=== PATIENT | male | born 1965 | race Caucasian/White ===

== ENCOUNTER → 2021-05-24 13:08 | Outpatient (BNVA) | payer MEDICAID, SELFPAY | PROVIDERS: PCP Physician Assistant; Visit Provider Physician Assistant Surgical ==

== ENCOUNTER → 2021-05-25 08:15 | Outpatient (BNVA) | payer MEDICAID, SELFPAY | PROVIDERS: PCP Physician Assistant; Visit Provider Surgery ==

== ENCOUNTER 2021-05-30 08:20 | Outpatient (REF) | payer OTHER, SELFPAY ==
--- NOTE | ~2021-05-30 | XR_ITS ---
EXAMINATION: XR CHEST CLINICAL INFORMATION: Obesity. COMPARISON: None TECHNIQUE: 2 views of the chest were obtained. FINDINGS: The lungs are clear. The cardiomediastinal silhouette is normal in size. There is no pleural effusion or pneumothorax. No acute osseous abnormality. XR/XR chest 2V IMPRESSION: No acute cardiopulmonary findings.
--- NOTE | 2021-05-30 08:32 | ECG_ITS ---
Test Reason : morbid obesity Blood Pressure : / mmHG Vent. Rate : 077 BPM Atrial Rate : 000 BPM P-R Int : 000 ms QRS Dur : 100 ms QT Int : 388 ms P-R-T Axes : 000 063 024 degrees QTc Int : 439 ms Atrial fibrillation Abnormal ECG No previous ECGs available Referred By: Darrell Saldana Electronically Signed By:SHANE TINOCO
[2021-05-30 08:46] LABS: MANUAL DIFF FLAG NO
[2021-05-30 09:10] LABS: Estimated Average Glucose 157 mg/dL; Hemoglobin A1c % 7.1 %
[2021-05-30 09:13] LABS: Basophils Percent Auto 0.5 % (0-2); Eosinophils Absolute Auto 0.1 X10*3/uL (0.0-0.4); Eosinophils Percent Auto 1.7 % (0-4); Hematocrit 47.3 % (42.0-52.0); Hemoglobin 16.1 g/dl (14.0-18.0); Imm Gran Abs Auto 0.02 X10*3/uL (0.00-0.03); Imm Gran Pct Auto 0.3 % (0.0-0.4); Lymphocytes Absolute Auto 1.7 X10*3/uL (1.2-4.9); Lymphocytes Percent Auto 25.4 % (20-40); Mean Corpuscular Hemoglobin 31.2 pg (27.0-33.0); Mean Corpuscular Volume 91.7 fL (80.0-98.0); Mean Platelet Volume 10.1 fL (9.4-12.4); Monocytes Absolute Auto 0.7 X10*3/uL (0.1-1.2); Monocytes Percent Auto 10.8 % (2-11); Neutrophils Percent Auto 61.3 % (45-73); Platelet Count 235 X10*3/uL (160-400); Red Blood Count 5.16 X10*6/uL (4.60-5.80); Red Cell Distribution Width 13.3 % (11.0-16.0); White Blood Count 6.5 X10*3/uL (4.8-10.8)
[2021-05-30 09:31] LABS: Alanine Aminotransferase 70 U/L (0-40); Albumin Level 4.3 g/dL (3.5-5.0); Alkaline Phosphatase 73 U/L (39-117); Anion Gap 12 (12-20); Aspartate Amino Transferase 50 U/L (5-37); Bilirubin Total 0.6 mg/dL (0.0-1.0); Blood Urea Nitrogen 18 mg/dL (9-16); C Reactive Protein 0.36 mg/dL (< or = 0.50); Calcium 9.6 mg/dL (8.4-10.2); Carbon Dioxide 23 mmol/L (22-29); Chloride 106 mmol/L (96-108); Cholesterol 82 mg/dL; Estimated Glomerular Filt Rate > 60; Glucose Random 96 mg/dL (60-115); HDL Cholesterol 37 mg/dL; Iron 77 mcg/dL (45-160); LDL Cholesterol Calculated 24 mg/dl; Percent Iron Saturation 21 % (15-50); Potassium 4.4 mmol/L (3.3-5.1); Sodium 137 mmol/L (135-145); Total Iron Binding Capacity 359 mcg/dL (228-428); Total Protein 6.8 g/dL (6.5-8.0); Triglycerides 108 mg/dL; Unsaturated Iron Binding 282 ug/dL
[2021-05-30 09:55] LABS: TSH reflex Free T4 2.19 uIU/mL (0.32-4.0); Vitamin D 25-OH Total 33.7 ng/mL (>30)
[2021-05-30 09:57] LABS: Folate > 20.0 ng/mL (> or = 4.0); Vitamin B12 641 pg/mL (200-900)
[2021-05-30 10:01] LABS: Ferritin 205 ng/mL (20-250); Insulin 15 uU/mL (2-29)
[2021-05-31 11:42] LABS: Calcium (PTHI) 9.4 mg/dL (8.6-10.3); PTHI 130 pg/mL (14-64)
[2021-06-03 10:06] LABS: Vitamin B1 7 nmol/L (8-30)
[2021-06-03 13:56] LABS: Zinc 72 mcg/dL (60-130)
[2021-06-07 22:17] LABS: Vitamin A 73 mcg/dL (38-98)
== END 2021-05-30 08:21 | disposition home or self-care (01) ==
LOC: HO.XRAY 08:20
PROVIDERS: PCP Physician Assistant; Visit Provider Surgery
DX: E03.9 Hypothyroidism, unspecified (principal); E10.9 Type 1 diabetes mellitus without complications; E66.01 Morbid (severe) obesity due to excess calories; I10 Essential (primary) hypertension; G47.30 Sleep apnea, unspecified; E78.5 Hyperlipidemia, unspecified; I48.91 Unspecified atrial fibrillation; Z99.89 Dependence on other enabling machines and devices
CPT/HCPCS: 36415; 71046; 80053; 80061; 82306; 82607; 82728; 82746; 83036; 83525; 83540; 83970; 84425; 84443; 84590; 84630; 85025; 86140; 93005

== ENCOUNTER 2021-05-31 11:28 | Outpatient (REF) | payer OTHER, SELFPAY ==
[2021-06-01 12:33] LABS: H Pylori Breath Test Negative (Negative)
== END 2021-05-31 11:29 ==
LOC: HO.LNP 11:28
PROVIDERS: Visit Provider Surgery
DX: Z11.0 Encounter for screening for intestinal infectious diseases (principal); Z20.822 Contact with and (suspected) exposure to COVID-19
CPT/HCPCS: 83013; 99211

== ENCOUNTER → 2021-07-18 09:27 | Outpatient (BNVA) | payer OTHER, SELFPAY | PROVIDERS: PCP Physician Assistant; Referring Provider Physician Assistant; Visit Provider Dietitian, Registered | DX: E66.01 Morbid (severe) obesity due to excess calories (principal); E10.9 Type 1 diabetes mellitus without complications; Z68.41 Body mass index [BMI] 40.0-44.9, adult | CPT/HCPCS: 97802 ==

== ENCOUNTER 2021-07-19 07:41 | Outpatient (REF) | payer OTHER, SELFPAY ==
--- NOTE | ~2021-07-19 | FL_ITS ---
EXAMINATION: XR FLUOROSCOPY UPPER GI WITH AIR CLINICAL INFORMATION: Morbidly severe obesity due to excess calories. Preoperative exam. COMPARISON: None TECHNIQUE: Routine upper GI air-contrast study was performed in upright and lying position. FINDINGS: Following oral administration of thick barium and effervescent granules there is normal propagation of bolus from the oral cavity through the pharynx, esophagus into stomach without any evidence of obstruction, narrowing or stricture. The course, caliber and peristalsis of the stomach, duodenal bulb and the sweep are normal. In the lying position, there is moderate gastroesophageal reflux with a small sliding hiatal hernia. The mucosal pattern of the esophagus, stomach and the duodenum is normal. FLUOROSCOPY TIME: 1.8 minutes DOSE AREA PRODUCT: 49.338 uGy-m2 (microgray-meter squared) FL/FL upper GI w air IMPRESSION: Moderate gastroesophageal reflux with a small sliding reducible hiatal hernia. Rest of the upper GI exam is unremarkable.
--- NOTE | ~2021-07-19 | US_ITS ---
EXAMINATION: US COMPLETE ABDOMEN WITH LIVER ELASTOGRAPHY CLINICAL INFORMATION: Obesity. COMPARISON: None. TECHNIQUE: Real-time imaging of the abdominal viscera. Noninvasive ultrasound liver fibrosis assessment is performed using Sola ElastPQ point quantification shear wave elastography (2D-SWE) with a C5-2 MHz transducer. Multiple elastography samples are obtained. FINDINGS: PANCREAS: Normal. ABDOMINAL AORTA: The proximal, middle, and distal aortic segments are normal in caliber. INFERIOR VENA CAVA: Visualized portions are normal. LIVER: Liver echotexture is increased. Liver contour is normal. The liver is enlarged. No focal lesion or intrahepatic biliary duct dilatation. The right lobe measures 21 cm in length. The left lobe measures 12 cm in length. Portal flow is normal/hepatopedal. Shear wave liver elastography median stiffness is 1.5 m/s (reference: normal median stiffness is 1.3 m/s or less). IQR/median stiffness to assess sampling precision is 0.07 (reference: good quality data set is IQR/median stiffness of 0.15 or less). GALLBLADDER: There are gallstones in the gallbladder. The gallbladder is normal in size. The gallbladder wall is normal. COMMON BILE DUCT: Normal in caliber measuring 0.6 cm in diameter. RIGHT KIDNEY: There is a 2 x 1.4 x 1.5 cm cyst exophytic to the lower pole. No hydronephrosis. No renal calculi or mass lesions. The kidney measures 12.8 cm in maximum dimension. LEFT KIDNEY: Normal. No hydronephrosis. No renal calculi or focal parenchymal lesions. The kidney measures 11.7 cm in maximum dimension. SPLEEN: Slightly enlarged. The spleen measures 13.4 cm in maximum dimension. FREE FLUID: None. US/US abdomen comp w elastography IMPRESSION: 1. Impression: Enlarged echogenic liver probably representing fatty infiltration. Gallstones. Mild splenomegaly. Right renal cyst. 2. Liver elastography: Adequate liver sampling. In the absence of other known clinical signs, rules out compensated advanced chronic liver disease. REFERENCE: Society of Radiologists in Ultrasound Liver Stiffness Thresholds (2020): LIVER STIFFNESS THRESHOLDS: *Liver Stiffness equal or less than 1.3 m/s: High probability of being normal. *Liver Stiffness less than 1.7 m/s: In the absence of other known clinical signs, rules out compensated advanced chronic liver disease. *Liver Stiffness 1.7-2.1 m/s: Suggestive of compensated advanced chronic liver disease but need further test for confirmation. *Liver Stiffness over 2.1 m/s: Rules in compensated advanced chronic liver disease. *Liver Stiffness over 2.4 m/s: Suggestive of clinically significant portal hypertension. QUALITY OF DATA SET: *IQR/Median value equal or less than 0.15 implies a quality data set. *IQR/Median value over 0.15 implies a poor quality data set. SIGNIFICANT CHANGE FROM PRIOR EXAM: Significant change if liver stiffness measurement is 10% or greater from prior exam. OTHER CONSIDERATIONS: The stage of liver fibrosis may be overestimated in the setting of acute hepatitis, liver inflammation, elevated liver function tests, hepatic vascular congestion, obstructive cholestasis, non-fasting state, and infiltrative diseases such as amyloidosis and lymphoma. In some patients with NAFLD, the liver stiffness thresholds for compensated advanced chronic liver disease may be lower. In causes other than viral hepatitis and NAFLD, liver stiffness thresholds are not well established.
== END 2021-07-19 07:42 | disposition home or self-care (01) ==
LOC: HO.US 07:41
PROVIDERS: PCP Physician Assistant; Visit Provider Surgery
DX: E66.01 Morbid (severe) obesity due to excess calories (principal); E10.9 Type 1 diabetes mellitus without complications; I10 Essential (primary) hypertension; G47.30 Sleep apnea, unspecified; E78.5 Hyperlipidemia, unspecified; I48.91 Unspecified atrial fibrillation; E03.9 Hypothyroidism, unspecified
CPT/HCPCS: 74246; 76705; 76981

== ENCOUNTER → 2021-07-21 10:41 | Outpatient (BNVA) | payer OTHER, SELFPAY | PROVIDERS: PCP Physician Assistant; Referring Provider Physician Assistant; Visit Provider Internal Medicine | DX: Z01.810 Encounter for preprocedural cardiovascular examination (principal); I48.19 Other persistent atrial fibrillation; I10 Essential (primary) hypertension; E11.8 Type 2 diabetes mellitus with unspecified complications; G47.30 Sleep apnea, unspecified | CPT/HCPCS: 93005; 99202 ==

== ENCOUNTER → 2021-07-22 08:08 | Outpatient (BNVA) | payer OTHER, SELFPAY | PROVIDERS: PCP Physician Assistant; Visit Provider Surgery ==

== ENCOUNTER 2021-07-25 14:20 | Outpatient (REF) | payer OTHER, SELFPAY ==
[2021-07-25 15:02] LABS: Estimated Average Glucose 134 mg/dL; Hemoglobin A1c % 6.3 %
== END 2021-07-25 14:21 | disposition home or self-care (01) ==
LOC: HO.LAB 14:20
PROVIDERS: Surgery; PCP Physician Assistant; Visit Provider Physician Assistant
DX: E11.8 Type 2 diabetes mellitus with unspecified complications (principal)
CPT/HCPCS: 36415; 83036

== ENCOUNTER → 2021-08-03 09:50 | Outpatient (REF) | payer OTHER, SELFPAY ==
--- NOTE | ~2021-08-03 | NM_ITS ---
Myocardial perfusion study Indication: Atrial fibrillation to evaluate for myocardial ischemia Technique: The patient was brought in for a Lexiscan perfusion study on 08/03/2021. Patient performed low-level exercise and was injected 0.4 mg of Lexiscan intravenously. Within a minute of injection, 45 mCi of sestamibi was given intravenously. Images were obtained using the SPECT gamma camera interlaced with the gating device. Images were obtained in supine position. Resting perfusion study was performed on 08/04/2021. Patient was administered 45 mCi of sestamibi intravenously at rest. Images were then obtained in supine position. Images obtained with and without CT attenuation. Total DLP 179 mGy-cm. Images were processed with the software and compared side to side in short axis, horizontal long axis and vertical long axis views. Findings: The stress perfusion study showed non attenuated images show mildly reduced uptake in the inferior wall of the LV myocardium. Remainder of the LV myocardium is normally perfused. Attenuation corrected images show normal uptake of radiotracer in all segments of LV myocardium. The gated study shows normal LV systolic function with calculated LVEF of 62%. LV cavity is mildly dilated size. The gated study shows normal systolic wall thickening and contraction of segments. Resting study shows no change in perfusion pattern except perfusion study. Gating at rest reveals normal systolic wall motion with ejection fraction at 58%. The findings are consistent with normal myocardial perfusion. NM/NM cardiolite stress test Impression: 1. Myocardial perfusion imaging study shows normal myocardial perfusion 2. Gated LVEF is 62% 3. Transient ischemic dilatation not present EKG is nondiagnostic for ischemia
--- NOTE | 2021-08-03 09:56 | CA_ITS ---
Acquisition Time: 2021-08-03 10:02:18 Total Exercise Time: 00:02:00 Test Indications: abn ekg, afib, preop Medications: see chart Protocol: LEXISCAN Max HR: 146 BPM 88% of Pred: 165 BPM Max BP: 124/076 mmHG Max Work Load: 1.6 METS Pharmacological stress test with Lexiscan injection, while walking on treadmill, without mild sob, no chest discomfort, without arrythmia, with normotensive response to injection, with nondiagnostic EKG for ischemia. Nuclear images pending. Test reviewed with Dr Wood. Referred By: Bowen Wood Overread By: KEVIN JUNIOR
== END ==
LOC: HO.CARD 09:50
PROVIDERS: Visit Provider Internal Medicine
DX: I48.19 Other persistent atrial fibrillation (principal)
CPT/HCPCS: 78452; 93017; A9500; J0280; J2785

== ENCOUNTER → 2021-08-08 07:24 | Outpatient (REF) | payer OTHER, SELFPAY ==
--- NOTE | 2021-08-08 07:27 | CA_ITS ---
Transthoracic Echocardiogram Patient (Last, First, Middle): Colton Taylor, Gender: Male Date of : 1965 Age: 56 Procedure Date: 08/08/2021 Procedure Type: Transthoracic Echocardiogram Location: OP Height: 182.88 cm Weight: 138.35 kg BSA: 2.55 m2 Heart Rate: bpm BP: 124 / 78 mmHg Fig Caprifier: Referring MD: Bowen Wood MD Symptoms: I48.19 - Other persistent atrial fibrillation Study Quality: Fair ECG Rhythm: Atrial Fibrillation Conclusions: - The left ventricular systolic function is normal. The calculated ejection fraction is 63% by biplane method. - There is mild mitral annular calcification. - No obvious valvular pathology seen on this study. Findings Left Ventricle Normal left ventricular cavity size. There is mildly increased left ventricular wall thickness. The left ventricular systolic function is normal. The calculated ejection fraction is 63% by biplane method. There is no evidence of regional wall motion abnormalities. Diastolic function is indeterminate on the basis of available data. Right Ventricle Normal right ventricular cavity size and systolic function. Atria The left atrium is moderately dilated. The right atrium is normal in size. Aortic Valve There is a normal trileaflet aortic valve. There is no aortic valve stenosis. There is no aortic valve regurgitation. Mitral Valve There is mild anterior mitral leaflet thickening. There is mild mitral annular calcification. There is trace mitral valve regurgitation. There is no mitral valve stenosis. Pulmonic Valve The pulmonic valve was not well visualized. Tricuspid Valve Normal tricuspid valve structure. There is no tricuspid valve regurgitation. The pulmonary artery systolic pressure is normal. Great Vessels The aortic annulus, sinuses of valsalva, and asc aorta are normal in size. Venous The inferior vena cava is normal in size and collapses greater than 50% with inspiration. Pericardium/Pleural There is no evidence of pericardial effusion. Prior Study Comparison No prior study available for comparison. Recommendations, Care & Conclusions No obvious valvular pathology seen on this study. Measurements 2D Linear Measurements IVSd: 1.20 0.6-0.9/0.6-1.0 cm LVIDd: 4.73 3.9-5.3/4.2-5.9 cm LVIDd Index: 1.85 2.4-3.2/2.2-3.1 cm/m2 LVIDs: 3.02 2.0-3.6 cm LVPWd: 1.23 0.7-1.1 cm Ao Root: 3.30 2.1-3.5 cm LA Diam: 4.40 2.7-3.8/3.0-4.0 cm LAIDs Index: 1.73 1.5-2.3 cm/m2 LV Mass: 271.69 67-162/88-224 g LV Mass Index: 106.54 43-95/49-115 g/m2 LVOT Diam: 2.00 3.0+(-)1.3 cm 2D Systolic Function EF 4C: 58.50 >55% EF 2C: 67.30 >55% EF BiP: 62.70 >55% Mitral Valve MV Pk E: 1.00 MV Decel Time: 117.00 E'Lateral: 14.40 E'Medial: 11.20 E/E' Med: 8.90 E/E' Lat: 6.90 PHT: 34.00 MVA PHT: 6.47 Decel [place]: 8.59 Aortic Valve AoV Pk Mikhail: 1.26 AoV Mn Mikhail: 0.74 AoV VTI: 0.25 AoV Pk Grad: 6.00 Aov Mn Grad: 3.00 KIP Cont.VTI: 2.50 LVOT LVOT Pk Mikhail: 0.97 LVOT Mn Mikhail: 0.68 LVOT VTI: 0.20 LVOT Pk Grad: 4.00 LVOT Mn Grad: 2.00 LVOT Diam: 2.00 LVOT Area: 3.14 Diastolic Function MV Pk E: 1.00 E'Medial: 11.20 E/E' Med: 8.90 E' Laterial: 14.40 E/E' Lat: 6.90 Right Ventricle TAPSE (mm): 21.00 TVS' Mkihail: 9.00 Great Vessels Aorta Ao Root-2D: 3.30 2.0-3.7 cm Ao Asc: 3.40 2.1-3.4 cm Pulmonary Valve PV Pk Mikhail: 0.92 Peak PV Grad: 3.00 Updated in Other Vendor System with Status of Final Bowen Wood MD electronically signed on 08/08/2021 12:07:37 PM with status of Final
== END ==
LOC: HO.CARD 07:24
PROVIDERS: Visit Provider Internal Medicine
DX: I48.19 Other persistent atrial fibrillation (principal)
CPT/HCPCS: 93306

== ENCOUNTER → 2021-08-19 08:12 | Outpatient (BNVA) | payer OTHER, SELFPAY | PROVIDERS: PCP Physician Assistant; Visit Provider Surgery ==

== ENCOUNTER → 2021-08-26 08:55 | Outpatient (BNVA) | payer OTHER, SELFPAY | PROVIDERS: PCP Physician Assistant; Referring Provider Physician Assistant; Visit Provider Surgery | DX: Z13.89 Encounter for screening for other disorder (principal) ==

== ENCOUNTER → 2021-08-29 11:55 | Outpatient (BNVA) | payer OTHER, SELFPAY | PROVIDERS: PCP Physician Assistant; Referring Provider Physician Assistant; Visit Provider Physician Assistant | DX: Z12.11 Encounter for screening for malignant neoplasm of colon (principal); I48.21 Permanent atrial fibrillation; G47.30 Sleep apnea, unspecified; E66.01 Morbid (severe) obesity due to excess calories; Z68.39 Body mass index [BMI] 39.0-39.9, adult | CPT/HCPCS: 99202 ==

== ENCOUNTER 2021-09-01 06:13 | Inpatient (IN) | payer OTHER, SELFPAY ==
[2021-08-25 11:16] LABS: MANUAL DIFF FLAG NO
[2021-08-25 12:32] LABS: Basophils Percent Auto 0.5 % (0-2); Eosinophils Absolute Auto 0.1 X10*3/uL (0.0-0.4); Eosinophils Percent Auto 1.7 % (0-4); Hematocrit 49.3 % (42.0-52.0); Hemoglobin 16.6 g/dl (14.0-18.0); Imm Gran Abs Auto 0.02 X10*3/uL (0.00-0.03); Imm Gran Pct Auto 0.3 % (0.0-0.4); Lymphocytes Absolute Auto 1.5 X10*3/uL (1.2-4.9); Lymphocytes Percent Auto 23.1 % (20-40); Mean Corpuscular HGB Conc 33.7 g/dl (31.0-36.0); Mean Corpuscular Hemoglobin 30.9 pg (27.0-33.0); Mean Corpuscular Volume 91.6 fL (80.0-98.0); Mean Platelet Volume 10.2 fL (9.4-12.4); Monocytes Absolute Auto 0.6 X10*3/uL (0.1-1.2); Neutrophils Absolute Auto 4.2 x10*3/uL (2.0-8.3); Neutrophils Percent Auto 65.4 % (45-73); Platelet Count 222 X10*3/uL (160-400); Red Blood Count 5.38 X10*6/uL (4.60-5.80); Red Cell Distribution Width 13.1 % (11.0-16.0); White Blood Count 6.4 X10*3/uL (4.8-10.8)
[2021-08-25 12:40] LABS: Estimated Average Glucose 126 mg/dL
[2021-08-25 12:41] LABS: INTERNATIONAL NORM RATIO 1.2 (0.9-1.1); Prothrombin Time 13.3 SEC (9.9-13.0)
[2021-08-25 12:44] LABS: Partial Thromboplastin Time 43.1 SEC (24.1-38.0)
[2021-08-25 13:27] LABS: Alanine Aminotransferase 51 U/L (0-40); Albumin Level 4.3 g/dL (3.5-5.0); Alkaline Phosphatase 74 U/L (39-117); Anion Gap 17 (12-20); Aspartate Amino Transferase 31 U/L (5-37); Bilirubin Total 0.6 mg/dL (0.0-1.0); Blood Urea Nitrogen 23 mg/dL (9-16); C Reactive Protein 0.35 mg/dL (< or = 0.50); Calcium 10.2 mg/dL (8.4-10.2); Carbon Dioxide 21 mmol/L (22-29); Chloride 103 mmol/L (96-108); Cholesterol 87 mg/dL; Estimated Glomerular Filt Rate > 60; Glucose Random 115 mg/dL (60-115); HDL Cholesterol 36 mg/dL; LDL Cholesterol Calculated 32 mg/dl; Potassium 4.5 mmol/L (3.3-5.1); Sodium 136 mmol/L (135-145); Total Protein 6.9 g/dL (6.5-8.0); Triglycerides 97 mg/dL
[2021-08-25 13:33] LABS: TSH reflex Free T4 2.23 uIU/mL (0.32-4.0)
[2021-08-25 13:42] VITALS: BMI 39.7
[2021-08-25 14:04] LABS: Insulin 12 uU/mL (2-29)
--- NOTE | 2021-08-27 01:27 | MHC.SHP ---
Pre-Procedural Eval Section A Date of Service: 08/27/21 The patient is an INPATIENT: Yes The History & Physical has been completed within 30 days and I have reviewed it.: Yes Section B Chief Complaint: obesity Relevant Family History (Specify if Yes): No Relevant Social History: None Present Medications: None Medical History: No relevant PMH History of Previous Operations: No relevant previous surgery Allergies: Allergies Allergy/AdvReac Type Severity Reaction Status Date / Time No Known Allergies Allergy Verified 08/19/21 12:11 Review of Systems Sugical H&P ROS: Negative: Constitution, Cardiovascular, Respiratory, Neurological, Psychiatric, Hem-Onc, Allergic/Immunologic, Gastrointestinal, Genitourinary, Musculoskeletal, Integumentary, Endocrine and Eyes/Ears/Nose/Throat Exam Surgical H&P Exam: Normal: HEENT, Normal: Heart, Normal: Lungs, Normal: Extremities, Normal: Abdomen, Normal: Skin and Normal: Neurological Plan Diagnosis/Plan: Unchanged I have reviewed the history and physical and performed a pertinent physical examination on my patient. No changes have occurred unless specified.
--- NOTE | 2021-08-29 12:50 | P.CONAN_ITS ---
Documented by User: Freida Singh NP 08/31/21 10:54 HPI - Anesthesia Eval Consult details Narrative: 56yo Gastric Bypass Laparoscopic,EGD, possible diaphragmatic hernia, possible ventral hernia, possible open Pradaxa for afib (to bridge with arixtra) [facility] Active Problems Active Problems: All Active Problems (Updated 08/29/21 @ 12:38 by Brittni Hoskins PA-C) Exposure to COVID-19 virus (Acute) Colon cancer screening (Acute) Verruca (Acute) Vitamin B1 deficiency (Acute) Persistent atrial fibrillation (Acute) Preoperative cardiovascular examination (Acute) Type 2 diabetes mellitus with unspecified complications (Acute) Essential hypertension (Acute) Major depressive disorder, recurrent, mild (Acute) Herniated cervical disc (Acute) Hypothyroidism (Acute) Atrial fibrillation (Acute) Hyperlipidemia (Acute) Sleep apnea with use of continuous positive airway pressure (CPAP) (Acute) Hypertension (Acute) Insulin dependent type 1 diabetes mellitus (Acute) Morbid obesity (Acute) Past Medical History Medical History (Updated 09/01/21 @ 14:19 by Darrell Saldana MD) Atrial fibrillation COVID-19 vaccine series completed Herniated cervical disc Hyperlipidemia Hypertension Hypothyroidism Insulin dependent type 1 diabetes mellitus Liver fibrosis Morbid obesity Obesity Sleep apnea with use of continuous positive airway pressure (CPAP) Steatosis, liver Family History Family History Father Afib CVA (cerebral vascular accident) Mother CVA (cerebral vascular accident) Afib Surgical History Surgical History (Updated 09/01/21 @ 14:16 by Michelle Rosa PA-C) History of cardioversion Social History Social History (Updated 08/29/21 @ 12:37 by Brittni Hoskins PA-C) Household Members Other:: Housing: Condominium Are you a primary home care scheduler to a significant other at home: No Do you presently have visiting nurse or other home services: No Alcohol intake: current Alcohol intake frequency: does not drink Patient Tobacco Use Status: Never used Tobacco e-Cigarette/Vaping Use: Never Used Second Hand Smoke Exposure: No Use of substances other than those prescribed or required for medical reasons: No Have you been hit, kicked, punched, or otherwise hurt by someone within the past year? If so, by whom?: No Are you DNR?: No Advance Directives: No Advance Directives Information Provided: Yes (brochure mailed) Advance Directives on File: No Recently lost weight without trying: No Eating poorly because of decreased appetite: No Nutrition Risks: No Nutritional Risk Poor oral hygiene: No Current occupational status: employed and unemployed Current occupation: Medical Insurance Meds Allergies Allergy/AdvReac Type Severity Reaction Status Date / Time No Known Allergies Allergy Verified 08/29/21 12:14 Home Medications Medication Instructions Recorded Confirmed Last Taken Type dulaglutide 1.5 mg/0.5 mL 1.5 mg SUBCUT QWEEK 05/25/21 08/29/21 Unknown History subcutaneous pen injector (Trulicity) fenofibrate 150 mg capsule 150 mg PO DAILY 05/25/21 08/29/21 Unknown History metoprolol succinate 100 mg 100 mg PO DAILY 05/25/21 08/29/21 Unknown History tablet,extended release 24 hr empagliflozin 25 mg tablet 12.5 mg PO DAILY tab 07/20/21 08/29/21 Unknown History (Jardiance) insulin regular hum U-500 conc 30 unit SUBCUT QAM ml 07/20/21 08/29/21 Unknown History (Humulin R U-500 (Conc) Insulin Kwikpen) metformin 1,000 mg tablet 500 mg PO BID tab 07/20/21 08/29/21 Unknown History Exam Exam Date and Time: August 29, 2021 1250 Height,Weight and Vital Signs: Height 6 ft Weight 132.903 kg Pertinent Lab Results Pertinent Lab Results: Laboratory Tests 08/25/21 08/25/21 08/25/21 11:10 11:13 11:13 WBC 6.4 RBC 5.38 Hgb 16.6 Hct 49.3 MCV 91.6 MCH 30.9 MCHC 33.7 RDW 13.1 Plt Count 222 MPV 10.2 Immature Gran % (Auto) 0.3 Neut % (Auto) 65.4 Lymph % (Auto) 23.1 Harmon % (Auto) 9.0 Eos % (Auto) 1.7 Baso % (Auto) 0.5 Lymph # (Auto) 1.5 Harmon # (Auto) 0.6 Eos # (Auto) 0.1 Baso # (Auto) 0.0 Abs Immat Gran (auto) 0.02 Absolute Neuts (auto) 4.2 Absolute Nucleated RBC 0.000 Nucleated RBC % (auto) 0.0 PT 13.3 H INR 1.2 H APTT 43.1 H Sodium Potassium Chloride Carbon Dioxide Anion Gap BUN Creatinine Estim Creat Clear Calc Estimated GFR Random Glucose Estimat Average Glucose Hemoglobin A1c % Insulin Level Calcium Total Bilirubin AST ALT Alkaline Phosphatase C-Reactive Protein Total Protein Albumin Triglycerides Cholesterol LDL Cholesterol, Calc HDL Cholesterol TSH Blood Type A Negative Antibody Screen NEGATIVE 08/25/21 08/25/21 11:13 11:13 WBC RBC Hgb Hct MCV MCH MCHC RDW Plt Count MPV Immature Gran % (Auto) Neut % (Auto) Lymph % (Auto) Harmon % (Auto) Eos % (Auto) Baso % (Auto) Lymph # (Auto) Harmon # (Auto) Eos # (Auto) Baso # (Auto) Abs Immat Gran (auto) Absolute Neuts (auto) Absolute Nucleated RBC Nucleated RBC % (auto) PT INR APTT Sodium 136 Potassium 4.5 Chloride 103 Carbon Dioxide 21 L Anion Gap 17 BUN 23 H Creatinine 1.08 Estim Creat Clear Calc TNP Estimated GFR > 60 Random Glucose 115 Estimat Average Glucose 126 Hemoglobin A1c % 6.0 Insulin Level 12 Calcium 10.2 D Total Bilirubin 0.6 AST 31 ALT 51 H Alkaline Phosphatase 74 C-Reactive Protein 0.35 Total Protein 6.9 Albumin 4.3 Triglycerides 97 Cholesterol 87 LDL Cholesterol, Calc 32 HDL Cholesterol 36 TSH 2.23 Blood Type Antibody Screen Narrative Narrative: EKG 05/2021 Vent. Rate : 077 BPM ? ? Atrial Rate : 000 BPM ?? P-R Int : 000 ms? QRS Dur : 100 ms ? ? QT Int : 388 ms ? ? ? P-R-T Axes : 000 063 024 degrees ?? QTc Int : 439 ms ? Atrial fibrillation Abnormal ECG No previous ECGs available ECHO 07/2021 Conclusions: - The left ventricular systolic function is normal.? The ? calculated ejection fraction is 63% by biplane method. ? - There is mild mitral annular calcification.? - No obvious valvular pathology seen on this study.?? NM cardiolite stress test 07/2021 Impression: ? 1.? Myocardial perfusion imaging study shows normal myocardial perfusion 2.? Gated LVEF is 62% 3. Transient ischemic dilatation not present ? EKG is nondiagnostic for ischemia Assessment and Plan Assessment Anesthesia Assessment: Chart Reviewed Documented by User: Ashwin Chicas MD 09/01/21 16:30 HPI - Anesthesia Eval Consult details Narrative: 56yo Gastric Bypass Laparoscopic ,EGD, possible diaphragmatic hernia, possible ventral hernia, possible open lower back pain with radiation to b/l LE , left greater than right . Pradaxa for afib (to bridge with arixtra, ) last dose taken on Sunday morning( 08/30/21) [facility] Past Medical History Medical History (Updated 09/01/21 @ 14:19 by Darrell Saldana MD) Atrial fibrillation COVID-19 vaccine series completed Herniated cervical disc Hyperlipidemia Hypertension Hypothyroidism Insulin dependent type 1 diabetes mellitus Liver fibrosis Morbid obesity Obesity Sleep apnea with use of continuous positive airway pressure (CPAP) Steatosis, liver Family History Family History Father Afib CVA (cerebral vascular accident) Mother CVA (cerebral vascular accident) Afib Family history of problems with anesthesia: No Surgical History Surgical History (Updated 09/01/21 @ 14:16 by Michelle Rosa PA-C) History of cardioversion History of Problems with Anesthesia: No Social History Social History (Updated 08/29/21 @ 12:37 by Brittni Hoskins PA-C) Household Members Other:: Housing: Condominium Are you a primary home care scheduler to a significant other at home: No Do you presently have visiting nurse or other home services: No Alcohol intake: current Alcohol intake frequency: does not drink Patient Tobacco Use Status: Never used Tobacco e-Cigarette/Vaping Use: Never Used Second Hand Smoke Exposure: No Use of substances other than those prescribed or required for medical reasons: No Have you been hit, kicked, punched, or otherwise hurt by someone within the past year? If so, by whom?: No Are you DNR?: No Advance Directives: No Advance Directives Information Provided: Yes (brochure mailed) Advance Directives on File: No Recently lost weight without trying: No Eating poorly because of decreased appetite: No Nutrition Risks: No Nutritional Risk Poor oral hygiene: No Current occupational status: employed and unemployed Current occupation: Medical Insurance Meds Allergies Allergy/AdvReac Type Severity Reaction Status Date / Time No Known Allergies Allergy Verified 08/29/21 12:14 Home Medications Medication Instructions Recorded Confirmed Last Taken Type dulaglutide 1.5 mg/0.5 mL 1.5 mg SUBCUT QWEEK 05/25/21 08/29/21 Unknown History subcutaneous pen injector (Trulicity) fenofibrate 150 mg capsule 150 mg PO DAILY 05/25/21 08/29/21 Unknown History metoprolol succinate 100 mg 100 mg PO DAILY 05/25/21 08/29/21 Unknown History tablet,extended release 24 hr empagliflozin 25 mg tablet 12.5 mg PO DAILY tab 07/20/21 08/29/21 Unknown History (Jardiance) insulin regular hum U-500 conc 30 unit SUBCUT QAM ml 07/20/21 08/29/21 Unknown History (Humulin R U-500 (Conc) Insulin Kwikpen) metformin 1,000 mg tablet 500 mg PO BID tab 07/20/21 08/29/21 Unknown History Exam Airway Mallampati Class: IV TM Dist: >3cm Neck ROM: Full Loose/Missing/Broken Teeth: Yes Heart: Irregular Lungs: distant breath sounds Assessment and Plan Assessment Anesthesia Assessment: Anesthesia Plan Discussed Final Anesthetic Review Family History of Problems with Anesthesia: No History of Problems with Anesthesia: No NPO: Yes ASA Class: III Final Preanesthetic Review: Meds/Allgs Chart Reviewed, Consent Obtained/Reviewed and Anes Risks/Benef Reviewed Patient Risk: High Procedure Risk: Intermediate Anesthetic Plan Anesthetic Plan: GA Disposition: Inp. Admit - Standard Bed
[2021-08-31 11:40] LABS: COVID-19 Test Negative (Negative)
[2021-09-01] VITALS (16 sets, daily range): BP systolic 115–168; BP diastolic 72–95; PULSE 60–88; RESP 15–24; TEMP 36.2–37; O2SAT 94–100
--- NOTE | ~2021-09-01 | FL_ITS ---
EXAMINATION: GASTROGRAFIN UPPER GI EXAM. CLINICAL INFORMATION: Postop day 1 following gastric bypass COMPARISON: None TECHNIQUE: Routine upright upper GI Gastrografin study was performed. FINDINGS: Following oral administration of Gastrografin upright view there is normal propagation bolus from the oral cavity through the pharynx, esophagus into stomach. There is rapid passage of contrast from a small stomach following gastric bypass into the duodenum. No obstruction or narrowing seen. The soft tissues are normal. 20 minute Delayed images obtained of the abdomen reveals contrast within the mid jejunum segment. FL/FL upper GI w gastrografin IMPRESSION: Status post gastric bypass there is normal propagation of bolus from the esophagus through the small stomach into the duodenum and into the jejunum on delayed images. FLUOROSCOPY TIME: 0.8 minutes. DOSE AREA PRODUCT: 17.101. IMAGES: 11.
[2021-09-01 06:28] LABS: Glucose, Whole Blood 115 mg/dL (60-115)
[2021-09-01] MEDS: Lactated Ringers 1,000 ML 999 ML IV (06:48)
[2021-09-01] MEDS: Lactated Ringers 1,000 ML 100 ML IVCONT (06:49)
--- NOTE | 2021-09-01 07:16 | PHA.MEDREC ---
Pharmacy Consult ? Medication Reconciliation Pharmacy has reviewed the medication reconciliation complete by nursing. Annette Villanueva, dawnaD
[2021-09-01] MEDS: ceFAZolin Sodium/Dextrose,Iso 2 GM/50 ML PIGGYBACK IV ×2 (08:00→17:37)
[2021-09-01 11:10] LABS: Glucose, Whole Blood 165 mg/dL (60-115)
--- NOTE | 2021-09-01 14:03 | P.BOP_ITS ---
Brief Operative Note Date of Service: 09/01/21 Pre-op diagnosis: Severe obesity with comorbidities (see below) Post-op diagnosis: same (& incarcerated diaphragmatic hernia and congenital abdominal adhesions) Procedure: INITIAL PATIENT BMI ON PRESENTATION AT OUR OFFICE: 45. 9 kg/m2 LAST BMI BEFORE SURGERY: 39.4 kg/m2 COMORBIDITIES: sleep apnea on CPAP, atrial fibrilation, hypertension, insulin dependent diabetes, hyperlipidemia, hypothyroidism, GERD, diaphragmatic hernia, herniated disc, cholelithiasis, liver steatosis, liver fibrosis ?The patient presented to the Weight Management Program with significant obesity that was negatively impacting the patient's comorbidities as listed above.? The program is a phased program with a special focus on preoperative medical weight management to promote substantial weight loss and prepare the patients for the second phase of the program: bariatric surgery. The patient participated in an intensive weekly lifestyle ?intervention and exercise program during which the patient ?has lost between the initial office visit and the last preoperative visit 48lbs, or 14.18% of initial actual body weight. It was deemed appropriate for the patient to now have bariatric surgery. In light of the current Covid-19 pandemic and the well documented strong association of obesity and increased risk of worse outcomes if infected with Covid-19 (REFERENCES: https://pubmed.ncbi.nlm.nih.gov/86264425/ ,? https://pubmed.ncbi.nlm.nih.gov/86435518/ ), any delay in undergoing bariatric surgery may lead to the patient's worsening health condition and increased?risk of more severe Covid-19 disease if infected. In addition a recent?study from [facility] published in [employer] on 06/06/2021 ([email or web address]) found that, among patients with obesity, substantial weight loss achieved with surgery was associated with improved outcomes of COVID-19 infection. The findings suggest that obesity can be a modifiable risk factor for the severity of COVID-19 infection. In addition, the patient met the BMI-criteria for bariatric surgery based on the BMI on initial presentation. The patient should not be penalized for achieving such weight loss because ?it is not sustainable long-term without surgical intervention and it was achieved in preparation for bariatric surgery ?under my direction and based on my published research ([email or web address] and? https://www.soard.org/article/[email or web address](73)52811-X/pdf ) ?that a 10% preoperative weight loss improves long-term weight loss after surgery and reduces perioperative complications.? Insurance carriers such as [facility] have endorsed my recommendations ?and have included in their policies criteria to include a 10% preoperative weight loss requirement. PROCEDURE: Upper endoscopy, laparoscopic repair of incarcerated diaphragmatic hernia, laparoscopic lysis of adhesions and laparoscopic Tiffany-en-Y gastric bypass with a Tiffany limb of 170cm INDICATIONS: This is a 56 year-old male with an initial BMI of 45.9 kg/m2 and associated comorbid conditions as described previously. After appropriate workup was performed, the patient was electively scheduled for laparoscopic, possibly open, gastric bypass. The risks and complications of the procedure were discussed with the patient in advance, particularly the possibility of ; pulmonary embolism; anastomotic leak; bleeding; bowel obstruction; cardiac, pulmonary, or renal complications; as well as long-term problems such as insufficient weight loss, vitamin deficiency, anastomotic strictures, or ulcers. The patient understood all the risks, and was in agreement to proceed with surgery. DESCRIPTION OF PROCEDURE: After informed consent was obtained from the patient, the patient was given preoperative antibiotics, and was transferred to the operating room. After successful induction of general anesthesia, a Romero catheter and pneumatic compressive devices were placed on both lower extremities. An upper endoscopy was performed next. The oropharynx and esophagus appeared to be within normal limits.There was a diaphragmatic hernia present of moderate size consistent with the findings of the preoperative upper GI. The stomach was entered. Then after all fluid and air were suctioned and the stomach was fully decompressed, the scope was withdrawn and secured in the mid esophagus. The patient was then prepped and draped in the usual sterile manner, and abdominal access was established at the right upper quadrant with the Bryant technique. A 12 mm blunt port was inserted, and the abdomen was insufflated with CO2 to a pressure of 15 mmHg. Under direct visualization, additional ports were placed, specifically a 5 and a 12 mm Versi-Step port, to the left and right of the umbilicus, two 5 mm ports to the left upper quadrant, and a 5 mm Versi-Step port to the right upper quadrant. Using the EndoClose suture passer device, we placed a #1 Polysorb tie across the falciform ligament in order to retract it up against the abdominal wall and prevent injury of the ligament with our instruments during the procedure. Following that, the patient was placed in a steep reverse Trendelenburg position. An additional 5 mm port was placed to the right flank for the Mediflex retractor that was used to retract the left lobe of the liver. The pars flaccida was opened with the ultrasonic device and the lesser sac was entered. The angle of His was opened with the ultrasonic device the fundus of the stomach from any diaphragmatic and splenic attachments. I then opened the gastrocolic ligament between the transverse colon and the greater curvature of the stomach with the ultrasonic device to enter the lesser sac and facilitate delivery of the Tiffany limb through the lesser sac at a later step of the procedure. There were extensive congenital adhesions between the pancreas and posterior gastric wall. Those were lysed completely with the ultrasonic device. Adhesiolysis took approximately 45 min to complete. There was an obvious significant-sized incarcerated hiatal hernia. I continued dissecting along the hiatus toward the left sander and the angle of His. There was a replaced left hepatic artery which was recognized and preserved. We fully mobilized the fat pad that was incarcerated in the hernia. I then continued by dissecting even further into the posterior retro-esophageal space all the way to the angle of His. We continued to mobilize the esophagus into the mediastinum circumferentially. Both vagal nerves were seen and preserved. At that point, I was able to have at least 3 to 5 cm of esophagus into the abdomen. After I completely mobilized the esophagus from both the left and right sander and we had a good mobilization of the esophagus, I closed the hernia defect with three interrupted #0 Surgidac sutures using the Endo Stitch device, two of which were placed anterior and one posterior. The hernia repair was extremely difficult due to the significant amount of intra-abdominal fat abd incarcerated fat pad and stomach requiring 2 hours to complete. The lesser omentum was divided with two AEON CAR[place]-45 articulating bowman loads. We opened the angle of His with the ultrasonic device, the fundus of the stomach from any diaphragmatic or splenic attachments. After a window was established there, the stomach was divided transversely with an CAR[place]INA-45 articulating purple load. Every effort was made that the gastric pouch had a tubular and not spherical shape by limiting the vertical division of the stomach with the first staple load at the lesser curvature. A second articulating Endo CAROLINA-45 purple load was fired next towards the angle of His. The staple line of the gastric remnant was then reinforced with a running 2-0 Surgidac suture using the Endo Stitch device. The retrogastric space was dissected after the first two staple loads were fired. The retrogastric space was opened in the avascular plane medially to the splenic artery and laterally to the left sander all the way to the angle of His. The gastric pouch was completed with two additional CAROLINA-60 orange and purple articulating loads. The remaining staple line of the gastric remnant was also reinforced with a running 2-0 Surgidac suture using the Endo Stitch device. The staple line of the gastric pouch was reinforced with Hemoclips. The patient was then placed in supine position, and after we retracted the transverse colon and the omentum cephalad, we identified the ligament of Treitz. I counted 50 cm from the ligament of Treitz, and the small bowel and the mesentery were divided with an Endo CAROLINA-60 white load. Using the ultrasonic device, we opened the peritoneum at the root of the mesentery further to gain extra mobility. A clip was used to nallely the proximal end of the divided bowel, the bilio-pancreatic end, which was run back to the ligament of Treitz to c onfirm that we had marked the correct side and we had done so. We then developed the mesocolic window slightly to the left and superior to the ligament of Treitz using the ultrasonic device. The apex of the Tiffany limb was identified. Following that, we grasped the apex of the Tiffany limb with an articulating bowel grasper, and after we made sure there was no twisting of the mesentery, it was delivered in a retrocolic, retrogastric fashion through the mesocolic window which we had previously made. Following that, we noted there was no tension between the gastric pouch and the Tiffany limb. Enterotomies were made at the apex of the pouch and the Tiffany limb, and the gastro-jejunostomy was made with a Medtronic Endo CAR[place]-45 alcaraz load measured to be 4.5 cm in diameter. The enterotomy was closed using the Endo Stitch device in one layer of running 2-0 Polysorb suture in a [place] fashion starting from each corner of the enterotomy and tying the two ends together in the center of the enterotomy. The Tiffany limb was clamped with a bowel clamp approximately 15 cm from the gastro-jejunostomy, and a leak test was performed by submerging the anastomosis in saline and insufflating air off the scope into the pouch. The hiatal hernia repair was intact, and there was no narrowing of the GE junction. There was no air leak during the test. There was no significant ischemia of the mucosa of the gastric pouch or Tiffany limb. There was no bleeding from the suture or staple lines of the anastomosis, as well as the staple line of the gastric pouch which was clearly seen in its entirety. In addition, the anastomosis was patent, and we easily advanced the scope into the proximal Tiffany limb. With the scope pulled back at the esophagus, we reinforced the anastomosis circumferentially with multiple interrupted 2-0 Polysorb sutures in a Lembert type fashion using the Endo Stitch device. At that point, we pulled the endoscope back to the esophagus while we were decompressing the Tiffany limb and gastric pouch from any remaining air. At that point, the patient was placed in supine position, and after we reduced the Tiffany limb back into the abdomen, I counted 170 cm from the gastro- jejunostomy. An enterotomy was made there with the ultrasonic device. After a similar enterotomy was made at the apex of the bilio-pancreatic limb, the jejuno-jejunostomy was made with an Endo CAR[place]-60 white load. The enterotomy was closed with another 60 white load after appropriate alignment with four interrupted 2-0 Surgidac sutures. Two anti-obstruction sutures were placed next between the staple line of the bilio-pancreatic limb and the mesentery of the Tiffany limb distal from the anastomosis to prevent kinking of the anastomosis. We then closed the small bowel mesenteric defect in a running fashion using a running 2-0 Surgidac suture using the Endo Stitch device. We checked the anastomosis at the end. The jejuno-jejunostomy was patent. The Tiffany limb was not narrowed. The staple lines were intact, viable, without evidence of any ischemia, bleeding, or any open areas, and the entire anastomosis was sitting nicely without tension, narrowing, or kinking. I then closed the Mccloud's defect with one interrupted 2-0 Surgidac suture in a U-type fashion and then the mesocolic defect with four interrupted 2-0 Sofsilk sutures in a U-type fashion. The Tiffany limb was clamped 20 cm inferior to the mesocolic window and another endoscopy was performed. We could easily pass the gastroscope through the gastro-jejunostomy and mesocolic window without any narrowing, kinking, or evidence of bleeding or ischemia. At that point the gastroscope was withdrawn from the patient?s mouth while we were decompressing the bowel and the stomach from any remaining air. I ran back the Tiffany limb from the mesocolic window to the jejuno-jejunostomy which appeared to be normal without any twisting or kinking. All blood clots were suctioned. We carefully positioned the transverse colon epiploic appendages to the root of the small bowel mesentery to prevent any adhesions between them and the anastomosis that could lead to an internal hernia. I then placed the patient back in a steep reverse Trendelenburg position. We looked into the lesser sac to see how the Tiffany limb was situating and it was situating well. There was no bleeding from the suture lines of the remnant, angle of His, and gastric pouch, as well as from the mesentery of the Tiffany limb. At this point we placed a 10 mm Otis drain underneath the gastro-jejunostomy and we secured the skin level with an #0 Sofsilk suture. The Mediflex retractor was removed, and the undersurface of the liver was inspected and there was no bleeding. The patient was placed in supine position. We closed the fascial defect of the two 12 mm port sites laparoscopically with the EndoClose suture passer device using #1 Polysorb sutures antibiotic coated. Then 120 cc 0.25 % Marcaine and 10mg of Dexamethasone were used to infiltrate both fascial closures as well as all skin incisions. At this point, the abdomen was deflated, all ports were removed under direct vision, and no bleeding was noted from any of the port sites. The skin incisions were irrigated with saline and were closed with 4-0 absorbable monofilament sutures. Steri-Strips and OpSites were used to cover all incisions. The patient was extubated and was transferred in stable condition to the recovery room for further care. I was present and performed all meadows parts of the procedure. Ms. Rosa was the international first officer. There were no residents to assist with this case. Mike Saldana MD, PhD, FACS Surgeon: Darrell Saldana MD Anesthesia: GETA, local and other (TAP block) Was an Nursing Education Specialist used for this Procedure?: No Nursing Education Specialist: Michelle Rosa Estimated blood loss (mL): 20 IV fluids (mL): 4,000 Pathology: other (hernia sac) Condition: stable Disposition: PACU
[2021-09-01] MEDS: Lactated Ringers 1,000 ML 150 ML IVCONT (14:04)
[2021-09-01] MEDS: Famotidine/PF 20 MG/2 ML VIAL IVPUSH ×2 (14:06→21:11)
[2021-09-01 14:16] LABS: Hematocrit 46.1 % (42.0-52.0); Hemoglobin 15.7 g/dl (14.0-18.0)
--- NOTE | 2021-09-01 14:17 | P.DS_ITS ---
DS: Providers Provider Date of Service: 09/02/21 Date of admission: 09/01/21 06:13 Primary care physician: Quique Del Cid PA-C DS: Summary Hospital Course Hospital Course: ADMITTING DIAGNOSIS: Refractory morbid obesity with a BMI of X kg/m2 and associated co-morbid conditions including A fib, HTN, hypothyroidism, DM, VILMA, hyperlipidemia DISCHARGE DIAGNOSIS: as above plus s/p hiatal hernia repair and gastric bypass Past surgical history: cardioversion PROCEDURE: Fpiisiuq-lmahbb-rplpujokrmx and laparoscopic Tiffany-en-Y gastric bypass and hiatal hernia repair DISCHARGE SUMMARY: HISTORY OF PRESENT ILLNESS: The patient is a 56 year-old man with a BMI of 45.8 kg/m2 and associated co- morbidities as described previously. The patient had extensive preoperative work-up, lost 45.4 lbs preoperatively and was electively scheduled for laparoscopic, possible open gastric bypass. Risks and complications of the surgery were discussed with the patient in advance, particularly the possibility of , pulmonary embolism, anastomotic leak, bleeding, bowel injury, GERD, cardiac, renal or pulmonary complications. The patient understood all the risks and was in agreement with the surgical plan. HOSPITAL COURSE: The patient underwent uneventful laparoscopic Tiffany-en-Y gastric bypass and hiatal hernia repair on the day of admission. Postoperatively, the patient was transferred to the surgical floor on a monitored bed and hemoglobin during the first 8 hours remained stable at mg/dl. The patient was on IV Acetaminophen and dilaudid for pain control. On postoperative day one, the patient was feeling well without nausea, vomiting, fevers, or tachycardia. The patient had some mild incisional pain. The abdomen was soft. UGI showed no leak or obstruction. The patient was started on 1 ounce of water or ice every half hour. The Romero was discontinued. During the first day, the patient did fairly well, having some incisional pain, but able to ambulate adequately and to tolerate liquids well. Since the patient is doing well, we decided that the patient was ready to be discharged. The patient was given instructions to follow-up with me next week and to call my office for any fever over 101, persistent abdominal pain, nausea, vomiting, change in the color of the LUCA fluid, symptoms of DVT such as calf tenderness, or leg swelling, or pulmonary embolism such as chest pain or shortness of breath. The patient was also instructed to drink 40-60 ounces of liquids per day using the 1-ounce cups. The patient was given prescription for Tylenol for pain, Zofran prn for nausea, pantoprazole and carafate. The patient was encouraged to ambulate and use the incentive spirometry. The patient was allowed to shower, but no baths, and encouraged to stay active at home. All of these instructions were given to the patient personally. All questions were answered and the patient understood all instructions. The instructions were given to the patient in print as well. Please send a copy of this report to X Time Spent with Patient Time attestation: Total time spent providing and/or coordinating discharge services: Discharge coordination time: Less than 30 minutes Quality: Stroke Does the patient have a stroke diagnosis?: No Physical Exam Vital Signs: Vital Signs: Last Vital Signs Temp 97.1 F 09/01/21 13:46 Pulse 82 09/01/21 14:01 Resp 20 09/01/21 14:01 BP 125/82 09/01/21 14:01 Pulse Ox 94 09/01/21 14:01 BMI result Body Mass Index 39.7 DS: Data Data Completed and Pending Pending studies at discharge: Pending at discharge 09/01/21 13:14 Surgical [PTH] Routine Labs on day of discharge: Laboratory Results - last 24 hr 09/01/21 09/01/21 09/01/21 06:24 11:06 14:01 Hgb 15.7 Hct 46.1 POC Glucose 115 165 H Discharge Plan Discharge Anticipated Discharge Date/Time: 09/02/21 15:54 Patient Disposition: Home, Self-Care Discharge Diagnosis: s/p gastric bypass and hiatal hernia repair Referrals: Quique Del Cid PA-C [Primary Care Provider] - 1 Week Discharge Medications: Continued verapamil 240 mg tablet extended release 240 mg PO DAILY 90 Days Qty: 90 1RF levothyroxine [Synthroid] 50 mcg tablet 50 mcg PO DAILY Qty: 90 1RF metoprolol succinate 100 mg tablet extended release 24 hr 100 mg PO DAILY 0RF pantoprazole 40 mg tablet,delayed release (DR/EC) 40 mg PO DAILY Qty: 30 2RF Label Comments: took 1/2 tab of metformin sucralfate 100 mg/mL suspension 10 ml PO BID Qty: 400 2RF ondansetron HCl 4 mg tablet 4 mg PO Q12H Qty: 20 0RF Held Pradaxa 150 mg capsule 150 mg PO BID 90 Days Qty: 180 1RF Hold Instructions: Discuss restart with Dr Saldana fenofibrate 150 mg capsule 150 mg PO DAILY 0RF Hold Instructions: Discuss restart date with Dr Saldana Trulicity 1.5 mg/0.5 mL pen injector 1.5 mg subcut QWEEK 0RF Hold Instructions: Discuss if you should restart with Dr Saldana Humulin R U-500 (Conc) Kwikpen 500 unit/mL (3 mL) insulin pen 30 unit subcut QAM 0RF Hold Instructions: Discuss dosage with Dr Saldana metformin 1,000 mg tablet 500 mg PO BID 0RF Hold Instructions: Do not restart Jardiance 25 mg tablet 12.5 mg PO DAILY 0RF Hold Instructions: Discuss restart with Dr Saldana fondaparinux 2.5 mg/0.5 mL syringe 2.5 mg subcut Q24H Qty: 5 2RF Hold Instructions: Discuss when to restart with Dr Saldana Discontinued thiamine HCl (vitamin B1) 100 mg tablet 100 mg PO DAILY Qty: 30 2RF polyethylene glycol 3350 [Miralax] 17 gram powder in packet 17 g PO DAILY Qty: 14 0RF Rx Instructions: Mix each packet with 8oz of water and do 7 packets on 08/30/21 and another 7 packets on 08/31/21 No Action (DME) FreeStyle Manda 14 Day Sensor Kit See Rx Instructions .Route Qty: 1 3RF Rx Instructions: As directed (DME) FreeStyle Manda 2 [place] Misc See Rx Instructions .Route Qty: 1 0RF Rx Instructions: As directed Discharge Orders: Discharge Order (Routine); Ordered 09/02/21 Ordered By: Darrell Saldana Diet: other Activity on Discharge: No heavy lifting Stand Alone Forms: Patient Portal Discharge page Care Plan Goals: weight loss Health Concerns: morbid obesity Plan of Treatment: No tub baths, sex or returning to work until discussed at first post op appointment. No exercise, alcohol, tobacco or illegal drug use. Continue to use incentive spirometer hourly while awake. Walk in home for 5- 10 minutes every 2 hours during the first week. Continue phase 1 diet today and start phase 2 diet tomorrow morning. Follow all instructions in the bariatric handbook and call with any questions. 1. Please call your doctor or come back to the emergency room should any new symptoms arise. 2. You will receive a courtesy call from [facility] 24-48 hours after discharge. 3. Activity: abstain from alcohol, practice limited stair climbing, no bending, no driving, no exercise, no illicit substances, no lifting, no sex, no tub bath, no work. 4. Diet: continue as discussed with Dr. Saldana. 5. Dressing Change/Wound Care: Do not change or remove surgical dressings unless they are wet or soiled. 6. Call your doctor if: - Your temperature exceeds 101.5 F - You experience excessive pain or swelling - You have an unexpected reaction to medication - You have excessive bleeding - You experience continued vomiting/nausea - Your incision begins to separate - Your incision shows signs of infection such as increased redness, swelling, excessive pain, heat, or drainage (light blood or clear fluid is normal) 7. General instructions: No lifting greater than 5 lbs for the next 4 weeks[address] driving within 24 hours of taking narcotic pain medications. If you do not move your bowels in the next 2 days, please take milk of magnesia over the counter. Please follow the post op diet and do not advance your diet until you are seen in the office in about 2 weeks. Please walk around your home every hour or two to prevent blood clots from forming in your legs. You do not need to wake from sleeping to walk. Please sleep in a bed or couch to prevent kinking at the hips and knees. Please take your incentive spirometer (your lung academic dean) home with you and use it for the next few days to prevent pneumonias. You may shower, no hot tubs, baths or swimming pools. Please call the office with any questions or concerns such as increasing abdominal pain, fever, chills, shortness of breath, chest pain, leg pain or swelling, or redness or drainage from your incisions. Do not hesitate to contact the office with any questions at [phone]. 8.Drain care. Empty and record drainage per Dr Saldana's instructions. Call immediately if drainage is cloudy, milky, greenish or increased in dark blood. The patient's medical history has been reviewed and due to history of afib kathe will use Arixtra until able to restart Pradaxa. The patient has not disclosed any travel plans during the first 30 days after surgery and they have been advised that within the first 30 days after surgery any bus, plane, train or car travel over 2 hours in duration is contraindicated due to the possibility of developing blood clots from immobility. Any travel, needs to include periods of ambulation of 10 minutes in duration every 2 hours. The patient was instructed to discuss any plans for travel during this period with their bariatric surgeon. Assessment: stable, post op gastric by pass and hiatal hernia repair Discharge Date/Time: 09/02/21 13:30
--- NOTE | 2021-09-01 14:17 | PM.PNGS ---
Subjective Subjective Date of Service: 09/02/21 Interval history: Patient has mild incisional pain, but was able to ambulate and use the incentive spirometer. Physical Exam Vital Signs: Vital Signs: Last Vital Signs Temp 97.1 F 09/01/21 13:46 Pulse 82 09/01/21 14:01 Resp 20 09/01/21 14:01 BP 125/82 09/01/21 14:01 Pulse Ox 94 09/01/21 14:01 BMI result Body Mass Index 39.7 GI: Inspection: Yes normal to inspection, Yes incision (clean, dry and intact), Yes obesity and Yes other (Otis with serosanguinous fluid) Extrem: Right lower extremity: normal to inspection (no calf tenderness) Left lower extremity: normal to inspection (no calf tenderness) Objective Data Active Medications Famotidine (Famotidine/Pf 20 Mg/2 Ml Vial) 20 mg IVPUSH BID [facility] Last Admin: 09/01/21 14:06 Dose: 20 mg Documented by: WARM Fentanyl (Fentanyl Citrate/Pf 100 Mcg/2 Ml Vial) 25 mcg IVPUSH Q5M PRN; Protocol PRN Reason: Pain, Moderate (Pain Scale 4-6 Hydromorphone HCl (Hydromorphone Hcl 0.5 Mg/0.5 Ml Syringe) 0.25 mg IVPUSH Q5M PRN; Protocol PRN Reason: Pain, Severe (Pain Scale 7-10) Lactated Ringer's (Lr) 1,000 mls @ 100 mls/hr IVCONT .Q10H [facility] Last Infusion: 09/01/21 14:03 Dose: 0 mls/hr Documented by: WARM Promethazine HCl 12.5 mg/ (Sodium Chloride) 50.5 mls @ 202 mls/hr IV ONCE PRN PRN Reason: Nausea and Vomiting Lactated Ringer's (Lr) 1,000 mls @ 150 mls/hr IVCONT .Q6H40M [facility] Last Admin: 09/01/21 14:04 Dose: 150 mls/hr Documented by: WARM Acetaminophen (Ofirmev) 1,000 mg in 100 mls @ 16.7 mls/hr IV .Q6H [facility] Labs CBC & Chem 7: 09/02/21 06:02 09/02/21 06:02 Labs: Laboratory Results - last 24 hr 09/01/21 09/01/21 06:24 11:06 POC Glucose 115 165 H Procedures Date of Service Date of Service: 09/02/21 Progress Note: A&P Assessment and plan (1) S/P gastric bypass: Status: Acute Assessment and Plan: s/p laparoscopic gastric bypass, lysis of adhesions repair of diaphragmatic hernia, and gastropexy Doing well Check am labs and UGI. If OK, will begin phase 1 bariatric diet? (2) History of repair of hiatal hernia: Status: Acute (3) Hiatal hernia: Status: Acute (4) Obesity: Status: Acute (5) BMI 39.0-39.9,adult: Status: Acute (6) Persistent atrial fibrillation: Status: Acute (7) Type 2 diabetes mellitus with unspecified complications: Status: Acute (8) Essential hypertension: Status: Acute (9) Major depressive disorder, recurrent, mild: Status: Acute (10) Herniated cervical disc: Status: Acute (11) Hypothyroidism: Status: Acute (12) Atrial fibrillation: Status: Acute (13) Hyperlipidemia: Status: Acute (14) Sleep apnea with use of continuous positive airway pressure (CPAP): Status: Acute (15) Hypertension: Status: Acute (16) Steatosis, liver: Status: Acute (17) Liver fibrosis: Status: Acute (18) Congenital intra-abdominal adhesions: Status: Acute (19) Cholelithiasis: Status: Acute Fall Risk Details Current Medications: Current Medications Famotidine (Famotidine/Pf 20 Mg/2 Ml Vial) 20 mg IVPUSH BID [facility] Last Admin: 09/01/21 14:06 Dose: 20 mg Documented by: Fentanyl (Fentanyl Citrate/Pf 100 Mcg/2 Ml Vial) 25 mcg IVPUSH Q5M PRN; Protocol PRN Reason: Pain, Moderate (Pain Scale 4-6 Hydromorphone HCl (Hydromorphone Hcl 0.5 Mg/0.5 Ml Syringe) 0.25 mg IVPUSH Q5M PRN; Protocol PRN Reason: Pain, Severe (Pain Scale 7-10) Lactated Ringer's (Lr) 1,000 mls @ 100 mls/hr IVCONT .Q10H [facility] Last Infusion: 09/01/21 14:03 Dose: Infused Documented by: Promethazine HCl 12.5 mg/ (Sodium Chloride) 50.5 mls @ 202 mls/hr IV ONCE PRN PRN Reason: Nausea and Vomiting Lactated Ringer's (Lr) 1,000 mls @ 150 mls/hr IVCONT .Q6H40M [facility] Last Admin: 09/01/21 14:04 Dose: 150 mls/hr Documented by: Acetaminophen (Ofirmev) 1,000 mg in 100 mls @ 16.7 mls/hr IV .Q6H [facility] Time Spent With Patient Time: Total time spent is greater than 50% in coordination of care (as documented) at patient's floor/unit and/or counseling patient: Quality Stroke Does the patient have a stroke diagnosis?: No VTE Prior VTE?: No VTE Risk Level:: Surgical - moderate VTE Device Contraindication: N/A - Device Ordered VTE Drug Contraindication: Treatment Not Indicated
[2021-09-01 14:49] LABS: Anion Gap 15 (12-20); Blood Urea Nitrogen 24 mg/dL (9-16); Calcium 9.3 mg/dL (8.4-10.2); Carbon Dioxide 19 mmol/L (22-29); Chloride 105 mmol/L (96-108); Creatinine Clr Calc Pharmacy 97.2; Estimated Glomerular Filt Rate > 60; Glucose Random 178 mg/dL (60-115); Sodium 134 mmol/L (135-145)
[2021-09-01] MEDS: Metoprolol Tartrate 5 MG in 0.9 % Sodium Chloride 50 ML 110 MG IV ×2 (15:31→21:11)
[2021-09-01] MEDS: ondansetron HCL 4 MG/2 ML VIAL IVPUSH ×2 (16:30→23:05)
[2021-09-01] MEDS: Sodium Chloride 0.45 % 1,000 ML 125 ML IVCONT ×2 (16:39→23:08)
[2021-09-01 17:26] LABS: Glucose, Whole Blood 158 mg/dL (60-115)
[2021-09-01 18:34] LABS: Glucose, Whole Blood 176 mg/dL (60-115)
[2021-09-01] MEDS: Insulin Lispro 100 UNIT/ML 3 ML VIAL SUBCUT ×2 (19:23→23:05)
[2021-09-01] MEDS: HYDROmorphone HCl 0.5 MG/0.5 ML SYRINGE 0.25 MG IVPUSH (19:39)
[2021-09-01 22:56] LABS: Glucose, Whole Blood 178 mg/dL (60-115)
[2021-09-02] MEDS: HYDROmorphone HCl 0.5 MG/0.5 ML SYRINGE 0.25 MG IVPUSH ×2 (01:05→05:39)
[2021-09-02 02:18] LABS: Glucose, Whole Blood 167 mg/dL (60-115)
[2021-09-02] MEDS: Insulin Lispro 100 UNIT/ML 3 ML VIAL SUBCUT (02:18)
[2021-09-02] MEDS: Metoprolol Tartrate 5 MG in 0.9 % Sodium Chloride 50 ML 110 MG IV ×2 (03:24→09:55)
[2021-09-02 04:00] VITALS: BP 139/73; PULSE 82; RESP 18; TEMP 36.2; O2SAT 96
[2021-09-02] MEDS: Sodium Chloride 0.45 % 1,000 ML 125 ML IVCONT (06:27)
[2021-09-02] MEDS: Levothyroxine Sodium 100 MCG VIAL 25 MCG IVPUSH (06:32)
[2021-09-02 06:35] LABS: Glucose, Whole Blood 135 mg/dL (60-115)
[2021-09-02 06:36] LABS: MANUAL DIFF FLAG NO
[2021-09-02 06:48] LABS: Basophils Percent Auto 0.1 % (0-2); Hematocrit 42.8 % (42.0-52.0); Hemoglobin 14.5 g/dl (14.0-18.0); Imm Gran Abs Auto 0.04 X10*3/uL (0.00-0.03); Imm Gran Pct Auto 0.4 % (0.0-0.4); Lymphocytes Absolute Auto 0.8 X10*3/uL (1.2-4.9); Lymphocytes Percent Auto 7.9 % (20-40); Mean Corpuscular HGB Conc 33.9 g/dl (31.0-36.0); Mean Corpuscular Hemoglobin 30.7 pg (27.0-33.0); Mean Corpuscular Volume 90.7 fL (80.0-98.0); Mean Platelet Volume 10.1 fL (9.4-12.4); Monocytes Absolute Auto 0.8 X10*3/uL (0.1-1.2); Monocytes Percent Auto 7.7 % (2-11); Neutrophils Absolute Auto 8.4 x10*3/uL (2.0-8.3); Neutrophils Percent Auto 83.9 % (45-73); Platelet Count 212 X10*3/uL (160-400); Red Blood Count 4.72 X10*6/uL (4.60-5.80); Red Cell Distribution Width 13.1 % (11.0-16.0)
[2021-09-02 07:07] LABS: Anion Gap 15 (12-20); Blood Urea Nitrogen 19 mg/dL (9-16); Calcium 9.2 mg/dL (8.4-10.2); Carbon Dioxide 18 mmol/L (22-29); Chloride 107 mmol/L (96-108); Creatinine Clr Calc Pharmacy 126.5; Estimated Glomerular Filt Rate > 60; Glucose Random 127 mg/dL (60-115); Potassium 4.3 mmol/L (3.3-5.1); Sodium 136 mmol/L (135-145)
[2021-09-02] MEDS: ondansetron HCL 4 MG/2 ML VIAL IVPUSH (07:17)
[2021-09-02 07:33] VITALS: BP 143/74; PULSE 65; RESP 18; TEMP 36.9; O2SAT 95
[2021-09-02 07:45] LABS: Glucose, Whole Blood 128 mg/dL (60-115)
--- NOTE | 2021-09-02 08:51 | MHC.CM.PN ---
CM ATTEMPTED TO MEET W/PT AT 8:30AM HOWEVER PT OFF UNIT IN RADIOLOGY, THIS CM REATTEMTED AT 8:50AM AND PT REMAINS OFF UNIT, CM TO REVISIT
--- NOTE | 2021-09-02 09:13 | HO.POSTANES ---
Post Anesthesia Evaluation Post Anesthesia Evaluation Vital Signs: Vital Signs Temp Pulse Resp BP Pulse Ox 09/02/21 07:33 98.4 F 65 18 143/74 H 95 09/02/21 04:00 97.2 F 82 18 139/73 96 09/01/21 23:57 97.8 F 69 18 148/82 H 95 Anesthesia: General Endotracheal-GETA Mental Status: Awake Pain Control: Satisfactory Nausea/Vomiting: None Hydration: Adequate Anesthesia-Related Issues: No Anes. Related Issues
[2021-09-02] MEDS: 0.9 % Sodium Chloride Flush 3 ML SYRINGE IVFLUSH (09:55)
[2021-09-02] MEDS: Famotidine/PF 20 MG/2 ML VIAL IVPUSH (09:55)
[2021-09-02 11:04] VITALS: BP 158/87; PULSE 74; RESP 18; TEMP 36.8; O2SAT 94
[2021-09-02 11:14] LABS: Glucose, Whole Blood 124 mg/dL (60-115)
[2021-09-02] MEDS: VerapamiL HCL SR 240 MG TABLET.ER PO (11:21)
--- NOTE | 2021-09-02 12:22 | PC.NURSE ---
Pt estrada dcd this morning [id number]. Pt has voided 600ml post catheter removal. Tolerating phase 1 bariatric diet. Ambulates independently often in room. Denies pain, N/V Awaiting discharge
--- NOTE | 2021-09-02 13:46 | MHC.CM.PN ---
EMR REVIEWED, PT ADMITTED S/P JOHN-INDRA GASTRIC BYPASS AND HERNIA REPAIR, CM MET W/PT AND DOMENIC WHO WAS BEDSIDE, PT REPORTS SHE IS INDEP W/ALL CARE, PT USES A CPAP, GLUCOMETER AND ELECTRONIC BP CUFF FOR DME AND HAS NO HOME SERVICES, PT VERIFIES PCP IS PHYLLIS FREY, HAS HAD [facility] VACCINE X3 AND HAS BEEN EDUCATED ON AND COMPLETED A HCP NAMING HIS TREY MANZANO [phone] HIS HEALTH CARE AGENT, NO ALTERNATE CHOSEN AT THIS TIME. D/C PLAN: HOME SELF-CARE W/OUPT FOLLOW-UP, FAMILY FOR TRANSPORT
== END 2021-09-02 13:30 | disposition home or self-care (01) | DRG 403 ==
LOC: HO.SSSA 06:14 → HO.S3 11:14
PROVIDERS: Physician Assistant; Physician Assistant Surgical; Admitting Provider Surgery; PCP Physician Assistant; Visit Provider Surgery
PROC: 0DB64Z3 Excision of Stomach, Percutaneous Endoscopic Approach, Vertical (ICD-10-PCS; principal; 2021-09-01 07:30)
DX: E66.01 Morbid (severe) obesity due to excess calories (principal); K74.00 Hepatic fibrosis, unspecified; K44.0 Diaphragmatic hernia with obstruction, without gangrene; E10.9 Type 1 diabetes mellitus without complications; E78.5 Hyperlipidemia, unspecified; I10 Essential (primary) hypertension; I48.91 Unspecified atrial fibrillation; G47.33 Obstructive sleep apnea (adult) (pediatric); K21.9 Gastro-esophageal reflux disease without esophagitis; K66.0 Peritoneal adhesions (postprocedural) (postinfection); Z68.39 Body mass index [BMI] 39.0-39.9, adult; Z99.89 Dependence on other enabling machines and devices; K76.0 Fatty (change of) liver, not elsewhere classified; Z79.4 Long term (current) use of insulin; Z79.84 Long term (current) use of oral hypoglycemic drugs; Z79.890 Hormone replacement therapy; Z79.899 Other long term (current) drug therapy
CPT/HCPCS: 36415; 74240; 80048; 80053; 80061; 82947; 83036; 83525; 84443; 85014; 85018; 85025; 85610; 85730; 86140; 86850; 86900; 86901; 87635; 88302; 99024; C1758; J0131; J0690; J1100; J1170; J2250; J2405; J3010

== ENCOUNTER → 2021-09-06 14:20 | Outpatient (BNVA) | payer OTHER, SELFPAY | PROVIDERS: PCP Physician Assistant; Referring Provider Physician Assistant; Visit Provider Surgery | DX: E66.01 Morbid (severe) obesity due to excess calories (principal); Z68.41 Body mass index [BMI] 40.0-44.9, adult; Z71.3 Dietary counseling and surveillance | CPT/HCPCS: 99212 ==

== ENCOUNTER → 2021-09-13 14:02 | Outpatient (BNVA) | payer OTHER, SELFPAY | PROVIDERS: PCP Physician Assistant; Referring Provider Physician Assistant; Visit Provider Nurse Practitioner Family | DX: Z13.89 Encounter for screening for other disorder (principal) ==

== ENCOUNTER 2021-09-17 09:12 | Outpatient (REF) | payer OTHER, SELFPAY ==
[2021-09-17 09:56] LABS: Hematocrit 43.6 % (42.0-52.0); Hemoglobin 15.2 g/dl (14.0-18.0); Mean Corpuscular HGB Conc 34.9 g/dl (31.0-36.0); Mean Corpuscular Hemoglobin 31.3 pg (27.0-33.0); Mean Corpuscular Volume 89.7 fL (80.0-98.0); Mean Platelet Volume 10.5 fL (9.4-12.4); Platelet Count 228 X10*3/uL (160-400); Red Blood Count 4.86 X10*6/uL (4.60-5.80); Red Cell Distribution Width 13.1 % (11.0-16.0); White Blood Count 6.5 X10*3/uL (4.8-10.8)
[2021-09-17 10:28] LABS: Alanine Aminotransferase 34 U/L (0-40); Albumin Level 4.2 g/dL (3.5-5.0); Alkaline Phosphatase 88 U/L (39-117); Anion Gap 15 (12-20); Aspartate Amino Transferase 23 U/L (5-37); Bilirubin Total 0.8 mg/dL (0.0-1.0); Blood Urea Nitrogen 21 mg/dL (9-16); Calcium 9.7 mg/dL (8.4-10.2); Carbon Dioxide 25 mmol/L (22-29); Chloride 102 mmol/L (96-108); Cholesterol 142 mg/dL; Estimated Glomerular Filt Rate > 60; Glucose Fasting 147 mg/dL (60-99); HDL Cholesterol 34 mg/dL; LDL Cholesterol Calculated 86 mg/dl; Potassium 3.1 mmol/L (3.3-5.1); Sodium 139 mmol/L (135-145); Total Protein 6.6 g/dL (6.5-8.0); Triglycerides 112 mg/dL
[2021-09-17 10:51] LABS: Estimated Average Glucose 128 mg/dL; Hemoglobin A1c % 6.1 %
[2021-09-17 10:52] LABS: Prostate Specific Antigen Scr 0.55 ng/mL (<0.05-4.0); TSH reflex Free T4 2.22 uIU/mL (0.32-4.0)
== END 2021-09-17 09:13 | disposition home or self-care (01) ==
LOC: HO.LAB 09:12
PROVIDERS: PCP Physician Assistant; Visit Provider Physician Assistant
DX: E10.9 Type 1 diabetes mellitus without complications (principal); E78.2 Mixed hyperlipidemia; Z12.5 Encounter for screening for malignant neoplasm of prostate
CPT/HCPCS: 36415; 80053; 80061; 83036; 84153; 84443; 85027

== ENCOUNTER 2021-09-19 11:28 | Outpatient (REF) | payer OTHER, SELFPAY ==
[2021-09-19 12:49] LABS: Creatinine Urine 117.37 mg/dL; Microalbum/Creatinine Ratio Ur 47.7 ug/mg cr
== END 2021-09-19 11:29 | disposition home or self-care (01) ==
LOC: HO.LNP 11:28
PROVIDERS: Visit Provider Physician Assistant
DX: E10.9 Type 1 diabetes mellitus without complications (principal)
CPT/HCPCS: 82043

== ENCOUNTER 2021-09-20 12:19 | Outpatient (REF) | payer OTHER, SELFPAY ==
[2021-09-20 13:44] LABS: Anion Gap 16 (12-20); Carbon Dioxide 22 mmol/L (22-29); Chloride 100 mmol/L (96-108); Potassium 3.1 mmol/L (3.3-5.1); Sodium 135 mmol/L (135-145)
== END 2021-09-20 12:20 | disposition home or self-care (01) ==
LOC: HO.LAB 12:19
PROVIDERS: PCP Physician Assistant; Visit Provider Physician Assistant
DX: E87.6 Hypokalemia (principal)
CPT/HCPCS: 36415; 80051

== ENCOUNTER 2021-09-21 12:32 | Outpatient (REF) | payer OTHER, SELFPAY ==
[2021-09-21 13:39] LABS: Anion Gap 16 (12-20); Carbon Dioxide 22 mmol/L (22-29); Chloride 100 mmol/L (96-108); Potassium 2.9 mmol/L (3.3-5.1); Sodium 135 mmol/L (135-145)
== END 2021-09-21 12:33 | disposition home or self-care (01) ==
LOC: HO.LAB 12:32
PROVIDERS: PCP Physician Assistant; Visit Provider Physician Assistant
DX: E87.6 Hypokalemia (principal)
CPT/HCPCS: 36415; 80051

== ENCOUNTER 2021-09-28 16:01 | Outpatient (REF) | payer OTHER, SELFPAY ==
[2021-09-28 17:13] LABS: Anion Gap 16 (12-20); Carbon Dioxide 22 mmol/L (22-29); Chloride 102 mmol/L (96-108); Potassium 3.3 mmol/L (3.3-5.1); Sodium 137 mmol/L (135-145)
== END 2021-09-28 16:02 | disposition home or self-care (01) ==
LOC: HO.LAB 16:01
PROVIDERS: PCP Physician Assistant; Visit Provider Physician Assistant
DX: E87.6 Hypokalemia (principal)
CPT/HCPCS: 36415; 80051

== ENCOUNTER → 2021-10-10 08:23 | Outpatient (BNVA) | payer OTHER, SELFPAY | PROVIDERS: PCP Physician Assistant; Visit Provider Physician Assistant | DX: E66.01 Morbid (severe) obesity due to excess calories (principal); Z98.84 Bariatric surgery status; Z68.35 Body mass index [BMI] 35.0-35.9, adult | CPT/HCPCS: 99212 ==

== ENCOUNTER → 2021-11-03 16:00 | Outpatient (BNVA) | payer OTHER, SELFPAY | PROVIDERS: PCP Physician Assistant; Visit Provider Physician Assistant | DX: E66.9 Obesity, unspecified (principal); K59.00 Constipation, unspecified; E11.8 Type 2 diabetes mellitus with unspecified complications; Z98.84 Bariatric surgery status; Z68.33 Body mass index [BMI] 33.0-33.9, adult | CPT/HCPCS: 99212 ==

== ENCOUNTER → 2021-11-22 10:14 | Outpatient (REF) | payer OTHER, SELFPAY ==
[2021-11-22 11:51] LABS: Hematocrit 41.4 % (42.0-52.0); Mean Corpuscular HGB Conc 33.8 g/dl (31.0-36.0); Mean Corpuscular Hemoglobin 30.8 pg (27.0-33.0); Mean Corpuscular Volume 91.2 fL (80.0-98.0); Mean Platelet Volume 11.1 fL (9.4-12.4); Platelet Count 227 X10*3/uL (160-400); Red Blood Count 4.54 X10*6/uL (4.60-5.80); Red Cell Distribution Width 14.4 % (11.0-16.0); White Blood Count 5.7 X10*3/uL (4.8-10.8)
[2021-11-22 11:55] LABS: Alanine Aminotransferase 30 U/L (0-40); Albumin Level 4.2 g/dL (3.5-5.0); Alkaline Phosphatase 91 U/L (39-117); Anion Gap 10 (12-20); Aspartate Amino Transferase 21 U/L (5-37); Bilirubin Total 0.7 mg/dL (0.0-1.0); Blood Urea Nitrogen 15 mg/dL (9-16); Calcium 9.5 mg/dL (8.4-10.2); Carbon Dioxide 27 mmol/L (22-29); Chloride 105 mmol/L (96-108); Cholesterol 127 mg/dL; Estimated Glomerular Filt Rate > 60; Glucose Fasting 106 mg/dL (60-99); HDL Cholesterol 41 mg/dL; LDL Cholesterol Calculated 72 mg/dl; Potassium 3.9 mmol/L (3.3-5.1); Sodium 138 mmol/L (135-145); Total Protein 6.6 g/dL (6.5-8.0); Triglycerides 71 mg/dL
[2021-11-22 11:56] LABS: Estimated Average Glucose 117 mg/dL; Hemoglobin A1C 142.9955 umol/L; Hemoglobin A1c % 5.7 %
[2021-11-22 12:18] LABS: TSH reflex Free T4 1.73 uIU/mL (0.32-4.0)
[2021-11-22 12:28] LABS: Creatinine Urine 43.45 mg/dL; Microalbum/Creatinine Ratio Ur 110.4 ug/mg cr
== END ==
LOC: HO.SL 10:14
PROVIDERS: PCP Physician Assistant; Visit Provider Physician Assistant
DX: G47.33 Obstructive sleep apnea (adult) (pediatric) (principal); E11.8 Type 2 diabetes mellitus with unspecified complications; I10 Essential (primary) hypertension; E03.9 Hypothyroidism, unspecified; E78.2 Mixed hyperlipidemia
CPT/HCPCS: 36415; 80053; 80061; 82043; 83036; 84443; 85027; 95806

== ENCOUNTER → 2021-12-22 10:00 | Outpatient (BNVA) | payer OTHER, SELFPAY | PROVIDERS: PCP Physician Assistant; Visit Provider Counselor Mental Health | DX: F43.22 Adjustment disorder with anxiety (principal); Z98.84 Bariatric surgery status | CPT/HCPCS: 90834 ==

== ENCOUNTER → 2021-12-29 12:00 | Outpatient (BNVA) | payer OTHER, SELFPAY | PROVIDERS: PCP Physician Assistant; Visit Provider Counselor Mental Health | DX: F43.22 Adjustment disorder with anxiety (principal); Z98.84 Bariatric surgery status | CPT/HCPCS: 90832 ==

== ENCOUNTER 2022-07-01 07:25 | Outpatient (REF) | payer OTHER, SELFPAY ==
[2022-07-01 07:43] LABS: MANUAL DIFF FLAG NO
[2022-07-01 07:45] LABS: Basophils Percent Auto 0.5 % (0-2); Eosinophils Absolute Auto 0.2 X10*3/uL (0.0-0.4); Eosinophils Percent Auto 3.1 % (0-4); Hematocrit 42.4 % (42.0-52.0); Hemoglobin 14.6 g/dl (14.0-18.0); Imm Gran Abs Auto 0.03 X10*3/uL (0.00-0.03); Imm Gran Pct Auto 0.5 % (0.0-0.4); Lymphocytes Absolute Auto 1.7 X10*3/uL (1.2-4.9); Lymphocytes Percent Auto 29.8 % (20-40); Mean Corpuscular HGB Conc 34.4 g/dl (31.0-36.0); Mean Corpuscular Hemoglobin 30.5 pg (27.0-33.0); Mean Corpuscular Volume 88.7 fL (80.0-98.0); Mean Platelet Volume 9.6 fL (9.4-12.4); Monocytes Absolute Auto 0.4 X10*3/uL (0.1-1.2); Monocytes Percent Auto 7.2 % (2-11); Neutrophils Absolute Auto 3.3 x10*3/uL (2.0-8.3); Neutrophils Percent Auto 58.9 % (45-73); Platelet Count 188 X10*3/uL (160-400); Red Blood Count 4.78 X10*6/uL (4.60-5.80); Red Cell Distribution Width 13.1 % (11.0-16.0); White Blood Count 5.5 X10*3/uL (4.8-10.8)
[2022-07-01 07:55] LABS: Estimated Average Glucose 111 mg/dL; Hemoglobin A1c % 5.5 %
[2022-07-01 08:58] LABS: Alanine Aminotransferase 47 U/L (0-40); Albumin Level 4.1 g/dL (3.5-5.0); Alkaline Phosphatase 107 U/L (39-117); Anion Gap 12 (12-20); Aspartate Amino Transferase 33 U/L (5-37); Bilirubin Total 0.8 mg/dL (0.0-1.0); Blood Urea Nitrogen 22 mg/dL (9-16); C Reactive Protein < 0.10 mg/dL (< or = 0.50); Calcium 9.6 mg/dL (8.4-10.2); Carbon Dioxide 27 mmol/L (22-29); Chloride 104 mmol/L (96-108); Cholesterol 136 mg/dL; Estimated Glomerular Filt Rate > 60; Glucose Random 96 mg/dL (60-115); HDL Cholesterol 57 mg/dL; Iron 105 mcg/dL (45-160); LDL Cholesterol Calculated 66 mg/dl; Percent Iron Saturation 36 % (15-50); Sodium 139 mmol/L (135-145); Total Iron Binding Capacity 288 mcg/dL (228-428); Total Protein 6.3 g/dL (6.5-8.0); Triglycerides 66 mg/dL; Unsaturated Iron Binding 183 ug/dL
[2022-07-01 09:17] LABS: Ferritin 90 ng/mL (20-250); Folate 8.6 ng/mL (> or = 4.0); Insulin 4 uU/mL (2-29); TSH reflex Free T4 2.52 uIU/mL (0.32-4.0); Vitamin B12 808 pg/mL (200-900)
[2022-07-03 16:29] LABS: Calcium (PTHI) 9.8 mg/dL (8.6-10.3); PTHI 58 pg/mL (16-77)
[2022-07-04 16:44] LABS: Zinc 66 mcg/dL (60-130)
[2022-07-05 09:24] LABS: Vitamin A 60 mcg/dL (38-98)
[2022-07-05 16:08] LABS: Vitamin B1 17 nmol/L (8-30)
== END 2022-07-01 07:26 | disposition home or self-care (01) ==
LOC: HO.LAB 07:25
PROVIDERS: Physician Assistant; PCP Physician Assistant; Visit Provider Internal Medicine
DX: E66.09 Other obesity due to excess calories (principal); Z68.32 Body mass index [BMI] 32.0-32.9, adult; Z98.84 Bariatric surgery status
CPT/HCPCS: 36415; 80053; 80061; 82306; 82607; 82728; 82746; 83036; 83525; 83540; 83970; 84425; 84443; 84590; 84630; 85025; 86140

== ENCOUNTER → 2022-07-11 11:43 | Outpatient (BNVA) | payer OTHER, SELFPAY | PROVIDERS: PCP Physician Assistant; Visit Provider Physician Assistant Surgical | DX: E66.3 Overweight (principal); Z68.29 Body mass index [BMI] 29.0-29.9, adult; Z98.84 Bariatric surgery status | CPT/HCPCS: 99212 ==

== ENCOUNTER 2022-10-02 07:04 | Outpatient (REF) | payer OTHER, SELFPAY ==
[2022-10-02 07:28] LABS: MANUAL DIFF FLAG NO
[2022-10-02 08:02] LABS: Basophils Absolute Auto 0.1 X10*3/uL (0.0-0.2); Basophils Percent Auto 0.8 % (0-2); Eosinophils Absolute Auto 0.2 X10*3/uL (0.0-0.4); Eosinophils Percent Auto 2.9 % (0-4); Hematocrit 43.9 % (42.0-52.0); Hemoglobin 15.3 g/dl (14.0-18.0); Imm Gran Abs Auto 0.06 X10*3/uL (0.00-0.03); Lymphocytes Absolute Auto 1.7 X10*3/uL (1.2-4.9); Lymphocytes Percent Auto 27.2 % (20-40); Mean Corpuscular HGB Conc 34.9 g/dl (31.0-36.0); Mean Corpuscular Hemoglobin 31.4 pg (27.0-33.0); Mean Corpuscular Volume 90.1 fL (80.0-98.0); Mean Platelet Volume 9.9 fL (9.4-12.4); Monocytes Absolute Auto 0.5 X10*3/uL (0.1-1.2); Monocytes Percent Auto 8.6 % (2-11); Neutrophils Absolute Auto 3.7 x10*3/uL (2.0-8.3); Neutrophils Percent Auto 59.5 % (45-73); Platelet Count 221 X10*3/uL (160-400); Red Blood Count 4.87 X10*6/uL (4.60-5.80); Red Cell Distribution Width 13.1 % (11.0-16.0); White Blood Count 6.1 X10*3/uL (4.8-10.8)
[2022-10-02 08:10] LABS: Estimated Average Glucose 126 mg/dL
[2022-10-02 08:12] LABS: Estimated Average Glucose 126 mg/dL
[2022-10-02 08:39] LABS: Alanine Aminotransferase 45 U/L (0-40); Alkaline Phosphatase 114 U/L (39-117); Anion Gap 12 (12-20); Aspartate Amino Transferase 34 U/L (5-37); Bilirubin Total 0.8 mg/dL (0.0-1.0); Blood Urea Nitrogen 17 mg/dL (9-16); Calcium 9.5 mg/dL (8.4-10.2); Carbon Dioxide 26 mmol/L (22-29); Chloride 107 mmol/L (96-108); Cholesterol 134 mg/dL; Estimated Glomerular Filt Rate > 60; Glucose Fasting 115 mg/dL (60-99); HDL Cholesterol 51 mg/dL; LDL Cholesterol Calculated 69 mg/dl; Potassium 4.4 mmol/L (3.3-5.1); Sodium 141 mmol/L (135-145); Total Protein 6.3 g/dL (6.5-8.0); Triglycerides 73 mg/dL
[2022-10-02 08:49] LABS: Alanine Aminotransferase 45 U/L (0-40); Alkaline Phosphatase 114 U/L (39-117); Anion Gap 12 (12-20); Aspartate Amino Transferase 34 U/L (5-37); Bilirubin Total 0.7 mg/dL (0.0-1.0); Blood Urea Nitrogen 17 mg/dL (9-16); Calcium 9.5 mg/dL (8.4-10.2); Carbon Dioxide 27 mmol/L (22-29); Chloride 107 mmol/L (96-108); Cholesterol 134 mg/dL; Estimated Glomerular Filt Rate > 60; Ferritin 112 ng/mL (20-250); Glucose Random 115 mg/dL (60-115); HDL Cholesterol 51 mg/dL; Insulin 5 uU/mL (2-29); Iron 95 mcg/dL (45-160); LDL Cholesterol Calculated 69 mg/dl; Percent Iron Saturation 33 % (15-50); Potassium 4.5 mmol/L (3.3-5.1); Sodium 141 mmol/L (135-145); TSH reflex Free T4 1.93 uIU/mL (0.32-4.0); Total Iron Binding Capacity 290 mcg/dL (228-428); Total Protein 6.4 g/dL (6.5-8.0); Triglycerides 73 mg/dL; Unsaturated Iron Binding 195 ug/dL
[2022-10-02 08:52] LABS: Appearance Urine Clear; Color Urine Yellow; Glucose Urine UA Negative (Negative); Leukocyte Esterase Urine Negative (Negative); Nitrite Urine Negative (Negative); Specific Gravity - Urine 1.015 (1.005-1.025); UMIC TRIGGER UA YES; Urine Blood Negative (Negative); Urine Ketones Negative (Negative); Urine Protein 30 (1+) mg/dL (Neg-Trace)
[2022-10-02 08:55] LABS: Free T4 (Free Thyroxine) 1.08 ng/dL (0.71-1.85); Thyroid Stimulating Hormone 1.87 uIU/mL (0.32-4.0)
[2022-10-02 08:58] LABS: Bacteria Urine None Seen (None Seen); Hyaline Casts Urine 0-2 /LPF (0-2); RBC Urine 0-2 /HPF (0-2); Squamous Epithelial Cell Urine 0-2 /HPF (0-2); WBC Urine 0-5 /HPF (0-5)
[2022-10-02 09:04] LABS: Folate 13.4 ng/mL (> or = 4.0); TSH reflex Free T4 1.85 uIU/mL (0.32-4.0); Vitamin B12 1258 pg/mL (200-900)
[2022-10-02 09:13] LABS: Creatinine Urine 62.87 mg/dL; Microalbum/Creatinine Ratio Ur 240.1 ug/mg cr
[2022-10-04 14:28] LABS: Calcium (PTHI) 9.6 mg/dL (8.6-10.3); PTHI 55 pg/mL (16-77)
[2022-10-06 01:38] LABS: Zinc 76 mcg/dL (60-130)
[2022-10-06 06:04] LABS: Vitamin A 54 mcg/dL (38-98)
[2022-10-08 17:24] LABS: Vitamin B1 18 nmol/L (8-30)
== END 2022-10-02 07:05 | disposition home or self-care (01) ==
LOC: HO.LAB 07:04
PROVIDERS: Physician Assistant; PCP Internal Medicine; Visit Provider Physician Assistant Surgical
DX: E66.09 Other obesity due to excess calories (principal); Z68.32 Body mass index [BMI] 32.0-32.9, adult; E78.00 Pure hypercholesterolemia, unspecified; R30.0 Dysuria; E03.9 Hypothyroidism, unspecified; E11.9 Type 2 diabetes mellitus without complications; E55.9 Vitamin D deficiency, unspecified; L98.7 Excessive and redundant skin and subcutaneous tissue; Z98.84 Bariatric surgery status
CPT/HCPCS: 36415; 80053; 80061; 81001; 81003; 82043; 82306; 82607; 82728; 82746; 83036; 83525; 83540; 83970; 84425; 84439; 84443; 84590; 84630; 85025; 86140; 99212

== ENCOUNTER 2022-11-16 08:23 | Outpatient (REF) | payer OTHER, SELFPAY ==
--- NOTE | ~2022-11-16 | FL_ITS ---
EXAMINATION: XR FLUOROSCOPY UPPER GI WITH AIR CLINICAL INFORMATION: Bariatric surgery status. COMPARISON: 09/02/2021 and 07/19/2021. TECHNIQUE: Air-contrast upper GI examination. FINDINGS: There is normal apposition of the vocal cords while saying E. There is normal elevation of the soft palate while saying candy. Patient swallowed thin and thick barium and half-inch diameter barium tablet without difficulty. There is no evidence of nasopharyngeal reflux or tracheal aspiration. No Zenker's diverticulum was identified. No significant cricopharyngeal hypertrophy. There was normal esophageal motility with minimal gastroesophageal reflux which cleared rapidly while patient was turning on the table however, this did not happen any other time during the procedure and could not be reproduced with water siphon test. There is a small hiatal hernia present. No esophageal mucosal abnormality appreciated. Patient status post gastric bypass surgery with anastomosis to small bowel appearing unremarkable. There is rapid gastric emptying. No ulceration at the anastomosis is seen. No abnormal mass is seen at the anastomosis. No extravasation of contrast is noted. FLUOROSCOPY TIME: 2.1 minutes. DOSE AREA PRODUCT: 26.222 Gy-cm2 (bowman-centimeter squared) 24 images FL/FL upper GI w air IMPRESSION: Small hiatal hernia with one episode of mild transient gastroesophageal reflux within the distal third of the esophagus. No significant abnormality appreciated with gastric bypass.
[2022-11-16 08:39] LABS: MANUAL DIFF FLAG NO
[2022-11-16 09:16] LABS: Basophils Percent Auto 0.7 % (0-2); Eosinophils Absolute Auto 0.2 X10*3/uL (0.0-0.4); Eosinophils Percent Auto 2.6 % (0-4); Hematocrit 43.3 % (42.0-52.0); Hemoglobin 14.8 g/dl (14.0-18.0); Imm Gran Abs Auto 0.03 X10*3/uL (0.00-0.03); Imm Gran Pct Auto 0.5 % (0.0-0.4); Lymphocytes Absolute Auto 1.7 X10*3/uL (1.2-4.9); Lymphocytes Percent Auto 28.5 % (20-40); Mean Corpuscular HGB Conc 34.2 g/dl (31.0-36.0); Mean Corpuscular Hemoglobin 31.6 pg (27.0-33.0); Mean Corpuscular Volume 92.5 fL (80.0-98.0); Mean Platelet Volume 10.4 fL (9.4-12.4); Monocytes Absolute Auto 0.6 X10*3/uL (0.1-1.2); Monocytes Percent Auto 9.1 % (2-11); Neutrophils Absolute Auto 3.6 x10*3/uL (2.0-8.3); Neutrophils Percent Auto 58.6 % (45-73); Platelet Count 201 X10*3/uL (160-400); Red Blood Count 4.68 X10*6/uL (4.60-5.80); White Blood Count 6.1 X10*3/uL (4.8-10.8)
[2022-11-16 10:34] LABS: TSH reflex Free T4 2.29 uIU/mL (0.32-4.0)
== END 2022-11-16 08:24 | disposition home or self-care (01) ==
LOC: HO.XRAY 08:23
PROVIDERS: PCP Internal Medicine; Visit Provider Physician Assistant
DX: Z98.84 Bariatric surgery status (principal); I10 Essential (primary) hypertension; E03.9 Hypothyroidism, unspecified
CPT/HCPCS: 36415; 74246; 84443; 85025

== ENCOUNTER → 2022-11-29 11:18 | Outpatient (BNVA) | payer OTHER, SELFPAY | PROVIDERS: PCP Internal Medicine; Visit Provider Physician Assistant Surgical | DX: Z98.84 Bariatric surgery status (principal) ==

== ENCOUNTER 2023-02-20 14:04 | Outpatient (AMB) | payer OTHER, SELFPAY ==
--- NOTE | 2023-02-20 13:43 | MHC.OFFVISWM ---
Intake VS Expanded 02/20/23 13:45 Height 6 ft Weight 221 lb 10 oz BMI 30.1 Intake Visit Reasons: VIDEO PO GBP 09/01/21 Allergies No Known Allergies Allergy (Verified 10/17/22 14:21) Medication List - Last Reconciled 02/20/23 by DESIRAE García apixaban 5 mg PO BID 90 days calcium citrate-vitamin D3 315 mg-5 mcg (200 unit) (Calcium Citrate + D) 1 tab PO BID clotrimazole 1% 1 appl topical BID enoxaparin (Lovenox) 100 mg subcut Q12H 5 days flash glucose scanning reader (FreeStyle Manda 2 [place]) As directed flash glucose sensor (FreeStyle Manda 14 Day Sensor kit) As directed - covering for Branden Del Cid hydrochlorothiazide 25 mg PO DAILY 90 days metformin 500 mg PO DAILY 90 days metoprolol succinate ER 100 mg PO DAILY 90 days dlgudcjtcchh-wno-mwha-FA-vit K 45 mg iron- 800 mcg-120 mcg (Bariatric Multivitamins) caps PO Synthroid (levothyroxine) 25 mcg PO DAILY 90 days NS verapamil ER 240 mg PO DAILY 90 days HPI HPI Comments History of Present Illness Details This?is a?57?yo male who is s/p RYGB 09/01/2021. Presents for 18 month post op visit. Weight at last visit on 11/29/2022 was 222.8 pounds; weight today is 221.7 pounds, representing a 1.1 pound weight loss with a BMI today of 30.1.? No complaints of nausea, emesis, abdominal pain or reflux, or constipation. BP remains well controlled. However his HgbA1C has slowly increased a bit to 6.3. He thinks he is experiencing blood sugar fluctuations which sound like postprandial hypoglycemia. Added 500mg metformin after breakfast to help control this based on PCP's recs. Has a CGM. Has an appointment with [facility] for April to discuss skin removal surgery. Present meal plan includes: Either one meal and two shakes a day, or two meals and two shakes a day tries to avoid carbs Exercise: walks 3x/week 4 miles (60-75 min) perez walking has stopped weight training [facility] Medical History Atrial fibrillation BMI 39.0-39.9,adult Cholelithiasis Colon cancer screening Congenital intra-abdominal adhesions COVID-19 vaccine series completed Diabetes mellitus Exposure to COVID-19 virus Herniated cervical disc Hyperlipidemia Hypertension Hypothyroidism Insulin dependent type 1 diabetes mellitus Liver fibrosis Major depressive disorder, recurrent, mild Morbid obesity Obesity Persistent atrial fibrillation Preoperative cardiovascular examination Sleep apnea with use of continuous positive airway pressure (CPAP) Steatosis, liver Verruca Vitamin B1 deficiency Surgical History History of cardioversion History of repair of hiatal hernia S/P gastric bypass Family History Father Afib CVA (cerebral vascular accident) Mother CVA (cerebral vascular accident) Afib Social History Household Members Other:: Housing: Condominium Are you a primary care program director to a significant other at home: No Do you presently have visiting nurse or other home services: No Alcohol intake: current Alcohol intake frequency: does not drink Patient Tobacco Use Status: Never used Tobacco e-Cigarette/Vaping Use: Never Used Second Hand Smoke Exposure: No service: No Current occupational status: unemployed Current occupation: Medical Insurance Cognitive needs: No Hearing needs: No Vision needs: Yes Assessment & Plan Assessment & Plan (1) Diabetes mellitus: Code(s): E11.9 - Type 2 diabetes mellitus without complications Qualifiers: Diabetes mellitus type: type 2 Diabetes mellitus snf insulin use: without truck terminal manager use Diabetes mellitus complication status: without complication Qualified Code(s): E11.9 - Type 2 diabetes mellitus without complications (2) Excess skin: Code(s): L98.7 - Excessive and redundant skin and subcutaneous tissue (3) Obesity: Code(s): E66.9 - Obesity, unspecified Qualifiers: Obesity type: due to excess calories Obesity classification: adult class 1 (BMI 30 - 34.9) Serious obesity comorbidity presence: with serious comorbidity Body mass index: BMI 32.0-32.9 Qualified Code(s): E66.09 - Other obesity due to excess calories; Z68.32 - Body mass index [BMI] 32.0-32.9, adult (4) S/P gastric bypass: Comment: 09/01/21 Code(s): Z98.84 - Bariatric surgery status (5) Hiatal hernia: Code(s): K44.9 - Diaphragmatic hernia without obstruction or gangrene (6) Essential hypertension: Code(s): I10 - Essential (primary) hypertension Plan Will have pt meet with RD to discuss a possible meal plan to address reactive hypoglycemia. This may also help with his stalled weight loss. He will continue to monitor glucose levels and can share them with Halley at his visit with her. We reviewed UGI results as pt is concerned that his pouch has stretched. Reviewed max 6oz total volume of meals. Remainder of labs reviewed, sent by pt via email. Patient is obese and is not considered stable at this time. I spent a total of [] minutes reviewing/updating records, examining the patient and counseling the patient on weight management as detailed above. Telehealth Telehealth Location of provider rendering services: practice address Location of patient: other Patient Identification confirmed using: Name, : Yes Telehealth method: video Patient verbally consented to treatment: Yes Patient verbally consented to billing insurance company: Yes Patient informed of any privacy concerns related to visit: Yes Coding Level of Care Code Tele Est Pt Level 4 (55312) Diagnoses Type 2 diabetes mellitus without complication, without long-term current use of insulin E11.9 Diabetes mellitus type: type 2 Diabetes mellitus snf insulin use: without snf use Diabetes mellitus complication status: without complication Excess skin L98.7 Class 1 obesity due to excess calories with serious comorbidity and body mass index (BMI) of 32.0 to 32.9 in adult E66.09; Z68.32 Obesity type: due to excess calories Obesity classification: adult class 1 (BMI 30 - 34.9) Serious obesity comorbidity presence: with serious comorbidity Body mass index: BMI 32.0-32.9 S/P gastric bypass Z98.84 Hiatal hernia K44.9 Essential hypertension I10
[2023-02-20 13:45] VITALS: BMI 30.1
== END 2023-02-20 14:06 | disposition home or self-care (01) ==
LOC: HO.HBS 14:04
PROVIDERS: PCP Internal Medicine; Visit Provider Physician Assistant Surgical
DX: E11.9 Type 2 diabetes mellitus without complications (principal); L98.7 Excessive and redundant skin and subcutaneous tissue; E66.09 Other obesity due to excess calories; Z68.32 Body mass index [BMI] 32.0-32.9, adult; Z98.84 Bariatric surgery status; K44.9 Diaphragmatic hernia without obstruction or gangrene; I10 Essential (primary) hypertension
CPT/HCPCS: 99214

== ENCOUNTER → 2023-02-20 14:04 | Outpatient (BNVA) | payer OTHER, SELFPAY | PROVIDERS: PCP Internal Medicine; Visit Provider Physician Assistant Surgical ==

== ENCOUNTER → 2023-03-13 16:33 | Outpatient (BNVA) | payer OTHER, SELFPAY | PROVIDERS: PCP Internal Medicine; Visit Provider Dietitian, Registered | DX: E66.9 Obesity, unspecified (principal); Z68.31 Body mass index [BMI] 31.0-31.9, adult; E11.9 Type 2 diabetes mellitus without complications; Z98.84 Bariatric surgery status; Z71.3 Dietary counseling and surveillance | CPT/HCPCS: 97803 ==

== ENCOUNTER 2023-04-16 06:09 | Outpatient (REF) | payer OTHER, SELFPAY ==
[2023-04-16 07:40] LABS: Hematocrit 44.7 % (42.0-52.0); Hemoglobin 15.7 g/dl (14.0-18.0); Mean Corpuscular HGB Conc 35.1 g/dl (31.0-36.0); Mean Corpuscular Volume 88.3 fL (80.0-98.0); Mean Platelet Volume 11.1 fL (9.4-12.4); Platelet Count 207 X10*3/uL (160-400); Red Blood Count 5.06 X10*6/uL (4.60-5.80); Red Cell Distribution Width 13.2 % (11.0-16.0); White Blood Count 5.7 X10*3/uL (4.8-10.8)
[2023-04-16 07:50] LABS: Estimated Average Glucose 128 mg/dL; Hemoglobin A1c % 6.1 % (<6.0)
[2023-04-16 08:39] LABS: Alanine Aminotransferase 35 U/L (0-40); Albumin Level 4.1 g/dL (3.5-5.0); Alkaline Phosphatase 98 U/L (39-117); Anion Gap 13 (12-20); Aspartate Amino Transferase 25 U/L (5-37); Bilirubin Total 0.6 mg/dL (0.0-1.0); Blood Urea Nitrogen 17 mg/dL (9-16); Calcium 9.8 mg/dL (8.4-10.2); Carbon Dioxide 26 mmol/L (22-29); Chloride 103 mmol/L (96-108); Cholesterol 149 mg/dL (<200); Estimated Glomerular Filt Rate > 60; Glucose Fasting 111 mg/dL (60-99); HDL Cholesterol 55 mg/dL (>40); LDL Cholesterol Calculated 76 mg/dL (<100); Potassium 3.7 mmol/L (3.3-5.1); Sodium 138 mmol/L (135-145); Total Protein 6.8 g/dL (6.5-8.0); Triglycerides 94 mg/dL (<150)
[2023-04-16 08:56] LABS: TSH reflex Free T4 2.23 uIU/mL (0.32-4.0)
== END 2023-04-16 06:10 | disposition home or self-care (01) ==
LOC: HO.LAB 06:09
PROVIDERS: PCP Physician Assistant; Visit Provider Physician Assistant
DX: I48.21 Permanent atrial fibrillation (principal); E11.9 Type 2 diabetes mellitus without complications; E78.2 Mixed hyperlipidemia; E03.9 Hypothyroidism, unspecified
CPT/HCPCS: 36415; 80053; 80061; 83036; 84443; 85027

== ENCOUNTER 2023-07-02 07:49 | Outpatient (REF) | payer OTHER, SELFPAY ==
[2023-07-02 08:54] LABS: Hematocrit 43.3 % (42.0-52.0); Hemoglobin 14.9 g/dl (14.0-18.0); Mean Corpuscular HGB Conc 34.4 g/dl (31.0-36.0); Mean Corpuscular Hemoglobin 31.6 pg (27.0-33.0); Mean Corpuscular Volume 91.9 fL (80.0-98.0); Mean Platelet Volume 10.4 fL (9.4-12.4); Platelet Count 224 X10*3/uL (160-400); Red Blood Count 4.71 X10*6/uL (4.60-5.80); Red Cell Distribution Width 13.2 % (11.0-16.0); White Blood Count 6.6 X10*3/uL (4.8-10.8)
[2023-07-02 09:18] LABS: Alanine Aminotransferase 30 U/L (0-40); Albumin Level 4.1 g/dL (3.5-5.0); Alkaline Phosphatase 98 U/L (39-117); Anion Gap 10 (12-20); Aspartate Amino Transferase 26 U/L (5-37); Bilirubin Total 0.5 mg/dL (0.0-1.0); Blood Urea Nitrogen 17 mg/dL (9-16); Calcium 9.3 mg/dL (8.4-10.2); Carbon Dioxide 28 mmol/L (22-29); Chloride 103 mmol/L (96-108); Cholesterol 148 mg/dL (<200); Estimated Glomerular Filt Rate > 60; Glucose Fasting 125 mg/dL (60-99); HDL Cholesterol 69 mg/dL (>40); LDL Cholesterol Calculated 69 mg/dL (<100); Potassium 4.3 mmol/L (3.3-5.1); Sodium 137 mmol/L (135-145); Total Protein 6.7 g/dL (6.5-8.0); Triglycerides 52 mg/dL (<150)
[2023-07-02 09:29] LABS: Prostate Specific Antigen Scr 0.44 ng/mL (<0.05-4.0)
[2023-07-02 09:35] LABS: TSH reflex Free T4 1.99 uIU/mL (0.32-4.0)
[2023-07-02 11:01] LABS: Creatinine Urine 83.43 mg/dL
[2023-07-02 11:21] LABS: Microalbum/Creatinine Ratio Ur 611.2 ug/mg cr (<30)
== END 2023-07-02 07:50 | disposition home or self-care (01) ==
LOC: HO.LAB 07:49
PROVIDERS: PCP Internal Medicine; Visit Provider Physician Assistant
DX: Z12.5 Encounter for screening for malignant neoplasm of prostate (principal); E78.2 Mixed hyperlipidemia; I48.21 Permanent atrial fibrillation; E11.9 Type 2 diabetes mellitus without complications; E03.9 Hypothyroidism, unspecified; I10 Essential (primary) hypertension
CPT/HCPCS: 36415; 80053; 80061; 82043; 82570; 84153; 84443; 85027

== ENCOUNTER 2023-07-02 14:13 | Outpatient (AMB) | payer OTHER, SELFPAY ==
[2023-07-02 14:21] VITALS: BP 114/66; PULSE 58; O2SAT 97; BMI 30.6
--- NOTE | 2023-07-02 14:21 | MHC.PC.OV ---
Vital Signs 07/02/23 14:21 Height 6 ft Weight 225 lb 6 oz BMI 30.6 BP 114/66 Blood Pressure Location Lt brachial Position Sitting Pulse 58 Pulse Source Pulse Oximeter Pulse Oximetry (%) 97 Oxygen Delivery Method Room Air Intake Visit Reasons: Annual Exam + NEEDS PHQ9+ THRIVE Cooker Sulfate Required: No Accompanied by: Self / Same As Patient Allergies No Known Allergies Allergy (Verified 04/10/24 09:32) Medication List - Last Reconciled 07/02/23 by Jose Enrique Gloria MD apixaban 5 mg PO BID 90 days calcium citrate-vitamin D3 315 mg-5 mcg (200 unit) (Calcium Citrate + D) 1 tab PO BID 90 days clotrimazole 1% 1 appl topical BID flash glucose scanning reader ([employer] FX Manda 2 [place]) As directed flash glucose sensor (MENA360Style Manda 14 Day Sensor kit) As directed - covering for [facility] hydrochlorothiazide 25 mg PO DAILY 90 days metformin 500 mg PO DAILY 90 days metoprolol succinate ER 100 mg PO DAILY metoprolol succinate ER 100 mg PO DAILY 90 days mziypecwuqye-swe-ilqh-FA-vit K 45 mg iron- 800 mcg-120 mcg (Bariatric Multivitamins) caps PO Synthroid (levothyroxine) 25 mcg PO DAILY 90 days NS verapamil ER 240 mg PO DAILY 90 days Tobacco use date assessed: 07/02/23 Dental Screening Dental Screen Date: 07/02/23 Did you have a dental visit in the last 12 months?: Yes Did you have a dental problem in the last 6 months where you did not have access to dental care?: No Was dental information given to patient?: Patient has dentist HPI Annual Exam + NEEDS PHQ9+ THRIVE HPI Details Patient comes in today for his annual physical examination - he is a patient of [facility] States that he has been experiencing recurrent cramping pain over the side of his left lower leg lately and that these have been occurring more frequently lately States that his symptoms often occur in the middle of night and wakes him up from his sleep He then has to get up and move his ankle and leg repeatedly and keep on rubbing his leg until his symptoms gradually subside States that it usually takes about 10 minutes for his leg symptoms to calm down and by the time they do, he has a hard time going back to sleep He relates (+) history of lower back pain but states that this has not gotten any worse lately and he does not think that his left leg symptoms are related to his lower back He denies any headaches or dizziness Denies any chest pains, no SOB No nausea/vomiting, no abdominal pain No change in bowel habits noted Needs all of his Rx refilled Had his follow up labs done earlier this morning - to discuss his results Patient states that he has never had a screening colonoscopy done in the past [facility] Medical History (Updated 05/12/24 @ 05:22 by Jose Enrique Gloria MD) Obesity (BMI 30-39.9) VILMA (obstructive sleep apnea) Diabetes mellitus Cholelithiasis Congenital intra-abdominal adhesions Liver fibrosis Steatosis, liver BMI 39.0-39.9,adult Obesity COVID-19 vaccine series completed Major depressive disorder, recurrent, mild Preoperative cardiovascular examination Persistent atrial fibrillation Vitamin B1 deficiency Verruca Colon cancer screening Exposure to COVID-19 virus Herniated cervical disc Hypothyroidism Atrial fibrillation Hyperlipidemia Sleep apnea with use of continuous positive airway pressure (CPAP) Hypertension Insulin dependent type 1 diabetes mellitus Surgical History History of toe surgery S/P gastric bypass History of repair of hiatal hernia History of cardioversion Family History Father Afib CVA (cerebral vascular accident) Mother CVA (cerebral vascular accident) Afib Social History Household Members Other:: Housing: [employer] Are you a primary director of health care marketing to a significant other at home: No Do you presently have visiting nurse or other home services: No Alcohol intake: current Alcohol intake frequency: does not drink Patient Tobacco Use Status: Never used Tobacco e-Cigarette/Vaping Use: Never Used Second Hand Smoke Exposure: No service: No Current occupational status: unemployed Current occupation: Medical Insurance Cognitive needs: No Hearing needs: No Vision needs: Yes Questionnaire PHQ-9 Over the last 2 weeks, how often have you been bothered by any of the following problems? 1. Little interest or pleasure in doing things: not at all 2. Feeling down, depressed, or hopeless: not at all 3. Trouble falling or staying asleep, or sleeping too much: not at all 4. Feeling tired or having little energy: not at all 5. Poor appetite or overeating: not at all 6. Feeling bad about yourself - or that you are a failure or have let yourself or your family down: not at all 7. Trouble concentrating on things, such as reading the newspaper or watching television: not at all 8. Moving or speaking so slowly that other people could have noticed. Or the opposite - being so fidgety or restless that you have been moving around a lot more than usual: not at all 9. Thoughts that you would be better off or of hurting yourself in some way: not at all Total score: 0 Depression Screening Interpretation: Negative Depression Screening Done: Yes 29403 - PHQ-9 Billing: Yes Source: Developed by Drs. Ethan Lawson, Jaimie Wilson, Ahmet Glynn and colleagues, with an educational jermaine from [employer]. Thrive Questionnaire Date Thrive assessed: 07/02/23 I am a: Patient What is your living situation today?: I have a steady place to live Within the past 12 months, did the food you bought not last and you didn't have the money to get more?: Never true Within the past 12 months, did you worry whether your food would run out before you got money to buy more?: Never true Do you have trouble paying for medicines?: No Do you have trouble getting transportation to medical appointments?: No Do you have trouble paying your heating and electricity bill?: No Do you have trouble taking care of your child, family member or friend?: No Do you have trouble with day-to-day activities such as bathing, preparing meals, shopping, managing finances, etc.?: No Are you currently unemployed and looking for a job?: No Are you interested in more education?: No Please select the resources that you would like help with: None Currently or been in a relationship where the following occur: no concerns reported THRIVE Score: 0 AUDIT C Alcohol Use Questionnaire (AUDIT-C) 1. How often do you have a drink containing alcohol?: Monthly or less 2. How many drinks containing alcohol do you have on a typical day when you are drinking?: 1 or 2 3. How often do you have six or more drinks on one occasion?: Never Total Score: 1 Score Reviewed/Action Taken: Yes BOGDAN-7 AMB Questionnaire BOGDAN-7 Date BOGDAN - 7 assessed: 07/02/23 Feeling nervous, anxious, or on edge: 0 = Not at all Not being able to stop or control worryin = Not at all Worrying too much about different things: 0 = Not at all Trouble relaxin = Not at all Being so restless that it is hard to sit still: 0 = Not at all Becoming easily annoyed or irritable: 0 = Not at all Feeling afraid as if something awful might happen: 0 = Not at all Total BOGDAN-7 score (0-4 normal; 5-9 mild; 10-14 moderate; 15-21 severe): 0 Source: Developed by Drs. Ethan Lawson, Jaimie Wilson, Ahmet Glynn and colleagues, with an educational jermaine from [employer]. Review of Systems Const Denies chills, Denies fatigue, Denies fever(s), Denies headache(s), Denies malaise and Denies weakness Eyes Denies blurry vision, Denies change in vision, Denies irritation and Denies itchy eyes ENT Denies dysphagia, Denies dizziness, Denies otalgia, Denies headache(s), Denies nasal congestion, Denies neck pain, Denies odynophagia and Denies sore throat Card Denies chest pain, Denies rapid heart rate, Denies irregular heart rhythm, Denies palpitations and Denies dyspnea Resp Denies chest congestion, Denies cough, Denies dyspnea and Denies wheezing GI Denies abdominal pain, Denies bloating, Denies constipation, Denies dysphagia, Denies heartburn, Denies diarrhea, Denies nausea, Denies odynophagia and Denies vomiting Denies hematuria, Denies difficulty urinating, Denies dysuria, Denies urinary frequency and Denies urinary urgency Musc Reports back pain (over the lower back - chronic), Denies arthralgias, Denies joint swelling, Reports muscle cramps (over his left lower leg - see HPI), Denies muscle weakness and Denies neck pain Skin/Breast Denies change in pigmentation, Denies lesions, Denies rash and Denies unusual bruising Neuro Denies dizziness, Denies headache(s), Denies paresthesias and Denies weakness Endo Denies fatigue and Denies palpitations Aller/Immun Denies itchy eyes and Denies wheezing Physical exam (Primary Care) Vital Signs: Last Vital Signs Pulse 58 07/02/23 14:21 BP 114/66 07/02/23 14:21 Pulse Ox 97 07/02/23 14:21 Oxygen Delivery Method Room Air 07/02/23 14:21 BMI result Body Mass Index 30.6 Tobacco/Smoking Status: Tobacco use Status Tobacco use date assessed 07/02/23 07/02/23 14:23 Patient Tobacco Use Status Never used Tobacco 07/02/23 14:23 e-Cigarette/Vaping Use Never Used 07/02/23 14:23 PHQ-9: PHQ-9 Score PHQ-9: Total score 0 07/02/23 15:54 Depression Screening Interpretation: Negative Thrive Assessment: Date of Thrive Assessment Date Thrive assessed 07/02/23 07/02/23 14:23 Currently or been in a relationship where the following occur: no concerns reported Const General: no acute distress, alert and awake Orientation/consciousness: patient oriented x3 HENMT Head: Yes normocephalic and Yes atraumatic Ears: external ears normal, TM's normal bilaterally and EAC's normal General nose exam: No nasal discharge present Face and sinus: Yes normal facial exam and Yes sinuses nontender Teeth and gingiva: dentition normal Throat: Yes posterior oropharynx normal and Yes tonsils normal (no TP congestion) Eyes Eyelids: Yes eyelids normal Conjunctivae: conjunctivae normal Pupils: Equal, round and reactive pupils present EOM: EOMs intact bilaterally Neck Neck: Yes no lymphadenopathy and Yes supple Thyroid: Thyroid normal Resp Auscultation: clear to auscultation bilaterally, no rales and no wheezes Cardio Rate: regular rate Rhythm: abnormal rhythm irregularly irregular Heart sounds: no murmurs GI Palpation (GI): Soft to palpation, nontender and No hepatosplenomegaly present Auscultation: normal bowel sounds General: Yes no CVA tenderness Back/Spine/Pelvis Back: no CVA tenderness Thoracic/Lumbar Spine: lumbar spinal tenderness (mild) Skin Lesions: no lesions Rashes: no rashes Neuro General: patient oriented x3, moves all extremities, no focal motor deficits and CN's II-XI intact bilaterally Cranial nerves: Yes Equal, round and reactive pupils present Cognition (Neuro): normal cognition Gait exam (Neuro): Normal gait present Extrem General: Yes no clubbing, cyanosis or edema Results AMB Hemoglobin A1c AMB Hemoglobin A1c 6.6 % Last Edit by SUDHIR Hanson on 07/02/23 15:54 Results Reviewed Results Reviewed: Laboratory Last Values Hgb A1c (Clinic) 6.6 % (4.0-6.0) H 07/02/23 15:54 Laboratory Tests 07/02/23 08:05 WBC 6.6 Hgb 14.9 Hct 43.3 Plt Count 224 Sodium 137 Potassium 4.3 Creatinine 0.84 Estimated GFR > 60 Fasting Glucose 125 H Calcium 9.3 AST 26 ALT 30 Triglycerides 52 Cholesterol 148 LDL Cholesterol, Calc 69 HDL Cholesterol 69 PSA Screen 0.44 TSH 1.99 Coding Level of Care Code Est Pt Prev Care 40-64y(21034) Diagnoses Annual physical exam Z00.00 Type 2 diabetes mellitus without complication, without long-term current use of insulin E11.9 Diabetes mellitus complication status: without complication Diabetes mellitus dedicated intermodal truck driver insulin use: without dedicated intermodal truck driver use Diabetes mellitus type: type 2 Albuminuria R80.9 Left leg pain M79.605 Essential hypertension I10 Permanent atrial fibrillation I48.21 Atrial fibrillation type: permanent Mixed hyperlipidemia E78.2 Hyperlipidemia type: mixed hyperlipidemia Acquired hypothyroidism E03.9 Hypothyroidism type: acquired Obesity (BMI 30-39.9) E66.9
== END 2023-07-02 15:58 | disposition home or self-care (01) ==
PROVIDERS: PCP Physician Assistant; Visit Provider Internal Medicine
DX: Z00.00 Encounter for general adult medical examination without abnormal findings (principal); E11.9 Type 2 diabetes mellitus without complications; R80.9 Proteinuria, unspecified; I48.21 Permanent atrial fibrillation; M79.605 Pain in left leg; I10 Essential (primary) hypertension; E78.2 Mixed hyperlipidemia; E03.9 Hypothyroidism, unspecified; E66.9 Obesity, unspecified
CPT/HCPCS: 83036; 99499

== ENCOUNTER 2023-09-26 09:09 | Outpatient (REF) | payer OTHER, SELFPAY ==
[2023-09-26 10:16] LABS: Hematocrit 44.4 % (42.0-52.0); Mean Corpuscular HGB Conc 33.8 g/dl (31.0-36.0); Mean Corpuscular Hemoglobin 29.9 pg (27.0-33.0); Mean Corpuscular Volume 88.4 fL (80.0-98.0); Mean Platelet Volume 10.8 fL (9.4-12.4); Platelet Count 212 X10*3/uL (160-400); Red Blood Count 5.02 X10*6/uL (4.60-5.80); Red Cell Distribution Width 13.1 % (11.0-16.0); White Blood Count 7.4 X10*3/uL (4.8-10.8)
[2023-09-26 11:27] LABS: Alanine Aminotransferase 35 U/L (0-40); Albumin Level 4.4 g/dL (3.5-5.0); Alkaline Phosphatase 92 U/L (39-117); Anion Gap 10 (12-20); Aspartate Amino Transferase 28 U/L (5-37); Bilirubin Total 0.4 mg/dL (0.0-1.0); Blood Urea Nitrogen 21 mg/dL (9-16); Calcium 9.8 mg/dL (8.4-10.2); Carbon Dioxide 28 mmol/L (22-29); Chloride 104 mmol/L (96-108); Estimated Glomerular Filt Rate > 60; Glucose Fasting 144 mg/dL (60-99); Potassium 4.5 mmol/L (3.3-5.1); Sodium 137 mmol/L (135-145); Total Protein 7.3 g/dL (6.5-8.0)
[2023-09-26 11:43] LABS: TSH reflex Free T4 2.27 uIU/mL (0.32-4.0)
[2023-09-26 11:50] LABS: Creatinine Urine 127.71 mg/dL
[2023-09-26 12:00] LABS: Microalbum/Creatinine Ratio Ur 1042.9 ug/mg cr (<30)
== END 2023-09-26 09:10 | disposition home or self-care (01) ==
LOC: HO.LAB 09:09
PROVIDERS: PCP Physician Assistant; Visit Provider Internal Medicine
DX: E11.8 Type 2 diabetes mellitus with unspecified complications (principal); E03.9 Hypothyroidism, unspecified; R80.9 Proteinuria, unspecified; I10 Essential (primary) hypertension
CPT/HCPCS: 36415; 80053; 82043; 82570; 84443; 85027; 99202; 99212

== ENCOUNTER 2023-09-26 09:43 | Outpatient (AMB) | payer OTHER, SELFPAY ==
[2023-09-26 09:45] VITALS: BP 122/80; PULSE 88; O2SAT 98; BMI 32.3
--- NOTE | 2023-09-26 09:45 | HO.NEPHOV ---
HPI HPI Comments History of Present Illness Details Colton is a 58-year-old man with a history of diabetes mellitus for more than 20 years along with significant obesity. He underwent gastric bypass surgery in 2021. He lost about 150 lb Back in 2021 he had a urine microalbumin creatinine ratio of 22. Which has gradually increased to 611 as of June 2023 and hence this referral. Serum creatinine has been stable around 0.8 mg/dL. He has a history of atrial fibrillation and currently on metoprolol and verapamil for both rate control and management of hypertension. In addition he is on hydrochlorothiazide 25 mg a day. At present he has no specific complaints like shortness of breath chest pain nausea vomiting leg edema. No polyuria polydipsia. [facility] Medical History Diabetes mellitus Cholelithiasis Congenital intra-abdominal adhesions Liver fibrosis Steatosis, liver BMI 39.0-39.9,adult Obesity COVID-19 vaccine series completed Major depressive disorder, recurrent, mild Preoperative cardiovascular examination Persistent atrial fibrillation Vitamin B1 deficiency Verruca Colon cancer screening Exposure to COVID-19 virus Herniated cervical disc Hypothyroidism Atrial fibrillation Hyperlipidemia Sleep apnea with use of continuous positive airway pressure (CPAP) Hypertension Insulin dependent type 1 diabetes mellitus Morbid obesity Surgical History S/P gastric bypass History of repair of hiatal hernia History of cardioversion Family History Father Afib CVA (cerebral vascular accident) Mother CVA (cerebral vascular accident) Afib Social History Household Members Other:: Housing: Condominium Are you a primary before and after school daycare worker to a significant other at home: No Do you presently have visiting nurse or other home services: No Alcohol intake: current Alcohol intake frequency: does not drink Patient Tobacco Use Status: Never used Tobacco e-Cigarette/Vaping Use: Never Used Second Hand Smoke Exposure: No service: No Current occupational status: unemployed Current occupation: Medical Insurance Cognitive needs: No Hearing needs: No Vision needs: Yes Vital Signs 09/26/23 09:45 Height 6 ft Weight 238 lb BMI 32.3 BP 122/80 Blood Pressure Location Lt brachial Position Sitting Pulse 88 Pulse Source Pulse Oximeter Pulse Oximetry (%) 98 Oxygen Delivery Method Room Air Physical Exam Vital Signs: Last Vital Signs Pulse 88 09/26/23 09:45 BP 122/80 09/26/23 09:45 Pulse Ox 98 09/26/23 09:45 Oxygen Delivery Method Room Air 09/26/23 09:45 BMI result Body Mass Index 32.3 Const General: comfortable Nutritional Appearance: well nourished Orientation/consciousness: patient oriented x3 HEENT Head: No normal to inspection Mouth: moist mucous membranes Neck Neck: Yes supple and Yes no JVD Resp Auscultation: clear to auscultation bilaterally, no rales and rub present Cardio Jugular venous distension: no JVD Palpation: no palpable S3 and no palpable S4 Heart sounds: no rubs GI Palpation (GI): Soft to palpation and nontender Percussion: No Fluid wave present General: Yes no CVA tenderness Back/Spine/Pelvis Back: no CVA tenderness Skin General skin exam: no rashes or lesions noted Neuro General: patient oriented x3 Extrem General: Yes no pedal edema and No clubbing Assessment & Plan Assessment & Plan (1) Albuminuria: Comment: Albuminuria in the setting of obesity and diabetes mellitus Code(s): R80.9 - Proteinuria, unspecified Plan: Leah is a 58-year-old man with a history of obesity and longstanding diabetes mellitus with proteinuria. While he was obese the urine microalbumin creatinine ratio was 47. However after losing weight the urine protein excretion is in gradually increased to 611. I believe this is primarily due to underlying diabetes mellitus than obesity. Renal function stable. Goal is to slow the progression of renal disease. He will benefit from an MOHIT inhibitor or ARB. At present blood pressure is well controlled. Therefore I will replace hydrochlorothiazide with losartan 25 mg a day. Continue with both metoprolol and verapamil since these are being used for rate control in the setting of atrial fibrillation. Encouraged him to stay on low-sodium diet He should monitor his blood pressure at home. We will monitor urine protein excretion. For sake of completion I will obtain urine electrophoresis Orders: Orders Creatinine Urine 6 Weeks N05.9 - Unspecified nephritic syndrome with unspecified morphologic changes, R80.9 - Proteinuria, unspecified Total Protein Urine Random 6 Weeks R80.9 - Proteinuria, unspecified UA and rflx microscopic 6 Weeks R80.9 - Proteinuria, unspecified Medications: New losartan 25 mg PO DAILY 30 tabs 3RF Discontinued hydrochlorothiazide Discontinued Reason: Doctor's Order 25 mg PO DAILY 90 days 90 tabs 1RF I10 - Essential (primary) hypertension, R60.0 - Localized edema Coding Level of Care Code New Pt Level 4 (67266) Diagnoses Albuminuria R80.9 Results Reviewed Nephrology Results: Hgb 15.0 g/dl (14.0-18.0) 09/26/23 WBC 7.4 X10*3/uL (4.8-10.8) 09/26/23 Plt Count 212 X10*3/uL (160-400) 09/26/23 Sodium 137 mmol/L (135-145) 07/02/23 Potassium 4.3 mmol/L (3.3-5.1) 07/02/23 Chloride 103 mmol/L (96-108) 07/02/23 Carbon Dioxide 28 mmol/L (22-29) 07/02/23 BUN 17 mg/dL (9-16) H 07/02/23 Creatinine 0.84 mg/dL (0.5-1.4) 07/02/23 Calcium 9.3 mg/dL (8.4-10.2) 07/02/23 Urine Creatinine 83.43 mg/dL 07/02/23
== END 2023-09-26 10:16 | disposition home or self-care (01) ==
PROVIDERS: PCP Internal Medicine; Visit Provider Internal Medicine Hypertension Specialist
DX: R80.9 Proteinuria, unspecified (principal)
CPT/HCPCS: 99204

== ENCOUNTER 2023-09-26 12:08 | Outpatient (AMB) | payer OTHER, SELFPAY ==
--- NOTE | 2023-09-26 12:19 | A.OFFVIS_ITS ---
Intake Visit Reasons: pre Colonoscopy Intake Note: Patient 1st pre colonoscopy screening. Patient denies any GI issues. Rn Integrity Required: No Accompanied by: Self / Same As Patient Allergies No Known Allergies Allergy (Verified 09/26/23 12:17) Medication List - Last Reconciled 10/01/23 by Brittni Hoskins PA-C apixaban 5 mg PO BID 90 days bisacodyl (Dulcolax (bisacodyl)) 20 mg (4 x 5 mg) PO ONCE PRN 1 day flash glucose scanning reader ([employer] Manda 2 [place]) As directed flash glucose sensor ([employer] Manda 14 Day Sensor kit) As directed - covering for Branden Del Cid losartan 25 mg PO DAILY metformin 500 mg PO DAILY 90 days metoprolol succinate ER 100 mg PO DAILY 90 days mpucbqkinojl-rqm-odzo-FA-vit K 45 mg iron- 800 mcg-120 mcg (Bariatric Multivitamins) caps PO polyethylene glycol 3350 (Miralax) 238 grams PO ONCE PRN 1 day sitagliptin phosphate (Januvia) 100 mg PO DAILY 90 days Synthroid (levothyroxine) 25 mcg PO DAILY 90 days NS verapamil ER 240 mg PO DAILY 90 days HPI Comments Details: 58-year-old male AFIB, DM-anticoagulants monitor referred for screening colonoscopy Anticoagulation for many years has discontinued for testing/procedure without incident S/p gastric bypass-08/30- lost 150 lbs- no more cpap He has no GI complaint Normal bowel pattern Appetite is good He travels frequently No nausea, vomiting, hematemesis, hematochezia fever or chills PFSH Medical History (Updated 09/26/23 @ 13:27 by Brittni Hoskins PA-C) VILMA (obstructive sleep apnea) Diabetes mellitus Cholelithiasis Congenital intra-abdominal adhesions Liver fibrosis Steatosis, liver BMI 39.0-39.9,adult Obesity COVID-19 vaccine series completed Major depressive disorder, recurrent, mild Preoperative cardiovascular examination Persistent atrial fibrillation Vitamin B1 deficiency Verruca Colon cancer screening Exposure to COVID-19 virus Herniated cervical disc Hypothyroidism Atrial fibrillation Hyperlipidemia Sleep apnea with use of continuous positive airway pressure (CPAP) Hypertension Insulin dependent type 1 diabetes mellitus Morbid obesity Surgical History S/P gastric bypass History of repair of hiatal hernia History of cardioversion Family History Father Afib CVA (cerebral vascular accident) Mother CVA (cerebral vascular accident) Afib Social History Household Members Other:: Housing: Condominium Are you a primary critical care registered nurse to a significant other at home: No Do you presently have visiting nurse or other home services: No Alcohol intake: current Alcohol intake frequency: does not drink Patient Tobacco Use Status: Never used Tobacco e-Cigarette/Vaping Use: Never Used Second Hand Smoke Exposure: No service: No Current occupational status: unemployed Current occupation: Medical Insurance Cognitive needs: No Hearing needs: No Vision needs: Yes Review of Systems Const All systems reviewed & are unremarkable except as noted in HPI and below Card Denies chest pain and Denies dyspnea Resp Denies dyspnea GI Reports no additional complaints Physical Exam Const General: cooperative and comfortable Orientation/consciousness: patient oriented x3 Limitations: no limitations Neuro General: patient oriented x3 Assessment & Plan Assessment & Plan (1) Encounter for screening colonoscopy: Comment: Discussed procedure, rare risks need for escort Code(s): Z12.11 - Encounter for screening for malignant neoplasm of colon Category: Medical (2) Atrial fibrillation: Comment: on eliquis -he has discontinued for procedures previously with no issues Code(s): I48.91 - Unspecified atrial fibrillation Category: Medical Qualifiers: Atrial fibrillation type: permanent Qualified Code(s): I48.21 - Permanent atrial fibrillation Plan: Hold Eliquis 2 days prior to procedure (3) Diabetes mellitus: Code(s): E11.9 - Type 2 diabetes mellitus without complications Category: Medical Qualifiers: Diabetes mellitus complication status: without complication Diabetes mellitus residential insulin use: without residential use Diabetes mellitus type: type 2 Qualified Code(s): E11.9 - Type 2 diabetes mellitus without complications Plan: Hold Eliquis 2 days prior to procedure Hold Januvia for 2 days prior to procedure No metformin day before procedure (prep day) No diabetes medications morning of procedure Plan Hold Eliquis 2 days prior to procedure Hold Januvia for 2 days prior to procedure No metformin day before procedure (prep day) No diabetes medications morning of procedure Orders: Orders Colonoscopy - GI Use Only 09/26/23 Z12.11 - Encounter for screening for malignant neoplasm of colon Medications: New bisacodyl (Dulcolax (bisacodyl)) Day before procedure @ 12 noon Take 4 tablets by mouth followed by large glass of water 20 mg (4 x 5 mg) PO ONCE 1 day PRN 4 tabs 0RF colonoscopy prep Z12.11 - Encounter for screening for malignant neoplasm of colon polyethylene glycol 3350 (Miralax) Take as directed by mouth the day before your procedure. 238 grams PO ONCE 1 day PRN 238 grams 0RF laxative effect Patient Instructions: A very pleasant 58-year-old Gent- Index screening colonoscopy MiraLax Gatorade prep, reviewed literature given Hold Januvia for 2 days prior to procedure No metformin day before procedure (prep day) No diabetes medications morning of procedure Encouraged to call questions or concerns or any changes in medications
== END 2023-09-26 13:02 | disposition home or self-care (01) ==
PROVIDERS: PCP Internal Medicine; Visit Provider Physician Assistant
DX: Z01.818 Encounter for other preprocedural examination (principal); Z12.11 Encounter for screening for malignant neoplasm of colon; I48.21 Permanent atrial fibrillation; E11.9 Type 2 diabetes mellitus without complications
CPT/HCPCS: 99212

== ENCOUNTER 2024-01-07 06:17 | Outpatient (REF) | payer OTHER, SELFPAY ==
[2024-01-07 06:38] LABS: MANUAL DIFF FLAG NO
[2024-01-07 07:30] LABS: Basophils Absolute Auto 0.1 X10*3/uL (0.0-0.2); Basophils Percent Auto 0.7 % (0-2); Eosinophils Absolute Auto 0.2 X10*3/uL (0.0-0.4); Eosinophils Percent Auto 3.4 % (0-4); Hematocrit 44.4 % (42.0-52.0); Hemoglobin 15.2 g/dl (14.0-18.0); Imm Gran Abs Auto 0.03 X10*3/uL (0.00-0.03); Imm Gran Pct Auto 0.4 % (0.0-0.4); Lymphocytes Percent Auto 29.8 % (20-40); Mean Corpuscular HGB Conc 34.2 g/dl (31.0-36.0); Mean Corpuscular Hemoglobin 30.2 pg (27.0-33.0); Mean Corpuscular Volume 88.3 fL (80.0-98.0); Mean Platelet Volume 10.5 fL (9.4-12.4); Monocytes Absolute Auto 0.7 X10*3/uL (0.1-1.2); Monocytes Percent Auto 10.4 % (2-11); Neutrophils Absolute Auto 3.7 x10*3/uL (2.0-8.3); Neutrophils Percent Auto 55.3 % (45-73); Platelet Count 232 X10*3/uL (160-400); Red Blood Count 5.03 X10*6/uL (4.60-5.80); Red Cell Distribution Width 14.1 % (11.0-16.0); White Blood Count 6.7 X10*3/uL (4.8-10.8)
[2024-01-07 07:54] LABS: Estimated Average Glucose 131 mg/dL; Hemoglobin A1c % 6.2 % (<6.0)
[2024-01-07 08:04] LABS: Alanine Aminotransferase 25 U/L (0-40); Albumin Level 4.4 g/dL (3.5-5.0); Alkaline Phosphatase 80 U/L (39-117); Anion Gap 14 (12-20); Aspartate Amino Transferase 30 U/L (5-37); Bilirubin Total 0.5 mg/dL (0.0-1.0); Blood Urea Nitrogen 22 mg/dL (9-16); Calcium 9.7 mg/dL (8.4-10.2); Carbon Dioxide 24 mmol/L (22-29); Chloride 105 mmol/L (96-108); Cholesterol 159 mg/dL (<200); Estimated Glomerular Filt Rate > 60; Glucose Fasting 110 mg/dL (60-99); HDL Cholesterol 68 mg/dL (>40); LDL Cholesterol Calculated 75 mg/dL (<100); Potassium 3.9 mmol/L (3.3-5.1); Sodium 139 mmol/L (135-145); Total Protein 7.4 g/dL (6.5-8.0); Triglycerides 81 mg/dL (<150)
[2024-01-07 08:18] LABS: Free T4 (Free Thyroxine) 0.98 ng/dL (0.71-1.85); Thyroid Stimulating Hormone 2.79 uIU/mL (0.32-4.0); Vitamin D 25-OH Total 48.8 ng/mL (>30)
[2024-01-07 08:53] LABS: Appearance Urine Clear; Color Urine Yellow; Glucose Urine UA >=1000 mg/dL (Negative); Leukocyte Esterase Urine Negative (Negative); Nitrite Urine Negative (Negative); PH 5.5 (5.0-9.0); Specific Gravity - Urine >= 1.030 (1.005-1.025); UMIC TRIGGER UACC YES; Urine Blood Negative (Negative); Urine Ketones Negative (Negative); Urine Protein 30 (1+) mg/dL (Neg-Trace)
[2024-01-07 08:58] LABS: Bacteria Urine None Seen (None Seen); Hyaline Casts Urine 0-2 /LPF (0-2); RBC Urine 0-2 /HPF (0-2); Squamous Epithelial Cell Urine 0-2 /HPF (0-2); WBC Urine 0-5 /HPF (0-5)
[2024-01-07 09:20] LABS: Total Protein Urine Random 39 mg/dL (<12)
[2024-01-07 09:23] LABS: Creatinine Urine 101.38 mg/dL; Microalbum/Creatinine Ratio Ur 270.2 ug/mg cr (<30)
== END 2024-01-07 06:18 | disposition home or self-care (01) ==
LOC: HO.LAB 06:17
PROVIDERS: Absent Provider Internal Medicine Hypertension Specialist; PCP Physician Assistant; Visit Provider Internal Medicine
DX: D64.9 Anemia, unspecified (principal); E78.00 Pure hypercholesterolemia, unspecified; E55.9 Vitamin D deficiency, unspecified; E03.9 Hypothyroidism, unspecified; R80.9 Proteinuria, unspecified; E11.29 Type 2 diabetes mellitus with other diabetic kidney complication
CPT/HCPCS: 36415; 80053; 80061; 81001; 82043; 82306; 82570; 83036; 84156; 84439; 84443; 85025; 99212

== ENCOUNTER 2024-01-07 08:22 | Outpatient (AMB) | payer OTHER, SELFPAY ==
--- NOTE | 2024-01-07 08:55 | A.OFFPC_ITS ---
Vital Signs 01/07/24 08:56 Height 6 ft Weight 239 lb BMI 32.4 BP 122/70 Blood Pressure Location Lt brachial Position Sitting Pulse 55 Pulse Source Pulse Oximeter Pulse Oximetry (%) 100 Oxygen Delivery Method Room Air Intake Visit Reasons: DMII/meds F/U Computational Chemist: Not Required per policy Accompanied by: Self / Same As Patient Allergies No Known Allergies Allergy (Verified 01/07/24 11:18) Medication List - Last Reconciled 01/07/24 by Quique Del Cid PA-C apixaban 5 mg PO BID 90 days bisacodyl (Dulcolax (bisacodyl)) 20 mg (4 x 5 mg) PO ONCE PRN 1 day flash glucose scanning reader (IntelGenXStyle Manda 2 [place]) As directed flash glucose sensor (FreeStyle Manda 14 Day Sensor kit) As directed - covering for Branden Suazoon losartan 25 mg PO DAILY metformin 500 mg PO DAILY 90 days metoprolol succinate ER 100 mg PO DAILY 90 days fxwftzsntejr-tpo-ukaf-FA-vit K 45 mg iron- 800 mcg-120 mcg (Bariatric Multivitamins) caps PO polyethylene glycol 3350 (Miralax) 238 grams PO ONCE PRN 1 day sitagliptin phosphate (Januvia) 100 mg PO DAILY 90 days Synthroid (levothyroxine) 25 mcg PO DAILY 90 days NS verapamil ER 240 mg PO DAILY 90 days Tobacco use date assessed: 07/02/23 Dental Screening Dental Screen Date: 07/02/23 HPI DMII/meds F/U HPI Details Patient is a 58-year-old male here today for follow-up visit ? Patient has a past medical history significant for morbid obesity,type 2 diabetic, hypertension, VILMA, hyperlipidemia, AFib, hypothyroidism Morbid obesity:? He is status post bariatric surgery? BMI still remains elevated. He is interested starting a GLP 1 for added benefit of weight loss. .. AFIB: Continues on rate control with verapamil?, metoprolol and ELiquis?. He denies any overt signs of bleeding.. ? Is being? followed by a documentation specialist while in [place] whom attempted cardioversion though was unsuccessful.? . Type 2 diabetic: Most recent fasting blood sugar and A1c stable. A1c is 6.2. He continues on metformin and Januvia. Of note does have microvascular complication with nephropathy- elevated microalbuminuria. Has followed up with Nephrology and was started on losartan PLAN: Will try to chance mendoza him to a GLP 1 for added benefit of weight loss. .. Hypothyroidism:? Most recent TSH acceptable, continues on levothyroxine 50 mcg.? Laboratory Tests 09/26/23 01/07/24 09:25 06:31 RBC 5.03 Creatinine 0.92 Fasting Glucose 144 H 110 H Hemoglobin A1c % 6.2 H Cholesterol 159 TSH 2.79 [facility] Medical History (Updated 01/07/24 @ 13:14 by Quique Del Cid PA-C) VILMA (obstructive sleep apnea) Diabetes mellitus Cholelithiasis Congenital intra-abdominal adhesions Liver fibrosis Steatosis, liver BMI 39.0-39.9,adult Obesity COVID-19 vaccine series completed Major depressive disorder, recurrent, mild Preoperative cardiovascular examination Persistent atrial fibrillation Vitamin B1 deficiency Verruca Colon cancer screening Exposure to COVID-19 virus Herniated cervical disc Hypothyroidism Atrial fibrillation Hyperlipidemia Sleep apnea with use of continuous positive airway pressure (CPAP) Hypertension Insulin dependent type 1 diabetes mellitus Surgical History S/P gastric bypass History of repair of hiatal hernia History of cardioversion Family History Father Afib CVA (cerebral vascular accident) Mother CVA (cerebral vascular accident) Afib Social History Household Members Other:: Housing: Condominium Are you a primary care partner to a significant other at home: No Do you presently have visiting nurse or other home services: No Alcohol intake: current Alcohol intake frequency: does not drink Patient Tobacco Use Status: Never used Tobacco e-Cigarette/Vaping Use: Never Used Second Hand Smoke Exposure: No service: No Current occupational status: unemployed Current occupation: Medical Insurance Cognitive needs: No Hearing needs: No Vision needs: Yes Questionnaire Thrive Questionnaire Date Thrive assessed: 07/02/23 BOGDAN-7 AMB Questionnaire BOGDAN-7 Date BOGDAN - 7 assessed: 07/02/23 Source: Developed by Drs. Ethan Lawson, Jaimie Wilson, Ahmet Glynn and colleagues, with an educational jermaine from [employer]. Review of Systems Const Denies headache(s) Eyes Denies loss of vision ENT Denies vertigo, Denies dizziness, Denies headache(s) and Denies sore throat Card Denies chest pain, Denies leg edema and Denies lightheadedness Resp Denies cough, Denies hemoptysis and Denies wheezing GI Denies abdominal pain, Denies melena, Denies constipation, Denies diarrhea and Denies vomiting Denies dysuria, Denies urinary frequency and Denies urinary urgency Musc Denies arthralgias, Denies joint swelling, Denies numbness and Denies tingling Neuro Denies Abnormal speech present, Denies behavioral changes, Denies vertigo, Denies dizziness, Denies headache(s), Denies loss of vision, Denies memory loss, Denies numbness and Denies tingling Psych Denies anxiety, Denies behavioral changes, Denies depression, Denies memory loss and Denies panic attacks Roland/Lymph Denies easy bleeding and Denies easy bruising Aller/Immun Denies wheezing Physical exam (Primary Care) Vital Signs: Last Vital Signs Pulse 55 01/07/24 08:56 BP 122/70 01/07/24 08:56 Pulse Ox 100 01/07/24 08:56 Oxygen Delivery Method Room Air 01/07/24 08:56 BMI result Body Mass Index 32.4 Tobacco/Smoking Status: Tobacco use Status Tobacco use date assessed 07/02/23 01/07/24 08:56 Patient Tobacco Use Status Never used Tobacco 01/07/24 08:56 e-Cigarette/Vaping Use Never Used 01/07/24 08:56 Thrive Assessment: Date of Thrive Assessment Date Thrive assessed 07/02/23 01/07/24 08:56 Const General: healthy appearing, no acute distress, alert and awake Nutritional Appearance: well nourished Orientation/consciousness: oriented to person, oriented to place and oriented to time HENMT Ears: TM's normal bilaterally General nose exam: Normal nasal mucous membranes and turbinates present Eyes Conjunctivae: conjunctivae normal Sclerae: sclerae normal Pupils: Equal, round and reactive pupils present Neck Neck: Yes no lymphadenopathy and Yes no JVD Thyroid: Thyroid normal Carotids: no bruits Resp Effort & Inspection: normal respiratory effort and not tachypneic Auscultation: no crackles, no rales, no rhonchi and no wheezes Cardio Rate: regular rate Rhythm: regular rhythm Heart sounds: no murmurs and normal S1 and S2 GI Palpation (GI): Soft to palpation, nontender, no hepatomegaly and no splenomegaly Auscultation: normal bowel sounds Skin General skin exam: no rashes or lesions noted and dry skin Neuro General: oriented to person, oriented to place and oriented to time Cranial nerves: Yes Equal, round and reactive pupils present Speech: No Abnormal speech present Gait exam (Neuro): Normal gait present Motor exam (neuro): no tremor noted Extrem Right upper extremity: full ROM Left upper extremity: full ROM Right lower extremity: full ROM; no edema Left lower extremity: full ROM; no edema Psych Mental Status: mental status grossly normal Speech and movement: Normal speech and movement present Affect: normal affect Attitude: cooperative Thought process: Normal thought process present Assessment and Plan Assessment & Plan (1) DMII (diabetes mellitus, type 2): Code(s): E11.9 - Type 2 diabetes mellitus without complications Qualifiers: Diabetes mellitus complication detail: with diabetic microalbuminuria Diabetes mellitus complication status: with kidney complications Diabetes mellitus exterminator insulin use: without half-way use Qualified Code(s): E11.29 - Type 2 diabetes mellitus with other diabetic kidney complication; R80.9 - Proteinuria, unspecified Plan: Patient's type 2 diabetes fairly well controlled. Does have microvascular complications with microalbuminuria. Has been followed by Nephrology and was started losartan 25 mg. Will start GL P1 for added benefit of weight loss. (2) Essential hypertension: Code(s): I10 - Essential (primary) hypertension Plan: Patient reports his blood pressures have been stable at home. Does have higher blood pressures from time to time. Will continue him on his current antihypertensive medication with goal blood pressure be consistently below 140/90 (3) Hypothyroidism: Code(s): E03.9 - Hypothyroidism, unspecified Qualifiers: Hypothyroidism type: acquired Qualified Code(s): E03.9 - Hypothyroidis m, unspecified Plan: Patient's most recent TSH has been stable. Continues on levothyroxine 25 mcg will continue to follow TSH to assure normal (4) Atrial fibrillation: Comment: on eliquis -he has discontinued for procedures previously with no issues Code(s): I48.91 - Unspecified atrial fibrillation Qualifiers: Atrial fibrillation type: permanent Qualified Code(s): I48.21 - Permanent atrial fibrillation Plan: Patient continues on anticoagulation without any overt signs of bleeding. Has rate control with verapamil. He denies any shortness of breath, palpitations chest discomfort or dizziness. (5) Obesity: Code(s): E66.9 - Obesity, unspecified Qualifiers: Obesity type: due to excess calories Obesity classification: adult class 1 (BMI 30 - 34.9) Serious obesity comorbidity presence: with serious comorbidity Body mass index: BMI 32.0-32.9 Qualified Code(s): E66.09 - Other obesity due to excess calories; Z68.32 - Body mass index [BMI] 32.0-32.9, adult Plan: Patient's BMI still remains above 30. Continues follow-up with bariatric program. He reports his weight somewhat has plateaued and has actually gained a few lb since last office visit. He would like to try GLP 1 to help him lose more weight. Orders: Orders Comprehensive [place]. Panel Fast Today E11.9 - Type 2 diabetes mellitus without complications TSH reflex Free T4 Today E03.9 - Hypothyroidism, unspecified Complete Blood Count no Diff Today I10 - Essential (primary) hypertension Medications: New tirzepatide (Mounjaro) 2.5 mg (0.5 mL) subcut QWEEK 2 mL 0RF 4 weeks E11.9 - Type 2 diabetes mellitus without complications Refilled verapamil ER 240 mg PO DAILY 90 caps 1RF 90 days I48.21 - Permanent atrial fibrillation metformin 500 mg PO DAILY 90 tabs 1RF 90 days E11.9 - Type 2 diabetes mellitus without complications Synthroid (levothyroxine) 25 mcg PO DAILY 90 tabs 1RF 90 days NS E03.9 - Hypothyroidism, unspecified metoprolol succinate ER 100 mg PO DAILY 90 tabs 1RF 90 days I10 - Essential (primary) hypertension apixaban 5 mg PO BID 180 tabs 1RF 90 days I48.21 - Permanent atrial fibrillation sitagliptin phosphate (Januvia) 100 mg PO DAILY 90 days 90 tabs 1RF Patient Instructions: Goal: A1c to remain below 7.0 Barriers: Adherence to physical activity and healthy eating habits Coding Level of Care Code Est Pt Prev Care 40-64y(23876) Diagnoses Type 2 diabetes mellitus with diabetic microalbuminuria, without long-term current use of insulin E11.29; R80.9 Diabetes mellitus complication detail: with diabetic microalbuminuria Diabetes mellitus complication status: with kidney complications Diabetes mellitus half-way insulin use: without half-way use Essential hypertension I10 Acquired hypothyroidism E03.9 Hypothyroidism type: acquired Permanent atrial fibrillation I48.21 Atrial fibrillation type: permanent Class 1 obesity due to excess calories with serious comorbidity and body mass index (BMI) of 32.0 to 32.9 in adult E66.09; Z68.32 Obesity type: due to excess calories Obesity classification: adult class 1 (BMI 30 - 34.9) Serious obesity comorbidity presence: with serious comorbidity Body mass index: BMI 32.0-32.9
[2024-01-07 08:56] VITALS: BP 122/70; PULSE 55; O2SAT 100; BMI 32.4
== END 2024-01-07 09:34 | disposition home or self-care (01) ==
PROVIDERS: PCP Physician Assistant; Visit Provider Physician Assistant
DX: E11.29 Type 2 diabetes mellitus with other diabetic kidney complication (principal); R80.9 Proteinuria, unspecified; I10 Essential (primary) hypertension; I48.21 Permanent atrial fibrillation; E03.9 Hypothyroidism, unspecified
CPT/HCPCS: 99214

== ENCOUNTER 2024-01-07 10:57 | Outpatient (AMB) | payer OTHER, SELFPAY ==
[2024-01-07 11:16] VITALS: BP 118/70; PULSE 60; O2SAT 97; BMI 32.7
--- NOTE | 2024-01-07 11:16 | HO.NEPHOV ---
Vital Signs 01/07/24 11:16 Height 6 ft Weight 241 lb BMI 32.7 BP 118/70 Blood Pressure Location Rt brachial Position Sitting Pulse 60 Pulse Source Pulse Oximeter Pulse Oximetry (%) 97 Oxygen Delivery Method Room Air Intake Visit Reasons: 6-8 wks follow up Wet Cotton Feeder Required: No Accompanied by: Self / Same As Patient Allergies No Known Allergies Allergy (Verified 01/07/24 11:18) Medication List - Last Reconciled 01/07/24 by Jay Negron MD apixaban 5 mg PO BID 90 days bisacodyl (Dulcolax (bisacodyl)) 20 mg (4 x 5 mg) PO ONCE PRN 1 day flash glucose scanning reader (FreeStyle Manda 2 [place]) As directed flash glucose sensor (FreeStyle Manda 14 Day Sensor kit) As directed - covering for Branden Del Cid losartan 25 mg PO DAILY metformin 500 mg PO DAILY 90 days metoprolol succinate ER 100 mg PO DAILY 90 days gqrktbkcudrr-ecz-aafu-FA-vit K 45 mg iron- 800 mcg-120 mcg (Bariatric Multivitamins) caps PO polyethylene glycol 3350 (Miralax) 238 grams PO ONCE PRN 1 day Synthroid (levothyroxine) 25 mcg PO DAILY 90 days NS tirzepatide (Mounjaro) 2.5 mg (0.5 mL) subcut QWEEK 4 weeks verapamil ER 240 mg PO DAILY 90 days HPI Comments Details: Colton is a 58-year-old man with a history of diabetes mellitus for more than 20 years along with significant obesity. He underwent gastric bypass surgery in 2021. He lost about 150 lb Back in 2021 he had a urine microalbumin creatinine ratio of 22. Which has gradually increased to 611 as of June 2023 and hence this referral. Serum creatinine has been stable around 0.8 mg/dL. He has a history of atrial fibrillation and currently on metoprolol and verapamil for both rate control and management of hypertension. In addition he is on hydrochlorothiazide 25 mg a day. At present he has no specific complaints like shortness of breath chest pain nausea vomiting leg edema. No polyuria polydipsia. [facility] Medical History (Updated 01/07/24 @ 13:14 by Quique Del Cid PA-C) VILMA (obstructive sleep apnea) Diabetes mellitus Cholelithiasis Congenital intra-abdominal adhesions Liver fibrosis Steatosis, liver BMI 39.0-39.9,adult Obesity COVID-19 vaccine series completed Major depressive disorder, recurrent, mild Preoperative cardiovascular examination Persistent atrial fibrillation Vitamin B1 deficiency Verruca Colon cancer screening Exposure to COVID-19 virus Herniated cervical disc Hypothyroidism Atrial fibrillation Hyperlipidemia Sleep apnea with use of continuous positive airway pressure (CPAP) Hypertension Insulin dependent type 1 diabetes mellitus Surgical History S/P gastric bypass History of repair of hiatal hernia History of cardioversion Family History Father Afib CVA (cerebral vascular accident) Mother CVA (cerebral vascular accident) Afib Social History Household Members Other:: Housing: Condominium Are you a primary grounds caretaker to a significant other at home: No Do you presently have visiting nurse or other home services: No Alcohol intake: current Alcohol intake frequency: does not drink Patient Tobacco Use Status: Never used Tobacco e-Cigarette/Vaping Use: Never Used Second Hand Smoke Exposure: No service: No Current occupational status: unemployed Current occupation: Medical Insurance Cognitive needs: No Hearing needs: No Vision needs: Yes Physical Exam Vital Signs: Last Vital Signs Pulse 60 01/07/24 11:16 BP 118/70 01/07/24 11:16 Pulse Ox 97 01/07/24 11:16 Oxygen Delivery Method Room Air 01/07/24 11:16 BMI result Body Mass Index 32.7 Const General: comfortable; No acute distress Orientation/consciousness: patient oriented x3 Eyes General: appearance normal, both eyes and all related structures Visual Muniz: normal visual muniz by confrontation Neck Neck: Yes supple and Yes no JVD Resp Effort & Inspection: normal respiratory effort and respiratory effort not decreased Auscultation: rhonchi Cardio Palpation: no palpable S3 and no palpable S4 Heart sounds: no rubs GI Inspection: Yes normal to inspection Palpation (GI): Soft to palpation Percussion: Yes normal to percussion Auscultation: normal bowel sounds General: Yes no CVA tenderness Back/Spine/Pelvis Back: no CVA tenderness Skin General skin exam: no petechiae and no purpura Neuro General: patient oriented x3 and no focal motor deficits Extrem General: No clubbing and No edema Results Reviewed Nephrology Results: Hgb 15.2 g/dl (14.0-18.0) 01/07/24 WBC 6.7 X10*3/uL (4.8-10.8) 01/07/24 Plt Count 232 X10*3/uL (160-400) 01/07/24 Sodium 139 mmol/L (135-145) 01/07/24 Potassium 3.9 mmol/L (3.3-5.1) 01/07/24 Chloride 105 mmol/L (96-108) 01/07/24 Carbon Dioxide 24 mmol/L (22-29) 01/07/24 BUN 22 mg/dL (9-16) H 01/07/24 Creatinine 0.92 mg/dL (0.5-1.4) 01/07/24 Calcium 9.7 mg/dL (8.4-10.2) 01/07/24 Urine Protein 30 (1+) mg/dL (Neg-Trace) H 01/07/24 Urine Creatinine 101.38 mg/dL 01/07/24 Assessment & Plan Assessment & Plan (1) Albuminuria: Comment: Albuminuria in the setting of obesity and diabetes mellitus Code(s): R80.9 - Proteinuria, unspecified Category: Medical Plan: Leah is a 58-year-old man with a history of obesity and longstanding diabetes mellitus with proteinuria. While he was obese the urine microalbumin creatinine ratio was 47. However after losing weight the urine protein excretion is in gradually increased to 611. I believe this is primarily due to underlying diabetes mellitus than obesity. Renal function stable. Goal is to slow the progression of renal disease. He will benefit from an MOHIT inhibitor or ARB. Keep losartan 25 mg daily for now Urine protein excretion has decreased. Protein creatinine ratio has decreased from 1012 down to 270. At present blood pressure is well controlled. Continue with both metoprolol and verapamil since these are being used for rate control in the setting of atrial fibrillation. Encouraged him to stay on low-sodium diet He should monitor his blood pressure at home. We will monitor urine protein excretion. (2) DMII (diabetes mellitus, type 2): Code(s): E11.9 - Type 2 diabetes mellitus without complications Category: Medical Qualifiers: Diabetes mellitus complication detail: with diabetic microalbuminuria Diabetes mellitus complication status: with kidney complications Diabetes mellitus retirement insulin use: without intermediate project manager use Qualified Code(s): E11.29 - Type 2 diabetes mellitus with other diabetic kidney complication; R80.9 - Proteinuria, unspecified Plan: Maintain A1c less than 7% He will benefit from SGLT2 inhibitor Orders: Orders Basic Metabolic Panel 3 Months E11. - Type 2 diabetes mellitus with other diabetic kidney complication, R80.9 - Proteinuria, unspecified Total Protein Urine Random 3 Months . - Type 2 diabetes mellitus with other diabetic kidney complication, R80.9 - Proteinuria, unspecified Creatinine Urine 3 Months E11. - Type 2 diabetes mellitus with other diabetic kidney complication, R80.9 - Proteinuria, unspecified UA and rflx microscopic 3 Months E11. - Type 2 diabetes mellitus with other diabetic kidney complication, R80.9 - Proteinuria, unspecified Coding Level of Care Code Est Pt Level 4 (46472) Diagnoses Albuminuria R80.9 Type 2 diabetes mellitus with diabetic microalbuminuria, without long-term current use of insulin .; R80.9 Diabetes mellitus complication detail: with diabetic microalbuminuria Diabetes mellitus complication status: with kidney complications Diabetes mellitus retirement insulin use: without retirement use
== END 2024-01-07 11:39 | disposition home or self-care (01) ==
PROVIDERS: PCP Physician Assistant; Visit Provider Internal Medicine Hypertension Specialist
DX: R80.9 Proteinuria, unspecified (principal); E11.29 Type 2 diabetes mellitus with other diabetic kidney complication
CPT/HCPCS: 99214

== ENCOUNTER 2024-04-08 11:29 | Outpatient (AMB) | payer OTHER, SELFPAY ==
--- NOTE | 2024-04-08 11:23 | HO.NEPHOV_ITS ---
Vital Signs 04/08/24 11:25 Height 6 ft Weight 233 lb BMI 31.6 Intake Visit Reasons: Albuminuria/ Conf Messenger Copy Required: No Accompanied by: Self / Same As Patient Allergies No Known Allergies Allergy (Verified 04/08/24 11:23) Medication List - Last Reconciled 04/08/24 by Jay Negron MD acetaminophen-codeine 300-30 mg tabs PO DAILY PRN apixaban 5 mg PO BID 90 days bisacodyl (Dulcolax (bisacodyl)) 20 mg (4 x 5 mg) PO ONCE PRN 1 day flash glucose scanning reader (FreeStyle Manda 2 [place]) As directed flash glucose sensor (FreeStyle Manda 14 Day Sensor kit) As directed - covering for Branden Del Cid flash glucose sensor (FreeStyle Manda 2 Sensor kit) As directed lancets (FreeStyle Lancets) As directed 2 times per day losartan 25 mg PO DAILY metformin 500 mg PO DAILY 90 days metoprolol succinate ER 100 mg PO DAILY 90 days usicjfjwurbo-bap-ihbj-FA-vit K 45 mg iron- 800 mcg-120 mcg (Bariatric Multivitamins) caps PO polyethylene glycol 3350 (Miralax) 238 grams PO ONCE PRN 1 day Synthroid (levothyroxine) 25 mcg PO DAILY 90 days NS tirzepatide (Mounjaro) 5 mg (0.5 mL) subcut QWEEK 4 weeks verapamil ER 240 mg PO DAILY 90 days HPI Comments Details: Colton is a 58-year-old man with a history of diabetes mellitus for more than 2 0 years along with significant obesity. He underwent gastric bypass surgery in 2021. He lost about 150 lb Back in 2021 he had a urine microalbumin creatinine ratio of 22. Which has gradually increased to 611 as of June 2023 and hence this referral. Serum creatinine has been stable around 0.8 mg/dL. He has a history of atrial fibrillation and currently on metoprolol and verapamil for both rate control and management of hypertension. In addition he is on hydrochlorothiazide 25 mg a day. At present he has no specific complaints like shortness of breath chest pain nausea vomiting leg edema. No polyuria polydipsia. Parth has been added Lost 14 lbs [facility] Medical History (Updated 01/07/24 @ 13:14 by Quique Del Cid PA-C) VILMA (obstructive sleep apnea) Diabetes mellitus Cholelithiasis Congenital intra-abdominal adhesions Liver fibrosis Steatosis, liver BMI 39.0-39.9,adult Obesity COVID-19 vaccine series completed Major depressive disorder, recurrent, mild Preoperative cardiovascular examination Persistent atrial fibrillation Vitamin B1 deficiency Verruca Colon cancer screening Exposure to COVID-19 virus Herniated cervical disc Hypothyroidism Atrial fibrillation Hyperlipidemia Sleep apnea with use of continuous positive airway pressure (CPAP) Hypertension Insulin dependent type 1 diabetes mellitus Surgical History S/P gastric bypass History of repair of hiatal hernia History of cardioversion Family History Father Afib CVA (cerebral vascular accident) Mother CVA (cerebral vascular accident) Afib Social History Household Members Other:: Housing: Condominium Are you a primary intensive care anaesthetist to a significant other at home: No Do you presently have visiting nurse or other home services: No Alcohol intake: current Alcohol intake frequency: does not drink Patient Tobacco Use Status: Never used Tobacco e-Cigarette/Vaping Use: Never Used Second Hand Smoke Exposure: No service: No Current occupational status: unemployed Current occupation: Medical Insurance Cognitive needs: No Hearing needs: No Vision needs: Yes Physical Exam Vital Signs: BMI result Body Mass Index 31.6 Const General: comfortable; No acute distress Orientation/consciousness: patient oriented x3 Eyes General: appearance normal, both eyes and all related structures Visual Muniz: normal visual muniz by confrontation Neck Neck: Yes supple and Yes no JVD Resp Effort & Inspection: normal respiratory effort and respiratory effort not decreased Auscultation: rhonchi Cardio Palpation: no palpable S3 and no palpable S4 Heart sounds: no rubs GI Inspection: Yes normal to inspection Palpation (GI): Soft to palpation Percussion: Yes normal to percussion Auscultation: normal bowel sounds General: Yes no CVA tenderness Back/Spine/Pelvis Back: no CVA tenderness Skin General skin exam: no petechiae and no purpura Neuro General: patient oriented x3 and no focal motor deficits Extrem General: No clubbing and No edema Results Reviewed Nephrology Results: Hgb 15.2 g/dl (14.0-18.0) 01/07/24 WBC 6.7 X10*3/uL (4.8-10.8) 01/07/24 Plt Count 232 X10*3/uL (160-400) 01/07/24 Sodium 139 mmol/L (135-145) 01/07/24 Potassium 3.9 mmol/L (3.3-5.1) 01/07/24 Chloride 105 mmol/L (96-108) 01/07/24 Carbon Dioxide 24 mmol/L (22-29) 01/07/24 BUN 22 mg/dL (9-16) H 01/07/24 Creatinine 0.92 mg/dL (0.5-1.4) 01/07/24 Calcium 9.7 mg/dL (8.4-10.2) 01/07/24 Urine Protein 30 (1+) mg/dL (Neg-Trace) H 01/07/24 Urine Creatinine 101.38 mg/dL 01/07/24 Assessment & Plan Assessment & Plan (1) Albuminuria: Comment: Albuminuria in the setting of obesity and diabetes mellitus Code(s): R80.9 - Proteinuria, unspecified Category: Medical Plan: Leah is a 58-year-old man with a history of obesity and longstanding diabetes mellitus with proteinuria. While he was obese the urine microalbumin creatinine ratio was 47. However after losing weight the urine protein excretion is in gradually increased to 611. I believe this is primarily due to underlying diabetes mellitus than obesity. Renal function stable. Goal is to slow the progression of renal disease. He will benefit from an MOHIT inhibitor or ARB. Keep losartan 25 mg daily for now Urine protein excretion has decreased. Protein creatinine ratio has decreased from 1012 down to 270. At present blood pressure is well controlled. Continue with both metoprolol and verapamil since these are being used for rate control in the setting of atrial fibrillation. Encouraged him to stay on low-sodium diet He should monitor his blood pressure at home. (2) DMII (diabetes mellitus, type 2): Code(s): E11.9 - Type 2 diabetes mellitus without complications Category: Medical Qualifiers: Diabetes mellitus senior living insulin use: without buttermilk drier operator use Diabetes mellitus complication status: with kidney complications Diabetes mellitus complication detail: with diabetic microalbuminuria Qualified Code(s): E11.29 - Type 2 diabetes mellitus with other diabetic kidney complication; R80.9 - Proteinuria, unspecified Plan: Maintain A1c less than 7% He will benefit from SGLT2 inhibitor Currently on Parth will monitor urine protein Orders: Orders Total Protein Urine Random 3 Weeks R80.9 - Proteinuria, unspecified Basic Metabolic Panel 3 Weeks R80.9 - Proteinuria, unspecified Creatinine Urine 3 Weeks R80.9 - Proteinuria, unspecified Medications: Refilled losartan 25 mg PO DAILY 90 tabs 3RF Coding Level of Care Code Tele New Pt Level 3 (08929) Diagnoses Albuminuria R80.9 Type 2 diabetes mellitus with diabetic microalbuminuria, without long-term current use of insulin E11.29; R80.9 Diabetes mellitus buttermilk drier operator insulin use: without buttermilk drier operator use Diabetes mellitus complication status: with kidney complications Diabetes mellitus complication detail: with diabetic microalbuminuria
[2024-04-08 11:25] VITALS: BMI 31.6
== END 2024-04-08 13:29 | disposition home or self-care (01) ==
LOC: HO.HKA 11:30
PROVIDERS: PCP Physician Assistant; Visit Provider Internal Medicine Hypertension Specialist
DX: E11.29 Type 2 diabetes mellitus with other diabetic kidney complication (principal); R80.9 Proteinuria, unspecified
CPT/HCPCS: 99213

== ENCOUNTER → 2024-04-08 11:29 | Outpatient (BNVA) | payer OTHER, SELFPAY | PROVIDERS: PCP Physician Assistant; Visit Provider Internal Medicine Hypertension Specialist | DX: E11.29 Type 2 diabetes mellitus with other diabetic kidney complication (principal); R80.9 Proteinuria, unspecified; E66.9 Obesity, unspecified; Z68.31 Body mass index [BMI] 31.0-31.9, adult | CPT/HCPCS: 99212 ==

== ENCOUNTER 2024-04-10 09:18 | Outpatient (AMB) | payer OTHER, SELFPAY ==
--- NOTE | 2024-04-10 09:19 | MHC.PC.OV ---
Intake Visit Reasons: f/u DMII- weight ( telehealth) Intake Note: Patient is here to follow up on DM, Weight. Agricultural Equipment Salesperson Required: No Freelance Court Stenographer: Not Required per policy Accompanied by: Self / Same As Patient Allergies No Known Allergies Allergy (Verified 04/10/24 09:32) Medication List - Last Reconciled 04/10/24 by Quique Del Cid PA-C acetaminophen-codeine 300-30 mg tabs PO DAILY PRN apixaban 5 mg PO BID 90 days bisacodyl (Dulcolax (bisacodyl)) 20 mg (4 x 5 mg) PO ONCE PRN 1 day blood sugar diagnostic (FreeStyle Lite Strips) Test blood sugar three time a day flash glucose scanning reader (FreeStyle Manda 2 [place]) As directed flash glucose sensor (FreeStyle Manda 14 Day Sensor kit) As directed - covering for Branden Del Cid flash glucose sensor (FreeStyle Manda 2 Sensor kit) As directed lancets (FreeStyle Lancets) As directed 2 times per day losartan 25 mg PO DAILY metformin 500 mg PO DAILY 90 days metoprolol succinate ER 100 mg PO DAILY 90 days tdjhcapnkdda-lli-qnoo-FA-vit K 45 mg iron- 800 mcg-120 mcg (Bariatric Multivitamins) caps PO polyethylene glycol 3350 (Miralax) 238 grams PO ONCE PRN 1 day Synthroid (levothyroxine) 25 mcg PO DAILY 90 days NS tirzepatide (Mounjaro) 5 mg (0.5 mL) subcut QWEEK 4 weeks verapamil ER 240 mg PO DAILY 90 days Tobacco use date assessed: 07/02/23 Dental Screening Dental Screen Date: 07/02/23 HPI f/u DMII- weight ( telehealth) HPI Details Patient is a 58-year-old male being evaluated today via telephone Of note recently had hammertoe surgery and has been a little more physically inactive lately. .. AFIB: Continues on rate control with verapamil?, metoprolol and ELiquis?. He denies any overt signs of bleeding.. ? Is being? followed by a cold press loader while in [place] whom attempted cardioversion though was unsuccessful.? . Type 2 diabetic: Has lost weight since last office visit. Most recent fasting blood sugar and A1c stable. A1c is 6.2. He continues on metformin and Mounjaro. Of note does have microvascular complication with nephropathy- elevated microalbuminuria. Has followed up with Nephrology and was started on losartan --> of note has been having difficulty with a continues glucose monitor giving him false readings. He would like to return back to using fingerstick glucose .. Hypothyroidism:? Most recent TSH acceptable, continues on levothyroxine 50 mcg.? Laboratory Tests 09/26/23 01/07/24 01/07/24 09:38 06:22 06:31 Fasting Glucose 110 H Hemoglobin A1c % 6.2 H Cholesterol 159 LDL Cholesterol, C alc 75 TSH 2.79 Urine Microalbumin 1332.0 274.0 [facility] Medical History VILMA (obstructive sleep apnea) Diabetes mellitus Cholelithiasis Congenital intra-abdominal adhesions Liver fibrosis Steatosis, liver BMI 39.0-39.9,adult Obesity COVID-19 vaccine series completed Major depressive disorder, recurrent, mild Preoperative cardiovascular examination Persistent atrial fibrillation Vitamin B1 deficiency Verruca Colon cancer screening Exposure to COVID-19 virus Herniated cervical disc Hypothyroidism Atrial fibrillation Hyperlipidemia Sleep apnea with use of continuous positive airway pressure (CPAP) Hypertension Insulin dependent type 1 diabetes mellitus Surgical History History of toe surgery S/P gastric bypass History of repair of hiatal hernia History of cardioversion Family History Father Afib CVA (cerebral vascular accident) Mother CVA (cerebral vascular accident) Afib Social History Household Members Other:: Housing: Condominium Are you a primary childcare teacher to a significant other at home: No Do you presently have visiting nurse or other home services: No Alcohol intake: current Alcohol intake frequency: does not drink Patient Tobacco Use Status: Never used Tobacco e-Cigarette/Vaping Use: Never Used Second Hand Smoke Exposure: No service: No Current occupational status: unemployed Current occupation: Medical Insurance Cognitive needs: No Hearing needs: No Vision needs: Yes Questionnaire Thrive Questionnaire Date Thrive assessed: 07/02/23 AUDIT C Alcohol Use Questionnaire (AUDIT-C) 2. How many drinks containing alcohol do you have on a typical day when you are drinking?: 1 or 2 3. How often do you have six or more drinks on one occasion?: Never Total Score: 0 BOGDAN-7 AMB Questionnaire BOGDAN-7 Date BOGDAN - 7 assessed: 07/02/23 Source: Developed by Drs. Ethan Lawson, Jaimie Wilson, Ahmet Glynn and colleagues, with an educational jermaine from [employer]. Review of Systems Const Denies headache(s) Eyes Denies loss of vision ENT Denies vertigo, Denies dizziness, Denies headache(s) and Denies sore throat Card Denies chest pain, Denies leg edema and Denies lightheadedness Resp Denies cough, Denies hemoptysis and Denies wheezing GI Denies abdominal pain, Denies melena, Denies constipation, Denies diarrhea and Denies vomiting Denies dysuria, Denies urinary frequency and Denies urinary urgency Musc Denies arthralgias, Denies joint swelling, Denies numbness and Denies tingling Neuro Denies behavioral changes, Denies vertigo, Denies dizziness, Denies headache(s), Denies loss of vision, Denies memory loss, Denies numbness and Denies tingling Psych Denies anxiety, Denies behavioral changes, Denies depression, Denies memory loss and Denies panic attacks Roland/Lymph Denies easy bleeding and Denies easy bruising Aller/Immun Denies wheezing Physical exam (Primary Care) Tobacco/Smoking Status: Tobacco use Status Tobacco use date assessed 07/02/23 04/10/24 09:27 Patient Tobacco Use Status Never used Tobacco 04/10/24 09:27 e-Cigarette/Vaping Use Never Used 04/10/24 09:27 Thrive Assessment: Date of Thrive Assessment Date Thrive assessed 07/02/23 04/10/24 09:27 Telehealth Telehealth Telehealth Platform: Telephone Location of provider rendering services: practice address Location of patient: address on file Patient Identification confirmed using: Name, : Yes Telehealth method: voice only Patient verbally consented to treatment: Yes Patient verbally consented to billing insurance company: Yes Patient informed of any privacy concerns related to visit: Yes Minutes spent on Phone/Video with Pt.: 11 Coding Level of Care Code Tele Est Pt Level 4 (86814) Diagnoses Type 2 diabetes mellitus with diabetic microalbuminuria, without long-term current use of insulin E11.29; R80.9 Diabetes mellitus ocean transportation intermediary insulin use: without skilled nursing use Diabetes mellitus complication status: with kidney complications Diabetes mellitus complication detail: with diabetic microalbuminuria Permanent atrial fibrillation I48.21 Atrial fibrillation type: permanent Acquired hypothyroidism E03.9 Hypothyroidism type: acquired Essential hypertension I10 Assessment & Plan Assessment & Plan (1) DMII (diabetes mellitus, type 2): Code(s): E11.9 - Type 2 diabetes mellitus without complications Category: Medical Qualifiers: Diabetes mellitus skilled nursing insulin use: without skilled nursing use Diabetes mellitus complication status: with kidney complications Diabetes mellitus complication detail: with diabetic microalbuminuria Qualified Code(s): E11.29 - Type 2 diabetes mellitus with other diabetic kidney complication; R80.9 - Proteinuria, unspecified Plan: Patient's type 2 diabetes has been well controlled. Will continue him on his current dose of metformin and GLP 1 weekly. Goal A1c is to be below 6.5 (2) Atrial fibrillation: Comment: on eliquis -he has discontinued for procedures previously with no issues Code(s): I48.91 - Unspecified atrial fibrillation Category: Medical Qualifiers: Atrial fibrillation type: permanent Qualified Code(s): I48.21 - Permanent atrial fibrillation Plan: Continues on rate control with metoprolol and verapamil. Anticoagulated with Eliquis without any overt signs of bleeding reported. (3) Hypothyroidism: Code(s): E03.9 - Hypothyroidism, unspecified Category: Medical Qualifiers: Hypothyroidism type: acquired Qualified Code(s): E03.9 - Hypothyroidism, unspecified Plan: Patient's most recent TSH stable. Continues on levothyroxine 25 mcg daily. Will continue to follow TSH to assure normal. (4) Essential hypertension: Code(s): I10 - Essential (primary) hypertension Category: Medical Plan: Patient reports his blood pressure has been stable. Has been started on losartan 25 mg by his clinical trial specialist due to microalbuminuria noted. Orders: Orders TSH reflex Free T4 Today E03.9 - Hypothyroidism, unspecified Complete Blood Count no Diff Today I10 - Essential (primary) hypertension Lipid Panel Today E78.2 - Mixed hyperlipidemia Comprehensive [place]. Panel Fast Today I10 - Essential (primary) hypertension Medications: New blood-glucose meter (FreeStyle Lite Meter kit) testing three times per day 1 ea 0RF E11.29 - Type 2 diabetes mellitus with other diabetic kidney complication, R80.9 - Proteinuria, unspecified blood sugar diagnostic (FreeStyle Lite Strips) Test blood sugar three times per day 100 ea 1RF E11.29 - Type 2 diabetes mellitus with other diabetic kidney complication, R80.9 - Proteinuria, unspecified Changed From lancets (FreeStyle Lancets) As directed 2 times per day 100 ea 0RF E11.29 - Type 2 diabetes mellitus with other diabetic kidney complication, R80.9 - Proteinuria, unspecified To lancets (FreeStyle Lancets) As directed 3 times per day 100 ea 1RF E11.29 - Type 2 diabetes mellitus with other diabetic kidney complication, R80.9 - Proteinuria, unspecified Patient Instructions: Goal: Blood pressure to remain below 140/90, A1c to remain below 6.5 Barriers: Adherence to physical activity and healthy eating habits
== END 2024-04-10 10:06 | disposition home or self-care (01) ==
LOC: HO.HMCH 09:19
PROVIDERS: PCP Physician Assistant; Visit Provider Physician Assistant
DX: E11.29 Type 2 diabetes mellitus with other diabetic kidney complication (principal); R80.9 Proteinuria, unspecified; I48.21 Permanent atrial fibrillation; E03.9 Hypothyroidism, unspecified; I10 Essential (primary) hypertension

== ENCOUNTER → 2024-04-10 09:18 | Outpatient (BNVA) | payer OTHER, SELFPAY | PROVIDERS: PCP Physician Assistant; Visit Provider Physician Assistant ==

== ENCOUNTER 2024-04-15 07:41 | Outpatient (REF) | payer OTHER, SELFPAY ==
[2024-04-15 08:24] LABS: Appearance Urine Clear; Color Urine Yellow; Glucose Urine UA Negative (Negative); Leukocyte Esterase Urine Negative (Negative); Nitrite Urine Negative (Negative); PH 5.5 (5.0-9.0); Specific Gravity - Urine 1.015 (1.005-1.025); UMIC TRIGGER UA YES; Urine Blood Negative (Negative); Urine Ketones Negative (Negative); Urine Protein 30 (1+) mg/dL (Neg-Trace)
[2024-04-15 08:27] LABS: Bacteria Urine None Seen (None Seen); Hyaline Casts Urine 0-2 /LPF (0-2); RBC Urine 0-2 /HPF (0-2); Squamous Epithelial Cell Urine 0-2 /HPF (0-2); WBC Urine 0-5 /HPF (0-5)
[2024-04-15 08:54] LABS: Hematocrit 41.7 % (42.0-52.0); Hemoglobin 14.2 g/dl (14.0-18.0); Mean Corpuscular HGB Conc 34.1 g/dl (31.0-36.0); Mean Corpuscular Hemoglobin 28.3 pg (27.0-33.0); Mean Corpuscular Volume 83.1 fL (80.0-98.0); Mean Platelet Volume 10.3 fL (9.4-12.4); Platelet Count 258 X10*3/uL (160-400); Red Blood Count 5.02 X10*6/uL (4.60-5.80); Red Cell Distribution Width 13.6 % (11.0-16.0); White Blood Count 5.2 X10*3/uL (4.8-10.8)
[2024-04-15 09:23] LABS: Creatinine Urine 115.87 mg/dL; Total Protein Urine Random 37 mg/dL (<12)
[2024-04-15 09:47] LABS: TSH reflex Free T4 3.12 uIU/mL (0.32-4.0)
[2024-04-15 10:09] LABS: Alanine Aminotransferase 27 U/L (0-40); Albumin Level 4.4 g/dL (3.5-5.0); Alkaline Phosphatase 100 U/L (39-117); Anion Gap 12 (12-20); Aspartate Amino Transferase 26 U/L (5-37); Bilirubin Total 0.7 mg/dL (0.0-1.0); Blood Urea Nitrogen 13 mg/dL (9-16); Calcium 9.8 mg/dL (8.4-10.2); Carbon Dioxide 25 mmol/L (22-29); Chloride 103 mmol/L (96-108); Cholesterol 154 mg/dL (<200); Estimated Glomerular Filt Rate > 60; Glucose Fasting 108 mg/dL (60-99); HDL Cholesterol 66 mg/dL (>40); LDL Cholesterol Calculated 70 mg/dL (<100); Potassium 3.3 mmol/L (3.3-5.1); Sodium 137 mmol/L (135-145); Total Protein 7.3 g/dL (6.5-8.0); Triglycerides 93 mg/dL (<150)
== END 2024-04-15 07:42 | disposition home or self-care (01) ==
LOC: HO.LAB 07:41
PROVIDERS: Absent Provider Internal Medicine Hypertension Specialist; PCP Physician Assistant; Visit Provider Physician Assistant
DX: N05.9 Unspecified nephritic syndrome with unspecified morphologic changes (principal); R80.9 Proteinuria, unspecified; E11.29 Type 2 diabetes mellitus with other diabetic kidney complication; E11.9 Type 2 diabetes mellitus without complications; I10 Essential (primary) hypertension; E03.9 Hypothyroidism, unspecified; E78.2 Mixed hyperlipidemia
CPT/HCPCS: 36415; 80048; 80053; 80061; 81001; 82570; 84156; 84443; 85027

== ENCOUNTER 2024-08-16 09:09 | Outpatient (REF) | payer OTHER, SELFPAY ==
[2024-08-16 10:31] LABS: Hematocrit 36.7 % (42.0-52.0); Hemoglobin 12.1 g/dl (14.0-18.0); Mean Corpuscular Hemoglobin 26.2 pg (27.0-33.0); Mean Corpuscular Volume 79.6 fL (80.0-98.0); Mean Platelet Volume 9.9 fL (9.4-12.4); Platelet Count 241 X10*3/uL (160-400); Red Blood Count 4.61 X10*6/uL (4.60-5.80); Red Cell Distribution Width 15.4 % (11.0-16.0); White Blood Count 4.8 X10*3/uL (4.8-10.8)
[2024-08-16 11:04] LABS: Alanine Aminotransferase 30 U/L (0-40); Albumin Level 4.1 g/dL (3.5-5.0); Alkaline Phosphatase 98 U/L (39-117); Anion Gap 11 (12-20); Aspartate Amino Transferase 25 U/L (5-37); Bilirubin Total 0.5 mg/dL (0.0-1.0); Blood Urea Nitrogen 18 mg/dL (9-16); Calcium 9.2 mg/dL (8.4-10.2); Carbon Dioxide 22 mmol/L (22-29); Chloride 110 mmol/L (96-108); Cholesterol 138 mg/dL (<200); Estimated Glomerular Filt Rate > 60; Glucose Fasting 87 mg/dL (60-99); HDL Cholesterol 62 mg/dL (>40); LDL Cholesterol Calculated 67 mg/dL (<100); Sodium 139 mmol/L (135-145); Total Protein 6.9 g/dL (6.5-8.0); Triglycerides 47 mg/dL (<150)
[2024-08-16 11:23] LABS: Prostate Specific Antigen Scr 0.65 ng/mL (<0.05-4.0)
[2024-08-16 11:25] LABS: TSH reflex Free T4 1.79 uIU/mL (0.32-4.0)
[2024-08-16 12:02] LABS: Microalbum/Creatinine Ratio Ur 163.5 ug/mg cr (<30)
== END 2024-08-16 09:10 | disposition home or self-care (01) ==
LOC: HO.LAB 09:09
PROVIDERS: PCP Physician Assistant; Visit Provider Physician Assistant
DX: E11.29 Type 2 diabetes mellitus with other diabetic kidney complication (principal); E11.9 Type 2 diabetes mellitus without complications; Z12.5 Encounter for screening for malignant neoplasm of prostate; R80.9 Proteinuria, unspecified; E03.9 Hypothyroidism, unspecified; E78.2 Mixed hyperlipidemia
CPT/HCPCS: 36415; 80053; 80061; 82043; 82570; 84153; 84443; 85027

== ENCOUNTER 2024-09-02 09:17 | Outpatient (AMB) | payer OTHER, SELFPAY ==
--- NOTE | 2024-09-02 09:16 | HO.NEPHOV_ITS ---
Vital Signs 09/02/24 09:17 Height 6 ft Weight 232 lb BMI 31.5 Intake Visit Reasons: Albuminuria/ CONF Professor Of Surgery Required: No Accompanied by: Self / Same As Patient Allergies No Known Allergies Allergy (Verified 09/02/24 09:17) Medication List - Last Reconciled 09/02/24 by Jay Negron MD acetaminophen-codeine 300-30 mg tabs PO DAILY PRN apixaban 5 mg PO BID 90 days bisacodyl (Dulcolax (bisacodyl)) 20 mg (4 x 5 mg) PO ONCE PRN 1 day blood sugar diagnostic (FreeStyle Lite Strips) Test blood sugar three times per day blood-glucose meter (FreeStyle Lite Meter kit) testing three times per day blood-glucose meter (FreeStyle Lite Meter kit) As directed flash glucose scanning reader (FreeStyle Manda 2 [place]) As directed flash glucose sensor (FreeStyle Manda 14 Day Sensor kit) As directed - covering for Branden Nehemias flash glucose sensor (FreeStyle Manda 2 Sensor kit) As directed lancets (FreeStyle Lancets) As directed 3 times per day losartan 25 mg PO DAILY metformin 500 mg PO DAILY 90 days metoprolol succinate ER 100 mg PO DAILY 90 days cssylkbtuxbx-lpp-botu-FA-vit K 45 mg iron- 800 mcg-120 mcg (Bariatric Multiv itamins) caps PO polyethylene glycol 3350 (Miralax) 238 grams PO ONCE PRN 1 day Synthroid (levothyroxine) 25 mcg PO DAILY 90 days NS tirzepatide (Mounjaro) 7.5 mg (0.5 mL) subcut QWEEK verapamil ER 240 mg PO DAILY 90 days HPI Comments Details: Colton is a 58-year-old man with a history of diabetes mellitus for more than 20 years along with significant obesity. He underwent gastric bypass surgery in 2021. He lost about 150 lb Back in 2021 he had a urine microalbumin creatinine ratio of 22. Which has gradually increased to 611 as of June 2023 and hence this referral. Serum creatinine has been stable around 0.8 mg/dL. He has a history of atrial fibrillation and currently on metoprolol and verapamil for both rate control and management of hypertension. In addition he is on hydrochlorothiazide 25 mg a day. At present he has no specific complaints like shortness of breath chest pain nausea vomiting leg edema. No polyuria polydipsia. 1028/ Maunjaro has been added;Lost 14 lbs 09/02/24 Still on Maunjaro Lost 10 lbs Home BP seems OK PFSH Medical History (Updated 09/02/24 @ 09:27 by Jay Negron MD) Obesity (BMI 30-39.9) VILMA (obstructive sleep apnea) Diabetes mellitus Cholelithiasis Congenital intra-abdominal adhesions Liver fibrosis Steatosis, liver BMI 39.0-39.9,adult Obesity COVID-19 vaccine series completed Major depressive disorder, recurrent, mild Preoperative cardiovascular examination Persistent atrial fibrillation Vitamin B1 deficiency Verruca Colon cancer screening Exposure to COVID-19 virus Herniated cervical disc Hypothyroidism Atrial fibrillation Hyperlipidemia Sleep apnea with use of continuous positive airway pressure (CPAP) Hypertension Insulin dependent type 1 diabetes mellitus Surgical History History of toe surgery S/P gastric bypass History of repair of hiatal hernia History of cardioversion Family History Father Afib CVA (cerebral vascular accident) Mother CVA (cerebral vascular accident) Afib Social History Household Members Other:: Housing: Condominium Are you a primary career development manager to a significant other at home: No Do you presently have visiting nurse or other home services: No Alcohol intake: current Alcohol intake frequency: does not drink Patient Tobacco Use Status: Never used Tobacco e-Cigarette/Vaping Use: Never Used Second Hand Smoke Exposure: No service: No Current occupational status: unemployed Current occupation: Medical Insurance Cognitive needs: No Hearing needs: No Vision needs: Yes Physical Exam Vital Signs: BMI result Body Mass Index 31.5 Telehealth Telehealth Telehealth Platform: Telephone Location of provider rendering services: practice address Location of patient: address on file Patient Identification confirmed using: Name, : Yes Telehealth method: voice only Patient verbally consented to treatment: Yes Patient verbally consented to billing insurance company: Yes Patient informed of any privacy concerns related to visit: Yes Results Reviewed Nephrology Results: Hgb 12.1 g/dl (14.0-18.0) L 08/16/24 WBC 4.8 X10*3/uL (4.8-10.8) 08/16/24 Plt Count 241 X10*3/uL (160-400) 08/16/24 Sodium 139 mmol/L (135-145) 08/16/24 Potassium 4.0 mmol/L (3.3-5.1) 08/16/24 Chloride 110 mmol/L (96-108) H 08/16/24 Carbon Dioxide 22 mmol/L (22-29) 08/16/24 BUN 18 mg/dL (9-16) H 08/16/24 Creatinine 0.88 mg/dL (0.5-1.4) 08/16/24 Calcium 9.2 mg/dL (8.4-10.2) 08/16/24 Urine Protein 30 (1+) mg/dL (Neg-Trace) H 04/15/24 Urine Creatinine 154.10 mg/dL 08/16/24 Assessment & Plan Assessment & Plan (1) DMII (diabetes mellitus, type 2): Code(s): E11.9 - Type 2 diabetes mellitus without complications Category: Medical Qualifiers: Diabetes mellitus complication detail: with diabetic microalbuminuria Diabetes mellitus complication status: with kidney complications Diabetes mellitus buttermaker continuous churn insulin use: without assisted use Qualified Code(s): E11.29 - Type 2 diabetes mellitus with other diabetic kidney complication; R80.9 - Proteinuria, unspecified Plan: Maintain A1c less than 7% He will benefit from SGLT2 inhibitor Currently on Maunjaneris will monitor urine protein (2) Proteinuria: Code(s): R80.9 - Proteinuria, unspecified Category: Medical (3) Albuminuria: Comment: Albuminuria in the setting of obesity and diabetes mellitus Code(s): R80.9 - Proteinuria, unspecified Category: Medical Plan Colton is a 59-year-old man with a history of obesity and longstanding diabetes mellitus with proteinuria. While he was obese the urine microalbumin creatinine ratio was 47. However after losing weight the urine protein excretion is in gradually increased to 611. I believe this is primarily due to underlying diabetes mellitus than obesity. Renal function stable. Goal is to slow the progression of renal disease. He will benefit from an MOHIT inhibitor or ARB. Keep losartan 25 mg daily for now Urine protein excretion has decreased. Protein creatinine ratio has decreased from 1012 down to 270. to 163 At present blood pressure is well controlled. Continue with both metoprolol and verapamil since these are being used for rate control in the setting of atrial fibrillation. Encouraged him to stay on low-sodium diet He should monitor his blood pressure at home. Medications: Refilled losartan 25 mg PO DAILY 90 tabs 3RF Coding Level of Care Code Tele Est Pt Level 3 (06221) Diagnoses Type 2 diabetes mellitus with diabetic microalbuminuria, without long-term current use of insulin E11.29; R80.9 Diabetes mellitus complication detail: with diabetic microalbuminuria Diabetes mellitus complication status: with kidney complications Diabetes mellitus buttermaker continuous churn insulin use: without assisted use Proteinuria R80.9 Albuminuria R80.9 Time Spent (min) 12
[2024-09-02 09:17] VITALS: BMI 31.5
== END 2024-09-02 12:13 | disposition home or self-care (01) ==
LOC: HO.HKA 09:17
PROVIDERS: PCP Physician Assistant; Visit Provider Internal Medicine Hypertension Specialist
DX: E11.29 Type 2 diabetes mellitus with other diabetic kidney complication (principal); R80.9 Proteinuria, unspecified
CPT/HCPCS: 99213

== ENCOUNTER → 2024-10-06 12:58 | Outpatient (BNVA) | payer OTHER, SELFPAY | PROVIDERS: PCP Physician Assistant; Visit Provider Physician Assistant ==

== ENCOUNTER 2024-10-24 13:30 | Outpatient (REF) | payer OTHER, SELFPAY ==
[2024-10-24 14:34] LABS: Appearance Urine Cloudy; Color Urine Dark Yellow; Glucose Urine UA Negative (Negative); Leukocyte Esterase Urine Negative (Negative); Nitrite Urine Negative (Negative); PH 5.5 (5.0-9.0); Specific Gravity - Urine >= 1.030 (1.005-1.025); Urine Blood Negative (Negative); Urine Ketones Trace mg/dL (Negative); Urine Protein Trace mg/dL (Neg-Trace)
[2024-10-24 14:37] LABS: Anion Gap 11 (12-20); Blood Urea Nitrogen 19 mg/dL (9-16); Calcium 9.5 mg/dL (8.4-10.2); Carbon Dioxide 23 mmol/L (22-29); Chloride 107 mmol/L (96-108); Estimated Glomerular Filt Rate > 60; Glucose Random 132 mg/dL (60-115); Potassium 4.4 mmol/L (3.3-5.1); Sodium 137 mmol/L (135-145)
[2024-10-24 15:25] LABS: Total Protein Urine Random 22 mg/dL (<12)
== END 2024-10-24 13:31 | disposition home or self-care (01) ==
LOC: HO.LAB 13:30
PROVIDERS: Internal Medicine Hypertension Specialist; PCP Physician Assistant; Visit Provider Physician Assistant
DX: E11.29 Type 2 diabetes mellitus with other diabetic kidney complication (principal); R80.9 Proteinuria, unspecified
CPT/HCPCS: 36415; 80048; 81003; 82570; 84156

== ENCOUNTER 2024-10-29 10:11 | Outpatient (REF) | payer OTHER, SELFPAY ==
[2024-10-29 11:38] LABS: INTERNATIONAL NORM RATIO 1.1 (0.9-1.1); Prothrombin Time 12.5 SEC (10.9-12.4)
[2024-10-29 11:45] LABS: Appearance Urine Clear; Color Urine Yellow; Glucose Urine UA Negative (Negative); Leukocyte Esterase Urine Negative (Negative); Nitrite Urine Negative (Negative); PH 5.5 (5.0-9.0); Urine Blood Negative (Negative); Urine Ketones Negative (Negative); Urine Protein Trace mg/dL (Neg-Trace)
[2024-10-29 13:31] LABS: Creatinine Urine 44.83 mg/dL
== END 2024-10-29 10:12 | disposition home or self-care (01) ==
LOC: HO.LAB 10:11
PROVIDERS: Internal Medicine; Internal Medicine Hypertension Specialist; PCP Physician Assistant; Visit Provider Physician Assistant
DX: E11.29 Type 2 diabetes mellitus with other diabetic kidney complication (principal); R80.9 Proteinuria, unspecified; I48.21 Permanent atrial fibrillation; E03.9 Hypothyroidism, unspecified; I10 Essential (primary) hypertension; R30.0 Dysuria; Z79.01 Long term (current) use of anticoagulants; Z79.84 Long term (current) use of oral hypoglycemic drugs; Z79.899 Other long term (current) drug therapy; Z98.890 Other specified postprocedural states
CPT/HCPCS: 36415; 81003; 82570; 83036; 85610; 96127; 99212

== ENCOUNTER 2024-10-29 10:11 | Outpatient (AMB) | payer OTHER, SELFPAY ==
--- NOTE | 2024-10-29 10:16 | A.OFFPC_ITS ---
Vital Signs 10/29/24 10:22 Height 6 ft Weight 229 lb 8 oz BMI 31.1 BP 122/82 Blood Pressure Location Lt brachial Position Sitting Pulse 53 Pulse Source Pulse Oximeter Temp 96.9 F Temp Source Temporal Artery Scan Pulse Oximetry (%) 98 Oxygen Delivery Method Room Air Intake Visit Reasons: Follow-up type 2 diabetes, weight check Cut Off Sawyer Required: No Accompanied by: Self / Same As Patient Allergies No Known Allergies Allergy (Verified 10/29/24 10:26) Medication List - Last Reconciled 10/29/24 by Quique Del Cid PA-C acetaminophen-codeine 300-30 mg tabs PO DAILY PRN apixaban 5 mg PO BID 90 days bisacodyl (Dulcolax (bisacodyl)) 20 mg (4 x 5 mg) PO ONCE PRN 1 day blood sugar diagnostic (FreeStyle Lite Strips) Test blood sugar three times per day blood-glucose meter (FreeStyle Lite Meter kit) testing three times per day blood-glucose meter (FreeStyle Lite Meter kit) As directed flash glucose scanning reader (FreeStyle Manda 2 [place]) As directed flash glucose sensor (FreeStyle Manda 14 Day Sensor kit) As directed - covering for Branden Del Cid flash glucose sensor (FreeStyle Manda 2 Sensor kit) As directed lancets (FreeStyle Lancets) As directed 3 times per day losartan 25 mg PO DAILY metformin 500 mg PO DAILY 90 days metoprolol succinate ER 100 mg PO DAILY 90 days loymsskshtlg-mgd-zliv-FA-vit K 45 mg iron- 800 mcg-120 mcg (Bariatric Multivitamins) caps PO polyethylene glycol 3350 (Miralax) 238 grams PO ONCE PRN 1 day Synthroid (levothyroxine) 25 mcg PO DAILY 90 days NS tirzepatide (Mounjaro) 7.5 mg (0.5 mL) subcut QWEEK verapamil ER 240 mg PO DAILY 90 days Tobacco use date assessed: 07/02/23 Dental Screening Dental Screen Date: 07/02/23 HPI Follow-up type 2 diabetes, weight check HPI Details Patient is a 59-year-old male here today for follow-up visit Obesity--> patient recently underwent a panniculectomy with Dr white. He has a at some complications with a seroma near the incision site with serosanguineous drainage. . Was seen at a local ER who did ultrasound confirming the seroma in the surgical area. This issue led to a temporary discontinuation of Eliquis. Despite restarting the medication, he experienced minor secretion episodes, prompting him to seek an expedited cardiology consultation to reassess his treatment plan for AFib. .. AFIB: Continues on rate control with verapamil?, metoprolol and ELiquis?. ? Is being? followed by a senior architectural designer while in [place] whom attempted cardioversion though was unsuccessful.? He is somewhat interested in speaking with a senior architectural designer about other options concerning treatment for his AFib. . Type 2 diabetic: Has lost weight since last office visit. Most recent fasting blood sugar and A1c stable. . He continues on metformin and Mounjaro. Of note does have microvascular complication with nephropathy- elevated microalbuminuria. Has followed up with Nephrology and was started on losartan --> of note has been having difficulty w ith a continues glucose monitor giving him false readings. He would like to return back to using fingerstick glucose .. Hypothyroidism:? Most recent TSH acceptable, continues on levothyroxine 50 mcg.? [facility] Medical History (Updated 10/29/24 @ 10:48 by Quique Del Cid PA-C) Obesity (BMI 30-39.9) VILMA (obstructive sleep apnea) Cholelithiasis Congenital intra-abdominal adhesions Liver fibrosis Steatosis, liver BMI 39.0-39.9,adult Obesity COVID-19 vaccine series completed Major depressive disorder, recurrent, mild Preoperative cardiovascular examination Persistent atrial fibrillation Vitamin B1 deficiency Verruca Colon cancer screening Exposure to COVID-19 virus Herniated cervical disc Hypothyroidism Atrial fibrillation Hyperlipidemia Sleep apnea with use of continuous positive airway pressure (CPAP) Hypertension Insulin dependent type 1 diabetes mellitus Surgical History (Updated 10/29/24 @ 10:47 by Quique Del Cid PA-C) History of toe surgery S/P gastric bypass History of repair of hiatal hernia History of cardioversion Family History Father Afib CVA (cerebral vascular accident) Mother CVA (cerebral vascular accident) Afib Social History Household Members Other:: Housing: Condominium Are you a primary pet care worker to a significant other at home: No Do you presently have visiting nurse or other home services: No Alcohol intake: current Alcohol intake frequency: does not drink Patient Tobacco Use Status: Never used Tobacco e-Cigarette/Vaping Use: Never Used Second Hand Smoke Exposure: No service: No Current occupational status: unemployed Current occupation: Medical Insurance Cognitive needs: No Hearing needs: No Vision needs: Yes Questionnaire PHQ-9 Over the last 2 weeks, how often have you been bothered by any of the following problems? 1. Little interest or pleasure in doing things: not at all 2. Feeling down, depressed, or hopeless: several days 3. Trouble falling or staying asleep, or sleeping too much: several days 4. Feeling tired or having little energy: several days 5. Poor appetite or overeating: not at all 6. Feeling bad about yourself - or that you are a failure or have let yourself or your family down: not at all 7. Trouble concentrating on things, such as reading the newspaper or watching television: not at all 8. Moving or speaking so slowly that other people could have noticed. Or the opposite - being so fidgety or restless that you have been moving around a lot more than usual: not at all 9. Thoughts that you would be better off or of hurting yourself in some way: not at all Total score: 3 64299 - PHQ-9 Billing: Yes Source: Developed by Drs. Ethan Lawson, Jaimie Wilson, Ahmet Glynn and colleagues, with an educational jermaine from [employer]. Thrive Questionnaire Date Thrive assessed: 10/29/24 I am a: Patient What is your living situation today?: I have a steady place to live Within the past 12 months, did the food you bought not last and you didn't have the money to get more?: Never true Within the past 12 months, did you worry whether your food would run out before you got money to buy more?: Never true Do you have trouble paying for medicines?: No Do you have trouble getting transportation to medical appointments?: No Do you have trouble paying your heating and electricity bill?: No Do you have trouble taking care of your child, family member or friend?: No Do you have trouble with day-to-day activities such as bathing, preparing meals, shopping, managing finances, etc.?: No Are you currently unemployed and looking for a job?: I choose not to answer this question Are you interested in more education?: No Please select the resources that you would like help with: None Currently or been in a relationship where the following occur: No concerns reported THRIVE Score: 0 AUDIT C Alcohol Use Questionnaire (AUDIT-C) 1. How often do you have a drink containing alcohol?: 4 or more times a week 2. How many drinks containing alcohol do you have on a typical day when you are drinking?: 3 or 4 3. How often do you have six or more drinks on one occasion?: Weekly Total Score: 8 BOGDAN-7 AMB Questionnaire BOGDAN-7 Date BOGDAN - 7 assessed: 10/29/24 Feeling nervous, anxious, or on edge: 1 = Several days Not being able to stop or control worryin = Several days Worrying too much about different things: 1 = Several days Trouble relaxin = Several days Being so restless that it is hard to sit still: 0 = Not at all Becoming easily annoyed or irritable: 0 = Not at all Feeling afraid as if something awful might happen: 0 = Not at all Total BOGDAN-7 score (0-4 normal; 5-9 mild; 10-14 moderate; 15-21 severe): 4 Source: Developed by Drs. Ethan Lawson, Jaimie Wilson, Ahmet Glynn and colleagues, with an educational jermaine from [employer]. BOGDAN-7 Assessment Billing BOGDAN-7 Assessment Tool: BOGDAN-7 Assessment 54964 Review of Systems Const Denies headache(s) Eyes Denies loss of vision ENT Denies vertigo, Denies dizziness, Denies headache(s) and Denies sore throat Card Denies chest pain, Denies leg edema and Denies lightheadedness Resp Denies cough, Denies hemoptysis and Denies wheezing GI Denies abdominal pain, Denies melena, Denies constipation, Denies diarrhea and Denies vomiting Denies dysuria, Denies urinary frequency and Denies urinary urgency Musc Denies arthralgias, Denies joint swelling, Denies numbness and Denies tingling Neuro Denies Abnormal speech present, Denies behavioral changes, Denies vertigo, Denies dizziness, Denies headache(s), Denies loss of vision, Denies memory loss, Denies numbness and Denies tingling Psych Denies anxiety, Denies behavioral changes, Denies depression, Denies memory loss and Denies panic attacks Roland/Lymph Denies easy bleeding and Denies easy bruising Aller/Immun Denies wheezing Physical exam (Primary Care) Vital Signs: Last Vital Signs Temp 96.9 F 10/29/24 10:22 Pulse 53 10/29/24 10:22 BP 122/82 10/29/24 10:22 Pulse Ox 98 10/29/24 10:22 Oxygen Delivery Method Room Air 10/29/24 10:22 BMI result Body Mass Index 31.1 BMI Assessment/Plan discussion: High BMI High, discussed plan: lifestyle, weight reduction, dietary and physical activity Tobacco/Smoking Status: Tobacco use Status Tobacco use date assessed 07/02/23 10/29/24 10:16 Patient Tobacco Use Status Never used Tobacco 10/29/24 10:16 e-Cigarette/Vaping Use Never Used 10/29/24 10:16 PHQ-9: PHQ-9 Score PHQ-9: Total score 3 10/29/24 10:29 Thrive Assessment: Date of Thrive Assessment Date Thrive assessed 10/29/24 10/29/24 10:24 Currently or been in a relationship where the following occur: No concerns reported Const Other: obese General: healthy appearing, no acute distress, alert and awake Nutritional Appearance: well nourished Orientation/consciousness: oriented to person, oriented to place and oriented to time HENMT Ears: TM's normal bilaterally General nose exam: Normal nasal mucous membranes and turbinates present Eyes Conjunctivae: conjunctivae normal Sclerae: sclerae normal Pupils: Equal, round and reactive pupils present Neck Neck: Yes no lymphadenopathy and Yes no JVD Thyroid: Thyroid normal Carotids: no bruits Resp Effort & Inspection: normal respiratory effort and not tachypneic Auscultation: no crackles, no rales, no rhonchi and no wheezes Cardio Rate: regular rate Rhythm: regular rhythm Heart sounds: no murmurs and normal S1 and S2 GI Palpation (GI): Soft to palpation, nontender, no hepatomegaly and no splenomegaly Auscultation: normal bowel sounds Skin General skin exam: no rashes or lesions noted and dry skin Neuro General: oriented to person, oriented to place and oriented to time Cranial nerves: Yes Equal, round and reactive pupils present Speech: No Abnormal speech present Gait exam (Neuro): Normal gait present Motor exam (neuro): no tremor noted Extrem Right upper extremity: full ROM Left upper extremity: full ROM Right lower extremity: full ROM; no edema Left lower extremity: full ROM; no edema Psych Mental Status: mental status grossly normal Speech and movement: Normal speech and movement present Affect: normal affect Attitude: cooperative Thought process: Normal thought process present Results AMB Hemoglobin A1c AMB Hemoglobin A1c 5.6 % Last Edit by NUNU Ford on 10/29/24 10:33 Coding Level of Care Code Est Pt Level 4 (78468) Diagnoses Type 2 diabetes mellitus with diabetic microalbuminuria, without long-term current use of insulin E11.29; R80.9 Diabetes mellitus assisted insulin use: without intermediate frame tender use Diabetes mellitus complication status: with kidney complications Diabetes mellitus complication detail: with diabetic microalbuminuria Permanent atrial fibrillation I48.21 Atrial fibrillation type: permanent Acquired hypothyroidism E03.9 Hypothyroidism type: acquired Essential hypertension I10 Status post panniculectomy Z98.890 Proteinuria, unspecified type R80.9 Proteinuria type: unspecified Additional Codes BOGDAN-7 Assessment Billing - BOGDAN-7 Assessment Tool: BOGDAN-7 Assessment 26769 ([id number]) PHQ-9 - 64040 - PHQ-9 Billing: Yes ([id number]) Assessment & Plan Assessment & Plan (1) DMII (diabetes mellitus, type 2): Code(s): E11.9 - Type 2 diabetes mellitus without complications Category: Medical Qualifiers: Diabetes mellitus assisted insulin use: without assisted use Diabetes mellitus complication status: with kidney complications Diabetes mellitus complication detail: with diabetic microalbuminuria Qualified Code(s): E11.29 - Type 2 diabetes mellitus with other diabetic kidney complication; R80.9 - Proteinuria, unspecified Plan: Patient's type 2 diabetes has been well controlled. Will continue him on his current dose of metformin and GLP 1 weekly. Goal A1c is to be below 6.5 (2) Atrial fibrillation: Comment: on eliquis -he has discontinued for procedures previously with no issues Code(s): I48.91 - Unspecified atrial fibrillation Category: Medical Qualifiers: Atrial fibrillation type: permanent Qualified Code(s): I48.21 - Permanent atrial fibrillation Plan: Continues on rate control with metoprolol and verapamil. Anticoagulated with Eliquis . We are actively pursuing an urgent cardiology consultation to assess anticoagulation therapy needs post-procedure. An EKG and echocardiogram are scheduled for further assessment, and the patient will maintain current Eliquis therapy while monitoring coagulation status. Had complication with his recent panniculectomy of serosanguineous drainage from a seroma. He has been restarted on Eliquis drainage has been stable. (3) Hypothyroidism: Code(s): E03.9 - Hypothyroidism, unspecified Category: Medical Qualifiers: Hypothyroidism type: acquired Qualified Code(s): E03.9 - Hypothyroidism, unspecified Plan: Patient's most recent TSH stable. Continues on levothyroxine 25 mcg daily. Will continue to follow TSH to assure normal. (4) Essential hypertension: Code(s): I10 - Essential (primary) hypertension Category: Medical Plan: Patient reports his blood pressure has been stable. Has been started on losartan 25 mg by his shank threader due to microalbuminuria noted. (5) Status post panniculectomy: Code(s): Z98.890 - Other specified postprocedural states Category: Surgical Plan: Followed by surgeon at [facility]. Had complication with his recent panniculectomy of serosanguineous drainage from a seroma. He has been restarted on Eliquis drainage has been stable. (6) Proteinuria: Code(s): R80.9 - Proteinuria, unspecified Category: Medical Qualifiers: Proteinuria type: unspecified Qualified Code(s): R80.9 - Proteinuria, unspecified Plan: Patient followed by Nephrology. Will place on losartan to help stabilize his proteinuria. Today's blood pressure acceptable in office. Orders: Orders AMB Hemoglobin A1c Today E11.29 - Type 2 diabetes mellitus with other diabetic kidney complication, R80.9 - Proteinuria, unspecified ECG 12 lead EKG Today I48.21 - Permanent atrial fibrillation CA echo transthoracic complete Today I48.21 - Permanent atrial fibrillation Prothrombin Time INR Today I48.21 - Permanent atrial fibrillation Patient Instructions: Goal: A1c to remain below 6.5, LDL to be below 100 Barriers: Adherence to physical activity habits
[2024-10-29 10:22] VITALS: BP 122/82; PULSE 53; TEMP 36.1; O2SAT 98; BMI 31.1
== END 2024-10-29 10:49 | disposition home or self-care (01) ==
LOC: HO.HMCH 10:11
PROVIDERS: PCP Physician Assistant; Visit Provider Physician Assistant
DX: E11.29 Type 2 diabetes mellitus with other diabetic kidney complication (principal); R80.9 Proteinuria, unspecified; I48.21 Permanent atrial fibrillation; E03.9 Hypothyroidism, unspecified; I10 Essential (primary) hypertension; Z98.890 Other specified postprocedural states

== ENCOUNTER 2024-11-20 07:36 | Day surgery (SDC) | payer OTHER, SELFPAY ==
[2024-11-18 15:41] VITALS: BMI 30.5
--- NOTE | 2024-11-19 11:44 | HO.ANESPROP2 ---
Documented by User: Freida Singh NP 11/19/24 11:50 HPI - Anesthesia Eval Consult details Narrative: 59yo M for Colonoscopy Afib, lucrecia - following with PCP only now, pending cardiac referral- ok'd to hold eliquis s/p panniculectomy 09/2024 with healing compications - ok'd to proceed with [place] Anesthesia Pre-Procedure Meds Is the patient on any of the following meds?: GLP1/DPP4 PMFSH Active Problems Active Problems: All Active Problems Status post panniculectomy (Acute) Proteinuria (Acute) DMII (diabetes mellitus, type 2) (Acute) Encounter for screening colonoscopy (Acute) Annual physical exam (Acute) Left leg pain (Acute) Nocturnal leg cramps (Acute) Albuminuria (Acute) Excess skin (Acute) Overweight (Acute) Adjustment disorder with anxiety (Acute) Constipation (Acute) Hypokalemia (Acute) Lower extremity edema (Acute) Hiatal hernia (Acute) Essential hypertension (Acute) Obesity (BMI 30-39.9) (Acute) Obesity (Acute) History of repair of hiatal hernia (Acute) S/P gastric bypass (Acute) Liver fibrosis (Acute) Steatosis, liver (Acute) Hypothyroidism (Acute) Atrial fibrillation (Acute) Hyperlipidemia (Acute) Sleep apnea with use of continuous positive airway pressure (CPAP) (Acute) Past Medical History Medical History Obesity (BMI 30-39.9) VILMA (obstructive sleep apnea) Cholelithiasis Congenital intra-abdominal adhesions Liver fibrosis Steatosis, liver BMI 39.0-39.9,adult Obesity COVID-19 vaccine series completed Major depressive disorder, recurrent, mild Preoperative cardiovascular examination Persistent atrial fibrillation Vitamin B1 deficiency Verruca Colon cancer screening Exposure to COVID-19 virus Herniated cervical disc Hypothyroidism Atrial fibrillation Hyperlipidemia Sleep apnea with use of continuous positive airway pressure (CPAP) Hypertension Insulin dependent type 1 diabetes mellitus Family History Family History Father Afib CVA (cerebral vascular accident) Mother CVA (cerebral vascular accident) Afib Family history of problems with anesthesia: No Surgical History Surgical History S/P panniculectomy (09/24/24) History of toe surgery S/P gastric bypass History of repair of hiatal hernia History of cardioversion History of Problems with Anesthesia: No Social History Social History Household Members: Spouse Household Members Other:: [facility] Are you a primary career placement services counselor to a significant other at home: No Do you presently have visiting nurse or other home services: No Alcohol intake: current Alcohol intake frequency: does not drink Patient Tobacco Use Status: Never used Tobacco e-Cigarette/Vaping Use: Never Used Second Hand Smoke Exposure: No Use of substances other than those prescribed or required for medical reasons: No Have you been hit, kicked, punched, or otherwise hurt by someone within the past year? If so, by whom?: No Are you DNR?: No Advance Directives: Yes Advance Directives Information Provided: No Advance Directives on File: Yes Advance Directives Date on File: 08/16/21 Poor oral hygiene: No service: No Current occupational status: unemployed Current occupation: Medical Insurance Cognitive needs: No Hearing needs: No Vision needs: Yes Meds Allergies Allergy/AdvReac Type Severity Reaction Status Date / Time No Known Allergies Allergy Verified 11/20/24 08:04 Home Medications ?Medication ?Instructions ?Recorded ?Confirmed ?Last Taken ?Type qqoiwjcl-zqbwyswi-zbez 45 mg-folic cap PO 10/10/21 10/29/24 Unknown History acid 800 mcg-vit K 120 mcg capsule (Bariatric Multivitamins) Exam Height,Weight and Vital Signs: Height 6 ft Weight 102.058 kg Pertinent Lab Results Pertinent Lab Results: Laboratory Tests 08/16/24 10/24/24 10:08 13:38 WBC 4.8 Hgb 12.1 L Hct 36.7 L Plt Count 241 Sodium 137 Potassium 4.4 Chloride 107 Carbon Dioxide 23 BUN 19 H Creatinine 0.80 Assessment and Plan Assessment Anesthesia Assessment: Chart Reviewed Final Anesthetic Review Family History of Problems with Anesthesia: No History of Problems with Anesthesia: No Documented by User: Kameron Hairston MD 11/20/24 08:53 [facility] Past Medical History Medical History Obesity (BMI 30-39.9) VILMA (obstructive sleep apnea) Cholelithiasis Congenital intra-abdominal adhesions Liver fibrosis Steatosis, liver BMI 39.0-39.9,adult Obesity COVID-19 vaccine series completed Major depressive disorder, recurrent, mild Preoperative cardiovascular examination Persistent atrial fibrillation Vitamin B1 deficiency Verruca Colon cancer screening Exposure to COVID-19 virus Herniated cervical disc Hypothyroidism Atrial fibrillation Hyperlipidemia Sleep apnea with use of continuous positive airway pressure (CPAP) Hypertension Insulin dependent type 1 diabetes mellitus Functional capacity: independent ambulation Family History Family History Father Afib CVA (cerebral vascular accident) Mother CVA (cerebral vascular accident) Afib Surgical History Surgical History S/P panniculectomy (09/24/24) History of toe surgery S/P gastric bypass History of repair of hiatal hernia History of cardioversion Social History Social History Household Members: Spouse Household Members Other:: [facility] Are you a primary career placement services counselor to a significant other at home: No Do you presently have visiting nurse or other home services: No Alcohol intake: current Alcohol intake frequency: does not drink Patient Tobacco Use Status: Never used Tobacco e-Cigarette/Vaping Use: Never Used Second Hand Smoke Exposure: No Use of substances other than those prescribed or required for medical reasons: No Have you been hit, kicked, punched, or otherwise hurt by someone within the past year? If so, by whom?: No Are you DNR?: No Advance Directives: Yes Advance Directives Information Provided: No Advance Directives on File: Yes Advance Directives Date on File: 08/16/21 Poor oral hygiene: No service: No Current occupational status: unemployed Current occupation: Medical Insurance Cognitive needs: No Hearing needs: No Vision needs: Yes Meds Allergies Allergy/AdvReac Type Severity Reaction Status Date / Time No Known Allergies Allergy Verified 11/20/24 08:04 Home Medications ?Medication ?Instructions ?Recorded ?Confirmed ?Last Taken ?Type hdtytjlv-cotdaaiq-[id number] 45 mg-folic cap PO 10/10/21 10/29/24 Unknown History acid 800 mcg-vit K 120 mcg capsule (Bariatric Multivitamins) Exam Exam Date and Time: 11/20/2024 Airway Mallampati Class: II Neck ROM: Full Heart: rrr Lungs: cta Assessment and Plan Final Anesthetic Review NPO: Yes ASA Class: II Final Preanesthetic Review: No Changes in Pt Med Stat, Meds/Allgs Chart Reviewed, Consent Obtained/Reviewed and Anes Risks/Benef Reviewed Patient Risk: Low Procedure Risk: Low Anesthetic Plan Anesthetic Plan: MAC: Disposition: Standard PACU
[2024-11-20] MEDS: Lactated Ringers 1,000 ML 100 ML IVCONT (08:02)
--- NOTE | 2024-11-20 08:05 | MHC.SHP ---
Pre-Procedural Eval Section A - 24 Hr Update-Section A only Date of Service: 11/20/24 Section B - Complete if H&P > 30 days Chief Complaint: screening Relevant Family History (Specify if Yes): No Relevant Social History: None Present Medications: see Short Stay Collaborative assessment Medical History: Significant History (Obesity (BMI 30-39.9) VILMA (obstructive sleep apnea) Cholelithiasis Congenital intra-abdominal adhesions Liver fibrosis Steatosis, liver BMI 39.0-39.9,adult Obesity COVID-19 vaccine series completed Major depressive disorder, recurrent, mild Preoperative cardiovascular examination Persistent atrial f) History of Previous Operations: Relevant previous surgery/procedure and date(s) (S/P panniculectomy (09/24/24) History of toe surgery S/P gastric bypass History of repair of hiatal hernia History of cardioversion) Allergies: Allergies Allergy/AdvReac Type Severity Reaction Status Date / Time No Known Allergies Allergy Verified 11/20/24 08:04 Review of Systems Sugical H&P ROS: Negative: Constitution, Cardiovascular, Respiratory, Neurological, Psychiatric, Hem-Onc, Allergic/Immunologic, Gastrointestinal, Genitourinary, Musculoskeletal, Integumentary, Endocrine and Eyes/Ears/Nose/Throat Exam Surgical H&P Exam: Normal: HEENT, Normal: Heart, Normal: Lungs, Normal: Extremities, Normal: Abdomen, Normal: Skin and Normal: Neurological Plan Diagnosis/Plan: Unchanged I have reviewed the history and physical and performed a pertinent physical examination on my patient. No changes have occurred unless specified. Time Spent With Patient Time: Total time managing care of this patient today ____ minutes.
[2024-11-20 08:21] VITALS: BP 145/96; PULSE 78; RESP 18; TEMP 36.7; O2SAT 100
[2024-11-20 08:37] LABS: Glucose, Whole Blood 83 mg/dL (60-115)
--- NOTE | 2024-11-20 09:09 | HO.OPN-COLON ---
Colonoscopy Operative Note Operative Note Date of Service: 11/20/24 Narrative: Operative Information Procedure Description: Colonoscopy Indication: screening Anesthesia: MAC COLONOSCOPY Instrument: Olympus variable stiffness pediatric scope 190L Colonoscopy Monitoring: Vital signs and clinical assessment, continuous EKG monitoring, Pulse oximetry, Carbon Dioxide monitoring and blood pressure monitoring were done throughout the procedure. Colon withdrawal time was 9 minutes. Procedure: The patient was placed in the left lateral decubitis position and pre-procedure medications were administered. After a digital rectal examination of the ano-rectum, the video colonoscope was inserted into the rectum and advanced through the colon to the cecum/TI. The colonoscope was slowly withdrawn in a retrograde panoramic fashion and the colon mucosa was carefully examined including a retroflexed view of the rectum. Findings and interventions are described below. Procedure Difficulty: easy Findings: Terminal Ileum-normal Cecum:normal Right sided retroflexion- normal Ascending Colon: normal Transverse Colon -normal Descending Colon:normal Sigmoid Colon: normal Rectum: Retroflexion with small internal hemorrhoids seen, grade I Anorectum - normal Intervention: none Colon preparation: [place] Bowel Preparation Scale Right colon; 2 Transverse colon: 2 Left colon; 2 (0 = Unprepared colon segment with mucosa not seen due to solid stool that cannot be cleared. 1 = Portion of mucosa of the colon segment seen, but other areas of the colon segment not well seen due to staining, residual stool and/or opaque liquid. 2 = Minor amount of residual staining, small fragments of stool and/or opaque liquid, but mucosa of colon segment seen well. 3 = Entire mucosa of colon segment seen well with no residual staining, small fragments of stool or opaque liquid) Impression and Post Procedure Diagnosis: internal hemorrhoids Plan: High fiber diet leaflet Avoid straining at stool, epsom salts and sitz bath, anusol supps or cream Repeat Colonoscopy in 10 years or earlier if clinically indicated Above findings were reviewed with the patient and relevant handouts were provided if indicated.
[2024-11-20 09:13] VITALS: BP 116/79; PULSE 79; RESP 16; TEMP 36.1; O2SAT 97
[2024-11-20 09:28] VITALS: BP 113/68; PULSE 83; RESP 18; TEMP 36.6; O2SAT 100
== END 2024-11-20 09:52 | disposition home or self-care (01) ==
PROVIDERS: PCP Physician Assistant; Visit Provider Internal Medicine Gastroenterology
PROC: 0DJD8ZZ Inspection of Lower Intestinal Tract, Via Natural or Artificial Opening Endoscopic (ICD-10-PCS; CPT 45378; principal; 2024-11-20 08:20)
DX: Z12.11 Encounter for screening for malignant neoplasm of colon (principal); K64.0 First degree hemorrhoids; I48.21 Permanent atrial fibrillation; E11.9 Type 2 diabetes mellitus without complications; K74.00 Hepatic fibrosis, unspecified; K76.0 Fatty (change of) liver, not elsewhere classified; I10 Essential (primary) hypertension; E78.5 Hyperlipidemia, unspecified; E03.9 Hypothyroidism, unspecified; E66.9 Obesity, unspecified; G47.33 Obstructive sleep apnea (adult) (pediatric); Z79.01 Long term (current) use of anticoagulants; Z79.84 Long term (current) use of oral hypoglycemic drugs; Z79.899 Other long term (current) drug therapy; Z98.84 Bariatric surgery status; Z98.890 Other specified postprocedural states
CPT/HCPCS: 45378; 82947

== ENCOUNTER → 2024-11-20 07:36 | Outpatient (BNV) | payer OTHER, SELFPAY | PROVIDERS: PCP Physician Assistant; Visit Provider Internal Medicine Gastroenterology | DX: Z12.11 Encounter for screening for malignant neoplasm of colon (principal); K64.0 First degree hemorrhoids | CPT/HCPCS: 45378 ==

== ENCOUNTER → 2024-11-21 14:25 | Outpatient (REF) | payer OTHER, SELFPAY ==
--- NOTE | 2024-11-21 14:28 | ECG_ITS ---
Test Reason : PERM AFIB Blood Pressure : */* mmHG Vent. Rate : 84 BPM Atrial Rate : * BPM P-R Int : * ms QRS Dur : 92 ms QT Int : 370 ms P-R-T Axes : * 67 19 degrees QTcB Int : 437 ms Atrial fibrillation Abnormal ECG When compared with ECG of 30-May-2021 08:57, No significant change was found Referred By: Quique Del Cid Electronically Signed By: THAO PRECIADO MD
--- NOTE | 2024-11-21 14:28 | CA_ITS ---
Transthoracic Echocardiogram Patient (Last, First, Middle): Colton Taylor, Gender: Male Date of : 1965 Age: 59 Procedure Date: 11/21/2024 Procedure Type: Transthoracic Echocardiogram Location: OP Height: 182.88 cm Weight: 103.87 kg BSA: 2.26 m2 Heart Rate: 81 bpm BP: 122 / 82 mmHg Lieutenant Ballistics: DOMINIQUE Referring MD: Quique Del Cid PA-C Symptoms: I48.21 - Permanent atrial fibrillation Study Quality: Adequate w contrast ECG Rhythm: Atrial Fibrillation Conclusions: - 1. Normal LV ejection fraction of 60 65% with restrictive filling pattern 2. Moderately dilated right ventricle with preserved systolic function by TAPSE 3. Severely dilated left atrium 4. Mild calcific aortic and mitral valve changes with normal cardiac valvular Dopplers 5. Normal RV systolic pressure 6. No gross pericardial effusion Findings Procedure Information Contrast agent, definity, is being given per protocol without apparent complications. Left Ventricle Normal left ventricular size, thickness, and systolic function. The visually estimated ejection fraction is between 60-65%. Spectral Doppler is indicative of a restrictive filling pattern. Right Ventricle Moderately increased right ventricular cavity size. There is normal right ventricular systolic function. Atria The left atrium is severely dilated. Interatrial shunt cannot be excluded. The right atrium was not well visualized. Aortic Valve There is mild calcification of the aortic valve. There is no aortic valve stenosis. There is no aortic valve regurgitation. Mitral Valve There is mild anterior and posterior mitral leaflet thickening. There is mild anterior and mild posterior mitral annular calcification. There is trace mitral valve regurgitation. There is no mitral valve stenosis. Pulmonic Valve The pulmonic valve was not well visualized. Tricuspid Valve Likely normal tricuspid valve structure and function. There is mild tricuspid valve regurgitation. The right ventricular systolic pressure is normal. The right ventricular systolic pressure is 33 mmHg. Normal right atrial pressure. There is no evidence of pulmonary hypertension. Great Vessels All visible segments of the aorta are normal in size. The pulmonary artery was not well visualized. There is no dilatation of the ascending aorta measuring 2.90 cm. Venous The inferior vena cava is normal in size and collapses greater than 50% with inspiration. Pericardium/Pleural There is no evidence of pericardial effusion. Prior Study Comparison No significant change compared to prior study dated: 08/08/2021. Measurements 2D Linear Measurements IVSd: 0.71 0.6-0.9/0.6-1.0 cm LVIDd: 5.18 3.9-5.3/4.2-5.9 cm LVIDd Index: 2.29 2.4-3.2/2.2-3.1 cm/m2 LVIDs: 4.03 2.0-3.6 cm LVPWd: 0.69 0.7-1.1 cm LA Diam: 5.20 2.7-3.8/3.0-4.0 cm LAIDs Index: 2.30 1.5-2.3 cm/m2 LV Mass: 151.06 67-162/88-224 g LV Mass Index: 66.84 43-95/49-115 g/m2 LVOT Diam: 2.20 3.0+(-)1.3 cm 2D Systolic Function EF 4C: 55.70 >55% EF 2C: 67.90 >55% EF BiP: 62.70 >55% Mitral Valve MV Pk E: 1.27 MV Decel Time: 157.00 E'Medial: 8.70 E/E' Med: 14.60 Aortic Valve AoV Pk Mikhail: 1.31 AoV Pk Grad: 7.00 KIP: 2.72 LVOT LVOT Pk Mikhail: 0.94 LVOT Mn Mikhail: 0.71 LVOT VTI: 0.23 LVOT Pk Grad: 4.00 LVOT Mn Grad: 2.00 LVOT Diam: 2.20 LVOT Area: 3.80 Diastolic Function MV Pk E: 1.27 E'Medial: 8.70 E/E' Med: 14.60 Right Ventricle TAPSE (mm): 20.10 TVS' Mikhail: 10.10 Tricuspid Valve TR Pk Mikhail: 2.50 TR Pk Grad: 25.00 RA Press: 8.00 RVSP: 33.00 Great Vessels Aorta Sinus of Valsalva: 3.10 2.0-3.5 cm Ao Asc: 2.90 2.1-3.4 cm Ao Arch: 2.70 Pulmonary Valve PV Pk Mikhail: 0.90 Peak PV Grad: 3.00 Updated in Other Vendor System with Status of Final Berto Alejo MD electronically signed on 11/22/2024 11:49:26 AM with status of Final
== END ==
LOC: HO.CARD 14:25
PROVIDERS: PCP Physician Assistant; Visit Provider Physician Assistant
DX: I48.21 Permanent atrial fibrillation (principal)
CPT/HCPCS: 93005; 93306; Q9957

== ENCOUNTER → 2024-11-21 14:28 | Outpatient (BNV) | payer OTHER, SELFPAY | PROVIDERS: PCP Physician Assistant; Visit Provider Internal Medicine Cardiovascular Disease | DX: I48.91 Unspecified atrial fibrillation (principal) | CPT/HCPCS: 93010 ==

== ENCOUNTER 2025-03-09 10:36 | Outpatient (AMB) | payer OTHER, SELFPAY ==
--- NOTE | 2025-03-09 10:32 | HO.NEPHOV ---
Vital Signs 03/09/25 10:33 Height 6 ft Weight 230 lb BMI 31.2 Intake Visit Reasons: R/S 03/02/2025 Presser Automatic Required: No Accompanied by: Self / Same As Patient Allergies No Known Allergies Allergy (Verified 03/09/25 10:33) Medication List - Last Reconciled 03/09/25 by Jay Negron MD apixaban 5 mg PO BID 90 days blood sugar diagnostic (FreeStyle Lite Strips) Test blood sugar three times per day blood-glucose meter (FreeStyle Lite Meter kit) testing three times per day blood-glucose meter (FreeStyle Lite Meter kit) As directed flash glucose scanning reader (FreeStyle Manda 2 Hartman) As directed flash glucose sensor (FreeStyle Manda 14 Day Sensor kit) As directed - covering for Branden Del Cid flash glucose sensor (FreeStyle Manda 2 Sensor kit) As directed lancets (FreeStyle Lancets) As directed 3 times per day losartan 25 mg PO DAILY metformin 500 mg PO DAILY 90 days metoprolol succinate ER 100 mg PO DAILY 90 days [id number]-[id number]-FA-vit K 45 mg iron- 800 mcg-120 mcg (Bariatric Multivitamins) caps PO Synthroid (levothyroxine) 25 mcg PO DAILY 90 days NS tirzepatide (Mounjaro) 7.5 mg (0.5 mL) subcut QWEEK verapamil ER 240 mg PO DAILY 90 days HPI Comments Details: Colton is a 58-year-old man with a history of diabetes mellitus for more than 20 years along with significant obesity. He underwent gastric bypass surgery in 2021. He lost about 150 lb Back in 2021 he had a urine microalbumin creatinine ratio of 22. Which has gradually increased to 611 as of June 2023 and hence this referral. Serum creatinine has been stable around 0.8 mg/dL. He has a history of atrial fibrillation and currently on metoprolol and verapamil for both rate control and management of hypertension. In addition he is on hydrochlorothiazide 25 mg a day. At present he has no specific complaints like shortness of breath chest pain nausea vomiting leg edema. No polyuria polydipsia. 1029/24 Maunjaro has been added;Lost 14 lbs 09/02/24 Still on Maunjaro Lost 10 lbs Home BP seems OK 03/09/2025. This is a tele visit. No specific complaints today. [facility] Medical History Obesity (BMI 30-39.9) VILMA (obstructive sleep apnea) Cholelithiasis Congenital intra-abdominal adhesions Liver fibrosis Steatosis, liver BMI 39.0-39.9,adult Obesity COVID-19 vaccine series completed Major depressive disorder, recurrent, mild Preoperative cardiovascular examination Persistent atrial fibrillation Vitamin B1 deficiency Verruca Colon cancer screening Exposure to COVID-19 virus Herniated cervical disc Hypothyroidism Atrial fibrillation Hyperlipidemia Sleep apnea with use of continuous positive airway pressure (CPAP) Hypertension Insulin dependent type 1 diabetes mellitus Surgical History S/P panniculectomy (09/24/24) History of toe surgery S/P gastric bypass History of repair of hiatal hernia History of cardioversion Family History Father Afib CVA (cerebral vascular accident) Mother CVA (cerebral vascular accident) Afib Social History Household Members: Spouse Household Members Other:: Housing: Condominium Are you a primary respiratory care faculty to a significant other at home: No Do you presently have visiting nurse or other home services: No Alcohol intake: current Alcohol intake frequency: does not drink Patient Tobacco Use Status: Never used Tobacco e-Cigarette/Vaping Use: Never Used Second Hand Smoke Exposure: No Advance Directives Date on File: 08/16/21 service: No Current occupational status: unemployed Current occupation: Medical Insurance Cognitive needs: No Hearing needs: No Vision needs: Yes Review of Systems Const Denies fever(s) and Denies weight loss Card Denies chest pain Resp Denies cough and Denies hemoptysis GI Denies abdominal pain, Denies diarrhea and Denies nausea Musc Denies back pain Neuro Denies focal weakness Physical Exam Vital Signs: BMI result Body Mass Index 31.2 Telehealth Telehealth Telehealth Platform: Telephone Location of provider rendering services: practice address Location of patient: address on file Patient Identification confirmed using: Name, : Yes Telehealth method: voice only Patient verbally consented to treatment: Yes Patient verbally consented to billing insurance company: Yes Patient informed of any privacy concerns related to visit: Yes Minutes spent on Phone/Video with Pt.: 9 Results Reviewed Nephrology Results: Sodium, (135-145) 137 mmol/L 10/24/24 Potassium, (3.3-5.1) 4.4 mmol/L 10/24/24 Chloride, (96-108) 107 mmol/L 10/24/24 Carbon Dioxide, (22-29) 23 mmol/L 10/24/24 BUN, (9-16) 19 mg/dL H 10/24/24 Creatinine, (0.5-1.4) 0.80 mg/dL 10/24/24 Calcium, (8.4-10.2) 9.5 mg/dL 10/24/24 Urine Protein, (Neg-Trace) Trace mg/dL 10/29/24 Urine Creatinine 44.83 mg/dL 10/29/24 Assessment & Plan Assessment & Plan (1) DMII (diabetes mellitus, type 2): Code(s): E11.9 - Type 2 diabetes mellitus without complications Category: Medical Qualifiers: Diabetes mellitus complication detail: with diabetic microalbuminuria Diabetes mellitus complication status: with kidney complications Diabetes mellitus medical terminologist insulin use: without long-term use Qualified Code(s): E11.29 - Type 2 diabetes mellitus with other diabetic kidney complication; R80.9 - Proteinuria, unspecified Plan: Maintain A1c less than 7% He will benefit from SGLT2 inhibitor Currently on Mared will monitor urine protein (2) Proteinuria: Code(s): R80.9 - Proteinuria, unspecified Category: Medical Qualifiers: Proteinuria type: unspecified Qualified Code(s): R80.9 - Proteinuria, unspecified (3) Albuminuria: Comment: Albuminuria in the setting of obesity and diabetes mellitus Code(s): R80.9 - Proteinuria, unspecified Category: Medical Plan Colton is a 59-year-old man with a history of obesity and longstanding diabetes mellitus with proteinuria. While he was obese the urine microalbumin creatinine ratio was 47. However after losing weight the urine protein excretion is in gradually increased to 611. I believe this is primarily due to underlying diabetes mellitus than obesity. Renal function stable. Goal is to slow the progression of renal disease. He will benefit from an MOHIT inhibitor or ARB. Keep losartan 25 mg daily for now Urine protein excretion has decreased. Protein creatinine ratio has decreased from 1012 down to 270. to 163 Repeat labs ordered At present blood pressure is well controlled. Continue with both metoprolol and verapamil since these are being used for rate control in the setting of atrial fibrillation. Encouraged him to stay on low-sodium diet He should monitor his blood pressure at home. Orders: Orders Basic Metabolic Panel Today R80.9 - Proteinuria, unspecified Total Protein Urine Random Today R80.9 - Proteinuria, unspecified Complete Blood Count no Diff Today R80.9 - Proteinuria, unspecified Creatinine Urine Today R80.9 - Proteinuria, unspecified UA and rflx microscopic Today R80.9 - Proteinuria, unspecified Coding Level of Care Code Tele Est Pt Level 3 (86042) Diagnoses Type 2 diabetes mellitus with diabetic microalbuminuria, without long-term current use of insulin E11.29; R80.9 Diabetes mellitus complication detail: with diabetic microalbuminuria Diabetes mellitus complication status: with kidney complications Diabetes mellitus long-term insulin use: without long-term use Proteinuria, unspecified type R80.9 Proteinuria type: unspecified Albuminuria R80.9
[2025-03-09 10:33] VITALS: BMI 31.2
== END 2025-03-09 12:01 | disposition home or self-care (01) ==
LOC: HO.HKA 10:36
PROVIDERS: PCP Physician Assistant; Visit Provider Internal Medicine Hypertension Specialist
DX: E11.29 Type 2 diabetes mellitus with other diabetic kidney complication (principal); R80.9 Proteinuria, unspecified
CPT/HCPCS: 99213

== ENCOUNTER 2025-04-02 10:25 | Outpatient (REF) | payer OTHER, SELFPAY ==
[2025-04-02 11:21] LABS: Mean Corpuscular Hemoglobin 23.0 pg (27.0-33.0); NRBC Abs Auto 0.000 X10*3/uL (0.0-0.012); NRBC Pct Auto 0.0 /100WBC (0.0-0.2)
[2025-04-02 11:23] LABS: Hematocrit 36.1 % (42.0-52.0); Hemoglobin 11.2 g/dl (14.0-18.0); Mean Corpuscular HGB Conc 31.0 g/dl (31.0-36.0); Mean Corpuscular Volume 74.1 fL (80.0-98.0); Platelet Count 241 X10*3/uL (160-400); Red Blood Count 4.87 X10*6/uL (4.60-5.80); White Blood Count 4.8 X10*3/uL (4.8-10.8)
[2025-04-02 11:35] LABS: Appearance Urine Clear; Glucose Urine UA Negative (Negative); PH 7.0 (5.0-9.0); Specific Gravity - Urine 1.015 (1.005-1.025); UMIC TRIGGER UA YES
[2025-04-02 11:35] LABS: PLT ABN DIST 1
[2025-04-02 11:45] LABS: Anion Gap 11 (12-20); Blood Urea Nitrogen 16 mg/dL (9-16); Calcium 9.2 mg/dL (8.4-10.2); Carbon Dioxide 26 mmol/L (22-29); Chloride 108 mmol/L (96-108); Estimated Glomerular Filt Rate > 60; Potassium 4.6 mmol/L (3.3-5.1); Sodium 140 mmol/L (135-145)
[2025-04-02 12:03] LABS: Total Protein Urine Random 34 mg/dL (<12)
== END 2025-04-02 10:26 | disposition home or self-care (01) ==
LOC: HO.LAB 10:25
PROVIDERS: PCP Physician Assistant; Visit Provider Internal Medicine Hypertension Specialist
DX: R80.9 Proteinuria, unspecified (principal)
CPT/HCPCS: 36415; 80048; 81001; 82570; 84156; 85027

== ENCOUNTER 2025-04-30 09:30 | Outpatient (REF) | payer OTHER, SELFPAY ==
[2025-04-30 10:31] LABS: Mean Corpuscular Volume 74.5 fL (80.0-98.0); NRBC Abs Auto 0.000 X10*3/uL (0.0-0.012); NRBC Pct Auto 0.0 /100WBC (0.0-0.2)
[2025-04-30 10:32] LABS: Hematocrit 37.9 % (42.0-52.0); Hemoglobin 11.9 g/dl (14.0-18.0); Mean Corpuscular HGB Conc 31.4 g/dl (31.0-36.0); Mean Corpuscular Hemoglobin 23.4 pg (27.0-33.0); Platelet Count 255 X10*3/uL (160-400); Red Blood Count 5.09 X10*6/uL (4.60-5.80); White Blood Count 5.6 X10*3/uL (4.8-10.8)
[2025-04-30 10:37] LABS: PLT ABN DIST 1
[2025-04-30 11:19] LABS: Alanine Aminotransferase 43 U/L (0-40); Albumin Level 4.4 g/dL (3.5-5.0); Alkaline Phosphatase 114 U/L (39-117); Anion Gap 12 (12-20); Aspartate Amino Transferase 35 U/L (5-37); Blood Urea Nitrogen 11 mg/dL (9-16); Calcium 9.1 mg/dL (8.4-10.2); Carbon Dioxide 24 mmol/L (22-29); Chloride 106 mmol/L (96-108); Cholesterol 144 mg/dL (<200); Estimated Glomerular Filt Rate > 60; HDL Cholesterol 58 mg/dL (>40); Potassium 4.3 mmol/L (3.3-5.1); Sodium 138 mmol/L (135-145); Total Protein 6.8 g/dL (6.5-8.0); Triglycerides 82 mg/dL (<150)
== END 2025-04-30 09:31 | disposition home or self-care (01) ==
LOC: HO.LAB 09:30
PROVIDERS: PCP Physician Assistant; Visit Provider Physician Assistant
DX: E11.29 Type 2 diabetes mellitus with other diabetic kidney complication (principal); R80.9 Proteinuria, unspecified; E03.9 Hypothyroidism, unspecified
CPT/HCPCS: 36415; 80053; 80061; 84443; 85027